=== PATIENT | female | born 1940 | race African-American/Black ===

== ENCOUNTER → 2016-06-02 | Outpatient (CLI) | payer MEDICARE, OTHER ==
[~2016-06-02] VITALS: Ht 170.2 cm; Wt 81.5 kg
[~2016-06-02] MED LIST: ALBU8HFA IH; ALPR0.255 PO; AMLO5TAB66 PO; BENZ-26 PO; BIMA12.5OS OS; BRIN8DRO OS; CHOL2000 PO; CLON.1 PO; DIAZ10 PO; DICLOFENAC; DILT90 PO; DORZ1DRO5 OU; FLUT1DIS3 IH; IPRAHFA IH; LACT30L PO; MEMA5 PO; OMEP20 PO; OXYB5 PO; OXYC10 PO; OXYC5TAB3 PO; PANT40TA25 PO; PREDFORTE; PROMVCC5L PO; ROFL500T PO; SENN8.6C5 PO; SOLI5 PO; TIOT185 IH; TRAZ-144 PO; ZOLP5TAB8 PO
[2016-06-02 13:21] VITALS: BP 166/78
== END | disposition home or self-care (01) ==
LOC: SRCNTR 13:00
PROVIDERS: ATTEND Internal Medicine Critical Care Medicine
DX: J44.9 Chronic obstructive pulmonary disease, unspecified (principal); J96.10 Chronic respiratory failure, unspecified whether with hypoxia or hypercapnia; G47.33 Obstructive sleep apnea (adult) (pediatric); I10 Essential (primary) hypertension
CPT/HCPCS: G0463

== ENCOUNTER → 2016-06-30 | Outpatient (CLI) | payer MEDICARE, OTHER ==
[~2016-06-30] VITALS: Ht 170.2 cm; Wt 83.0 kg
[~2016-06-30] MED LIST changes: +LISI-660 PO
[2016-06-30 13:19] VITALS: BP 148/84
== END | disposition home or self-care (01) ==
LOC: SRCNTR 12:55
PROVIDERS: ATTEND Internal Medicine Critical Care Medicine
DX: I10 Essential (primary) hypertension (principal); J44.1 Chronic obstructive pulmonary disease with (acute) exacerbation; J96.10 Chronic respiratory failure, unspecified whether with hypoxia or hypercapnia; G47.33 Obstructive sleep apnea (adult) (pediatric)
CPT/HCPCS: G0463

== ENCOUNTER 2016-07-12 08:57 | Day surgery (SDC) | payer MEDICARE, OTHER ==
[~2016-07-12] VITALS: Ht 170.2 cm; Wt 83.2 kg
[~2016-07-12 08:57] MED LIST changes: -BIMA12.5OS OS; -BRIN8DRO OS; -DIAZ10 PO; -DICLOFENAC; +FentaNYL CITRATE-PF 100 MCG/2 ML VIAL IVP ONE; +LABETALOL HCL 5 MG/ML 20 ML VIAL IVP ONE; -LISI-660 PO; +MIDAZOLAM HCL 2 MG/2 ML VIAL IVP ONE; -OXYC10 PO; -OXYC5TAB3 PO; -PREDFORTE; -PROMVCC5L PO
[2016-07-12] MEDS ORDERED: RINGERS SOLUTION,LACTATED 500 ML IV ONE ×2 (09:00→09:04)
[2016-07-12] MEDS ORDERED: DICLOFENAC SODIUM 0.1% 2.5 ML OPHTHALMIC SOLUTION ONE (09:03)
[2016-07-12] MEDS ORDERED: TETRACAINE HCL 0.5% 2 ML OPHTHALMIC SOLUTION ONE (09:03)
[2016-07-12] MEDS ORDERED: PHENYLEPHRINE HCL 2.5% 2 ML OPHTHALMIC SOLUTION ONE (09:04)
[2016-07-12] MEDS ORDERED: CYCLOPENTOLATE HCL 2% 2 ML OPHTHALMIC SOLUTION ONE (09:04)
[2016-07-12] MEDS ORDERED: GATIFLOXACIN 0.5% 2.5 ML OPHTHALMIC SOLUTION ONE (09:04)
[2016-07-12] MEDS ORDERED: ACETAMINOPHEN 325 MG TABLET PO PRN (09:15)
[2016-07-12] MEDS ORDERED: TETRACAINE HCL 0.5% 2 ML OPHTHALMIC SOLUTION OS ONE ×2 (09:15→12:00)
[2016-07-12] MEDS: CYCLOPENTOLATE HCL 2% 2 ML OPHTHALMIC SOLUTION OS SCH ×3 (09:46→10:00)
[2016-07-12] MEDS: DICLOFENAC SODIUM 0.1% 2.5 ML OPHTHALMIC SOLUTION OS SCH ×3 (09:46→10:09)
[2016-07-12] MEDS: GATIFLOXACIN 0.5% 2.5 ML OPHTHALMIC SOLUTION OS SCH ×3 (09:46→10:09)
[2016-07-12] MEDS: PHENYLEPHRINE HCL 2.5% 2 ML OPHTHALMIC SOLUTION OS SCH ×3 (09:46→10:01)
[2016-07-12] MEDS ORDERED: OXYC5TAB3 PO (10:48)
[2016-07-12] MEDS ORDERED: AcetaZOLAMIDE 250 MG TABLET PO ONE (11:15)
[2016-07-12] MEDS ORDERED: MOXIFLOXACIN HCL 0.5% 3 ML OPHTHALMIC SOLUTION OS ONE (12:00)
[2016-07-12] MEDS ORDERED: LIDOCAINE HCL/PF 1% 2 ML VIAL INJ ONE (12:00)
[2016-07-12] MEDS ORDERED: HYALURONATE SODIUM 12 MG/ML 0.8 ML SYRINGE IO ONE (12:00)
[2016-07-12] MEDS ORDERED: TETRACAINE HCL VISCOUS 0.5% 0.6 ML OPHTHALMIC SOLUTION OS ONE (12:00)
[2016-07-12] MEDS ORDERED: EPINEPHrine 1:1,000 [1 MG/ML] AMP IVP ONE (12:00)
[2016-07-12] MEDS ORDERED: HYALURONATE SOD/CHONDROITIN SOD 0.5 ML VIAL IO ONE (12:00)
[2016-07-12] MEDS ORDERED: POVIDONE-IODINE 10% 15 ML SOLUTION UD TP ONE (12:00)
[2016-07-12] MEDS ORDERED: BRIMONIDINE TARTRATE 0.15% 5 ML OPHTHALMIC SOLUTION OS ONE (12:00)
[2016-10-03] MEDS ORDERED: PROMVCC5L PO (14:10)
[2016-10-03] MEDS ORDERED: BENZ-26 PO (14:10)
== END 2016-07-12 11:50 | disposition home or self-care (01) ==
LOC: SURGERY 08:57
PROVIDERS: ATTEND Ophthalmology
DX: H26.9 Unspecified cataract (principal); I11.9 Hypertensive heart disease without heart failure; I45.10 Unspecified right bundle-branch block; J44.9 Chronic obstructive pulmonary disease, unspecified; F41.9 Anxiety disorder, unspecified; F32.9 Major depressive disorder, single episode, unspecified; Z88.0 Allergy status to penicillin; Z88.2 Allergy status to sulfonamides; Z98.41 Cataract extraction status, right eye; Z87.891 Personal history of nicotine dependence; Z90.710 Acquired absence of both cervix and uterus
CPT/HCPCS: 66984; 93005; C1780; J2250; J3010; J3490; J7120; J0171

== ENCOUNTER 2016-08-23 08:34 | Emergency (ER) | payer MEDICARE, OTHER ==
[~2016-08-23] VITALS: Ht 162.6 cm; Wt 79.0 kg
[~2016-08-23 08:34] MED LIST changes: -ALPR0.255 PO; -AMLO5TAB66 PO; -BENZ-26 PO; -CHOL2000 PO; -DORZ1DRO5 OU; -FLUT1DIS3 IH; -FentaNYL CITRATE-PF 100 MCG/2 ML VIAL IVP ONE; -IPRAHFA IH; -LABETALOL HCL 5 MG/ML 20 ML VIAL IVP ONE; -LACT30L PO; -MIDAZOLAM HCL 2 MG/2 ML VIAL IVP ONE; +OXYC5TAB3 PO; -PANT40TA25 PO; -ROFL500T PO; -SENN8.6C5 PO; -SOLI5 PO; -TIOT185 IH; -TRAZ-144 PO; -ZOLP5TAB8 PO
[2016-08-23] MEDS ORDERED: PREDFORTE (08:43)
[2016-08-23] MEDS ORDERED: BIMA12.5OS OS (08:43)
[2016-08-23] MEDS ORDERED: BRIN8DRO OS (08:43)
[2016-08-23] MEDS ORDERED: DICLOFENAC (08:43)
[2016-08-23] MEDS ORDERED: PROPARACAINE HCL 0.5% 15 ML OPHTHALMIC SOLUTION OS ONE (09:00)
[2016-08-23] MEDS ORDERED: OxyCODONE HCL/ACETAMINOPHEN 5-325 MG TABLET PO ONE (10:00)
[2016-08-23 10:42] VITALS: BP 128/90
[2016-10-03] MEDS ORDERED: BENZ-26 PO (14:10)
[2016-10-03] MEDS ORDERED: PROMVCC5L PO (14:10)
== END 2016-08-23 11:14 | disposition home or self-care (01) ==
LOC: EMS 08:35
DX: H16.202 Unspecified keratoconjunctivitis, left eye (principal); J44.9 Chronic obstructive pulmonary disease, unspecified; I10 Essential (primary) hypertension; F17.210 Nicotine dependence, cigarettes, uncomplicated; Z88.0 Allergy status to penicillin; Z88.1 Allergy status to other antibiotic agents; Z88.8 Allergy status to other drugs, medicaments and biological substances
CPT/HCPCS: 70450; 99284

== ENCOUNTER → 2016-08-31 | Outpatient (CLI) | payer MEDICARE, OTHER ==
[~2016-08-31] VITALS: Ht 170.2 cm; Wt 80.0 kg
[~2016-08-31] MED LIST changes: +BIMA12.5OS; +BRIN8DRO OP; +DICLOFENAC; +PREDFORTE
[2016-08-31 11:13] VITALS: BP 144/75
== END | disposition home or self-care (01) ==
LOC: SRCNTR 10:56
PROVIDERS: ATTEND Internal Medicine Critical Care Medicine
DX: J96.10 Chronic respiratory failure, unspecified whether with hypoxia or hypercapnia (principal); G47.33 Obstructive sleep apnea (adult) (pediatric); J44.1 Chronic obstructive pulmonary disease with (acute) exacerbation; I11.0 Hypertensive heart disease with heart failure; I50.30 Unspecified diastolic (congestive) heart failure; I27.2 Other secondary pulmonary hypertension; I82.409 Acute embolism and thrombosis of unspecified deep veins of unspecified lower extremity; E66.9 Obesity, unspecified; Z87.891 Personal history of nicotine dependence
CPT/HCPCS: G0463

== ENCOUNTER → 2016-10-03 | Outpatient (CLI) | payer MEDICARE, OTHER ==
[~2016-10-03] VITALS: Ht 170.2 cm; Wt 79.5 kg
[~2016-10-03] MED LIST changes: +BENZ-26 PO; -BIMA12.5OS; +BIMA12.5OS OS; -BRIN8DRO OP; +BRIN8DRO OS; +DIAZ10 PO; +LISI-660 PO; +OXYC10 PO; +PROMVCC5L PO; +TRAZ-144 PO
[2016-10-03 14:03] VITALS: BP 141/83
== END | disposition home or self-care (01) ==
LOC: SRCNTR 13:38
PROVIDERS: ATTEND Internal Medicine Critical Care Medicine
DX: J96.10 Chronic respiratory failure, unspecified whether with hypoxia or hypercapnia (principal); G47.33 Obstructive sleep apnea (adult) (pediatric); F32.9 Major depressive disorder, single episode, unspecified; J44.1 Chronic obstructive pulmonary disease with (acute) exacerbation; I11.0 Hypertensive heart disease with heart failure; I50.30 Unspecified diastolic (congestive) heart failure; I27.2 Other secondary pulmonary hypertension; I35.1 Nonrheumatic aortic (valve) insufficiency; E78.5 Hyperlipidemia, unspecified; J18.9 Pneumonia, unspecified organism; E66.9 Obesity, unspecified; I82.409 Acute embolism and thrombosis of unspecified deep veins of unspecified lower extremity; Z87.891 Personal history of nicotine dependence
CPT/HCPCS: G0463

== ENCOUNTER → 2016-10-13 | Outpatient (CLI) | payer MEDICARE, OTHER ==
[~2016-10-13] VITALS: Ht 170.2 cm; Wt 80.2 kg
[~2016-10-13] MED LIST changes: -LISI-660 PO
[2016-10-13 09:38] VITALS: BP 150/77
== END | disposition home or self-care (01) ==
LOC: SRCNTR 09:33
PROVIDERS: ATTEND Hospitalist
DX: J44.9 Chronic obstructive pulmonary disease, unspecified (principal); I10 Essential (primary) hypertension
CPT/HCPCS: G0463

== ENCOUNTER → 2016-10-13 | Outpatient (CLI) | payer MEDICARE, OTHER ==
[~2016-10-13] MED LIST changes: +BIMA12.5OS; -BIMA12.5OS OS; +BRIN8DRO OP; -BRIN8DRO OS; -DIAZ10 PO; -OXYC10 PO; -TRAZ-144 PO
[2016-10-13 11:33] LABS: BASOPHILS % (AUTO) 0.6 % (0.0-2.0); EOSINOPHILS % (AUTO) 0.5 % (1.0-6.0); HEMATOCRIT 32.9 % (36-46); HEMOGLOBIN 10.6 g/dL (12.0-16.0); LYMPHOCYTES # (AUTO) 1.3 K/uL (1.0-4.8); LYMPHOCYTES % (AUTO) 37.2 % (22.0-44.0); MEAN CORPUSCULAR HEMOGLOBIN 22.1 pg (26.0-34.0); MEAN CORPUSCULAR HGB CONC 32.2 G/dL (31.0-37.0); MEAN CORPUSCULAR VOLUME 69 fL (80-100); MONOCYTES # (AUTO) 0.3 K/uL (0.1-1.0); NEUTROPHILS # (AUTO) 1.9 K/uL (1.8-7.7); NEUTROPHILS % (AUTO) 52.7 % (40.0-70.0); PLATELET COUNT (AUTO) 194 K/uL (150-450); RED BLOOD CELL COUNT(AUTO) 4.79 MIL/uL (4.00-5.20); RED CELL DISTRIBUTION WIDTH 18.1 % (11.5-14.5); WHITE BLOOD COUNT (AUTO) 3.5 K/uL (4.5-11.0)
[2016-10-13 11:45] LABS: ALANINE AMINOTRANSFERASE 19 U/L (12-78); ALBUMIN 3.8 g/dL (3.4-5.0); ANION GAP 6 mmol/L (8-16); ASPARTATE AMINOTRANSFERASE 17 U/L (15-37); BILIRUBIN,TOTAL 0.4 mg/dL (0.1-1.0); CALCIUM, TOTAL 9.5 mg/dL (8.8-10.5); CARBON DIOXIDE 31 mmol/L (22-29); CHLORIDE 104 mmol/L (98-107); CHOL/HDL RATIO 5.5 (3.9-5.7); GLOMERULAR FILTR. RATE CALC > 60 mL/min (>60); POTASSIUM 3.8 mmol/L (3.5-5.1); SODIUM SERUM 141 mmol/L (136-145); THYROID STIMULATING HORMONE 0.81 uIU/mL (0.36-3.74); TOTAL PROTEIN, SERUM 7.6 g/dL (6.4-8.2); UREA NITROGEN, BLOOD 13 mg/dL (7-18)
[2016-10-13 11:53] LABS: RBC MORPHOLOGY COMMENT ABNORMAL RBC MORPH
== END | disposition home or self-care (01) ==
LOC: LABMN 10:47
PROVIDERS: ATTEND Ophthalmology
DX: H20.051 Hypopyon, right eye (principal); I10 Essential (primary) hypertension; J44.9 Chronic obstructive pulmonary disease, unspecified
CPT/HCPCS: 81374; 82164; 84439; 84443; 86038; 86480; 86592; 86780

== ENCOUNTER 2016-10-18 20:26 | Inpatient (IN) | payer MEDICARE, OTHER ==
[~2016-10-18] VITALS: Ht 170.2 cm; Wt 83.8 kg
[~2016-10-18 20:26] MED LIST changes: -BIMA12.5OS; +BIMA12.5OS OS; -BRIN8DRO OP; +BRIN8DRO OS
[2016-10-18 21:12] LABS: BASOPHILS % (AUTO) 0.4 % (0.0-2.0); EOSINOPHILS % (AUTO) 0.7 % (1.0-6.0); HEMATOCRIT 31.7 % (36-46); HEMOGLOBIN 10.3 g/dL (12.0-16.0); LYMPHOCYTES # (AUTO) 1.7 K/uL (1.0-4.8); LYMPHOCYTES % (AUTO) 36.4 % (22.0-44.0); MEAN CORPUSCULAR HEMOGLOBIN 22.5 pg (26.0-34.0); MEAN CORPUSCULAR HGB CONC 32.6 G/dL (31.0-37.0); MEAN CORPUSCULAR VOLUME 69 fL (80-100); MONOCYTES # (AUTO) 0.4 K/uL (0.1-1.0); MONOCYTES % (AUTO) 7.9 % (2.0-9.0); NEUTROPHILS # (AUTO) 2.6 K/uL (1.8-7.7); NEUTROPHILS % (AUTO) 54.6 % (40.0-70.0); PLATELET COUNT (AUTO) 233 K/uL (150-450); RED BLOOD CELL COUNT(AUTO) 4.59 MIL/uL (4.00-5.20); RED CELL DISTRIBUTION WIDTH 18.6 % (11.5-14.5); WHITE BLOOD COUNT (AUTO) 4.7 K/uL (4.5-11.0)
[2016-10-18 21:30] LABS: PROTHROMBIN TIME 10.1 SEC (9.4-11.6)
[2016-10-18 21:36] LABS: B-TYPE NATRIURETIC PEPTIDE 49 pg/mL (0-100)
[2016-10-18 21:37] LABS: ANION GAP 6 mmol/L (8-16); CALCIUM, TOTAL 9.2 mg/dL (8.8-10.5); CARBON DIOXIDE 30 mmol/L (22-29); CHLORIDE 105 mmol/L (98-107); CREATININE 1.19 mg/dL (0.60-1.30); GLOMERULAR FILTR. RATE CALC 53 mL/min (>60); POTASSIUM 3.6 mmol/L (3.5-5.1); SODIUM SERUM 141 mmol/L (136-145); UREA NITROGEN, BLOOD 19 mg/dL (7-18)
[2016-10-18 21:43] LABS: ALANINE AMINOTRANSFERASE 14 U/L (12-78); ALBUMIN 3.6 g/dL (3.4-5.0); ASPARTATE AMINOTRANSFERASE 12 U/L (15-37); BILIRUBIN,TOTAL 0.2 mg/dL (0.1-1.0); CREATINE KINASE, TOTAL 54 U/L (26-192); TOTAL PROTEIN, SERUM 7.3 g/dL (6.4-8.2)
[2016-10-18 21:53] LABS: RBC MORPHOLOGY COMMENT ABNORMAL RBC MORPH
[2016-10-18] MEDS ORDERED: NITROGLYCERIN 0.4 MG SUBLINGUAL TABLET #25 SL ONE (22:00)
[2016-10-18] MEDS ORDERED: ASPIRIN 81 MG CHEWABLE TABLET PO ONE (22:00)
[2016-10-18] MEDS ORDERED: IOVERSOL 350 MG/ML 100 ML VIAL ONE (22:13)
[2016-10-18] MEDS ORDERED: SODIUM CHLORIDE 0.9% 100 ML ONE (22:14)
[2016-10-19] VITALS (7 sets, daily range): BP systolic 110–163; BP diastolic 54–78
[2016-10-19 00:43] LABS: APPEARANCE,URINE CLEAR (CLEAR); GLUCOSE, URINE (UA) NEGATIVE (NEGATIVE); KETONES,URINE NEGATIVE (NEGATIVE); LEUKOCYTE ESTERASE ,URINE NEGATIVE (NEGATIVE); OCCULT BLOOD,URINE NEGATIVE (NEGATIVE); PROTEIN,URINE NEGATIVE (NEGATIVE)
[2016-10-19 00:44] LABS: ADD UA MICROSCOPIC NO
[2016-10-19] MEDS ORDERED: OXYC10 PO (02:13)
[2016-10-19] MEDS ORDERED: DIAZ10 PO (02:13)
[2016-10-19] MEDS ORDERED: TRAZ-144 PO (02:33)
[2016-10-19] MEDS ORDERED: TraZODone HCL 50 MG TABLET PO PRN (02:45)
[2016-10-19] MEDS ORDERED: PHENYLEPHRINE/PROMETH/CODEINE 5 ML ORAL.SYG PO PRN (02:45)
[2016-10-19] MEDS ORDERED: DIAZEPAM 5 MG TABLET PO PRN (02:45)
[2016-10-19] MEDS ORDERED: ALBUTEROL SULFATE HFA 90 MCG/PUFF 8 GM INHALER IH SCH (06:00)
[2016-10-19] MEDS ORDERED: ALBUTEROL SULFATE HFA 90 MCG/PUFF 8 GM INHALER IH PRN (06:00)
[2016-10-19] MEDS ORDERED: MAGNESIUM HYDROXIDE SUSPENSION 30 ML UDCUP PO PRN (06:15)
[2016-10-19] MEDS ORDERED: HydrALAZINE HCL 20 MG/ML VIAL IVP PRN (06:15)
[2016-10-19] MEDS ORDERED: ACETAMINOPHEN 325 MG TABLET PO PRN (06:15)
[2016-10-19] MEDS ORDERED: 0.9% SODIUM CHLORIDE 10 ML SYRINGE IVP PRN (06:15)
[2016-10-19] MEDS ORDERED: DOCUSATE SODIUM 100 MG CAPSULE PO PRN (06:15)
[2016-10-19] MEDS ORDERED: BISACODYL 10 MG RECTAL RECTAL SUPPOSITORY PR PRN (06:15)
[2016-10-19] MEDS ORDERED: ONDANSETRON HCL 4 MG/2 ML VIAL IVP PRN (06:15)
[2016-10-19] MEDS: OXYBUTYNIN CHLORIDE 5 MG TABLET PO SCH (06:19)
[2016-10-19] MEDS: BIMATOPROST 0.01% 2.5 ML OPHTHALMIC SOLUTION OS SCH (08:03)
[2016-10-19] MEDS: DILTIAZEM HCL 60 MG TABLET PO SCH ×4 (08:03→21:00)
[2016-10-19] MEDS: BENZONATATE 100 MG CAPSULE PO SCH ×3 (08:04→20:50)
[2016-10-19] MEDS: LISINOPRIL 5 MG TABLET PO SCH (08:04)
[2016-10-19] MEDS: HEPARIN SODIUM,PORCINE 5,000 UNITS/ML VIAL SQ SCH ×2 (08:05→20:50)
[2016-10-19] MEDS: ASPIRIN 81 MG CHEWABLE TABLET PO SCH (08:05)
[2016-10-19] MEDS: MEMANTINE HCL 5 MG TABLET PO SCH (08:05)
[2016-10-19] MEDS: OMEPRAZOLE 20 MG CAPSULE PO SCH (08:05)
[2016-10-19] MEDS: CloNIDine HCL 0.1 MG TABLET PO SCH (08:06)
[2016-10-19 08:15] LABS: BASOPHILS % (AUTO) 0.6 % (0.0-2.0); EOSINOPHILS % (AUTO) 0.8 % (1.0-6.0); HEMOGLOBIN 10.1 g/dL (12.0-16.0); LYMPHOCYTES # (AUTO) 1.5 K/uL (1.0-4.8); LYMPHOCYTES % (AUTO) 37.2 % (22.0-44.0); MEAN CORPUSCULAR HEMOGLOBIN 22.5 pg (26.0-34.0); MEAN CORPUSCULAR HGB CONC 32.5 G/dL (31.0-37.0); MEAN CORPUSCULAR VOLUME 69 fL (80-100); MONOCYTES # (AUTO) 0.3 K/uL (0.1-1.0); MONOCYTES % (AUTO) 8.7 % (2.0-9.0); NEUTROPHILS # (AUTO) 2.1 K/uL (1.8-7.7); NEUTROPHILS % (AUTO) 52.7 % (40.0-70.0); PLATELET COUNT (AUTO) 211 K/uL (150-450); RED BLOOD CELL COUNT(AUTO) 4.48 MIL/uL (4.00-5.20)
[2016-10-19 08:26] LABS: ANION GAP 6 mmol/L (8-16); CARBON DIOXIDE 30 mmol/L (22-29); CHLORIDE 105 mmol/L (98-107); CREATININE 0.91 mg/dL (0.60-1.30); GLOMERULAR FILTR. RATE CALC > 60 mL/min (>60); POTASSIUM 3.3 mmol/L (3.5-5.1); SODIUM SERUM 141 mmol/L (136-145); UREA NITROGEN, BLOOD 14 mg/dL (7-18)
[2016-10-19 08:26] LABS: RBC MORPHOLOGY COMMENT ABNORMAL RBC MORPH
[2016-10-19 08:35] LABS: ALANINE AMINOTRANSFERASE 14 U/L (12-78); ALBUMIN 3.3 g/dL (3.4-5.0); ASPARTATE AMINOTRANSFERASE 11 U/L (15-37); BILIRUBIN,TOTAL 0.2 mg/dL (0.1-1.0); CHOL/HDL RATIO 5.7 (3.9-5.7); PHOSPHORUS 3.8 mg/dL (2.5-4.9); TOTAL PROTEIN, SERUM 6.8 g/dL (6.4-8.2)
[2016-10-19] MEDS ORDERED: BRIMONIDINE TART OS SCH (09:00)
[2016-10-19] MEDS ORDERED: BRINZOLAMIDE OS SCH (09:00)
[2016-10-19 09:14] LABS: HEMOGLOBIN A1C 6.1 % (4.5-6.2)
[2016-10-19 09:21] LABS: FERRITIN 82 ng/mL (8-252)
[2016-10-19] MEDS ORDERED: MAGNESIUM SULFATE 4 GM/WATER 100 ML IV PRN (11:15)
[2016-10-19] MEDS ORDERED: POTASSIUM CHLORIDE 20 MEQ ER TABLET PO PRN (11:15)
[2016-10-19] MEDS ORDERED: POTASSIUM CHL 10 MEQ/WATER 50 ML IV PRN (11:15)
[2016-10-19] MEDS ORDERED: MAGNESIUM SULFATE 2 GM in DEXTROSE 5%-WATER 50 ML IV PRN (11:15)
[2016-10-19] MEDS: MAGNESIUM OXIDE 400 MG TABLET PO PRN ×2 (13:11→18:51)
[2016-10-20] MEDS: MAGNESIUM OXIDE 400 MG TABLET PO PRN (01:01)
[2016-10-20] MEDS: OxyCODONE HCL 5 MG IR TABLET PO PRN ×2 (01:01→08:17)
[2016-10-20 04:29] VITALS: BP 163/93
[2016-10-20] MEDS: OXYBUTYNIN CHLORIDE 5 MG TABLET PO SCH (06:49)
[2016-10-20 07:16] VITALS: BP 161/80
[2016-10-20] MEDS: BENZONATATE 100 MG CAPSULE PO SCH (08:17)
[2016-10-20] MEDS: CloNIDine HCL 0.1 MG TABLET PO SCH (08:17)
[2016-10-20] MEDS: ASPIRIN 81 MG CHEWABLE TABLET PO SCH (08:17)
[2016-10-20] MEDS: OMEPRAZOLE 20 MG CAPSULE PO SCH (08:18)
[2016-10-20] MEDS: LISINOPRIL 5 MG TABLET PO SCH (08:18)
[2016-10-20] MEDS: BIMATOPROST 0.01% 2.5 ML OPHTHALMIC SOLUTION OS SCH (08:18)
[2016-10-20] MEDS: MEMANTINE HCL 5 MG TABLET PO SCH (08:18)
[2016-10-20] MEDS: HEPARIN SODIUM,PORCINE 5,000 UNITS/ML VIAL SQ SCH (08:18)
[2016-10-20] MEDS: DILTIAZEM HCL 60 MG TABLET PO SCH ×2 (08:18→13:00)
[2016-10-20 11:08] VITALS: BP 137/56
[2016-10-20] MEDS ORDERED: LISI-660 PO (14:51)
[2016-10-20] MEDS ORDERED: OXYGEN THERAPY IH SCH (20:00)
== END 2016-10-20 15:25 | disposition home or self-care (01) | DRG 313 ==
LOC: EMS 20:28 → 5S 10-19 00:30
PROVIDERS: ADMIT Internal Medicine; ATTEND Internal Medicine
DX: R07.89 Other chest pain (principal); J44.9 Chronic obstructive pulmonary disease, unspecified; I11.9 Hypertensive heart disease without heart failure; K21.9 Gastro-esophageal reflux disease without esophagitis; E87.6 Hypokalemia; F32.9 Major depressive disorder, single episode, unspecified; Z98.84 Bariatric surgery status; Z90.710 Acquired absence of both cervix and uterus; F17.210 Nicotine dependence, cigarettes, uncomplicated; F03.90 Unspecified dementia, unspecified severity, without behavioral disturbance, psychotic disturbance, mood disturbance, and anxiety; Z88.6 Allergy status to analgesic agent; Z88.0 Allergy status to penicillin; Z88.2 Allergy status to sulfonamides
CPT/HCPCS: 71275; 82270; 82607; 82728; 82746; 83036; 83540; 83550; 83735; 84100; 84132; 85379; 93005; 93306; 97161; 99285; J1644; J2370; J3535; J7050

== ENCOUNTER → 2016-11-03 | Outpatient (CLI) | payer MEDICARE, OTHER ==
[~2016-11-03] VITALS: Ht 170.2 cm; Wt 79.4 kg
[~2016-11-03] MED LIST changes: +ALPR0.255 PO; +AMIT25TA34 PO; +AMIT25TA9 PO; +AMLO5TAB66 PO; +ANTI-HYPERTENSIVE; +CHOL2000 PO; +DIAZ10 PO; +DIAZ10TA PO; +DILT120C12 PO; +DILT300C33 PO; +DILT360T14 PO; +DORZ1DRO5 OU; +FLUT1DIS3 IH; +IPRAHFA IH; +LACT30L PO; +LEVO250 PO; +LISI-660 PO; +MULT-248 PO; +OXYC10 PO; +OXYC1TAB72 PO; +PANT40TA25 PO; +PERCT10 PO; +PRED20 PO; +PREM625 PO; +RIVA1TAB PO; +RIVA20TA PO; +ROFL500T PO; +SENN8.6C5 PO; +SOLI5 PO; +TIOT185 IH; +TRAZ-144 PO; +ZOLP5TAB8 PO
[2016-11-03 14:26] VITALS: BP 128/66
== END | disposition home or self-care (01) ==
LOC: SRCNTR 14:20
PROVIDERS: ATTEND Internal Medicine
DX: J44.9 Chronic obstructive pulmonary disease, unspecified (principal); K21.9 Gastro-esophageal reflux disease without esophagitis; G47.33 Obstructive sleep apnea (adult) (pediatric); I11.0 Hypertensive heart disease with heart failure; I50.9 Heart failure, unspecified
CPT/HCPCS: G0463

== ENCOUNTER → 2016-11-17 | Outpatient (CLI) | payer MEDICARE, OTHER ==
[~2016-11-17] MED LIST changes: -ALPR0.255 PO; -AMIT25TA34 PO; -AMIT25TA9 PO; -AMLO5TAB66 PO; -ANTI-HYPERTENSIVE; -CHOL2000 PO; -DIAZ10TA PO; -DILT120C12 PO; -DILT300C33 PO; -DILT360T14 PO; -DORZ1DRO5 OU; -FLUT1DIS3 IH; -IPRAHFA IH; -LACT30L PO; -LEVO250 PO; -MULT-248 PO; -OXYC1TAB72 PO; -OXYC5TAB3 PO; -PANT40TA25 PO; -PERCT10 PO; -PRED20 PO; -PREM625 PO; -RIVA1TAB PO; -RIVA20TA PO; -ROFL500T PO; -SENN8.6C5 PO; -SOLI5 PO; -TIOT185 IH; -ZOLP5TAB8 PO
== END | disposition home or self-care (01) ==
LOC: RESP 09:52
PROVIDERS: ATTEND Internal Medicine
DX: J44.9 Chronic obstructive pulmonary disease, unspecified (principal)
CPT/HCPCS: 94010; 94726; 94727; 94729

== ENCOUNTER 2016-12-06 17:26 | Emergency (ER) | payer MEDICARE, OTHER ==
[~2016-12-06] VITALS: Ht 170.2 cm; Wt 81.8 kg
[2016-12-06] MEDS ORDERED: OMEP40CA12 PO (17:38)
[2016-12-06] MEDS ORDERED: ASPIRIN 81 MG CHEWABLE TABLET PO ONE (17:45)
[2016-12-06 18:29] LABS: BASOPHILS % (AUTO) 0.3 % (0.0-2.0); EOSINOPHILS % (AUTO) 0.6 % (1.0-6.0); HEMATOCRIT 31.8 % (36-46); HEMOGLOBIN 10.3 g/dL (12.0-16.0); LYMPHOCYTES # (AUTO) 1.4 K/uL (1.0-4.8); LYMPHOCYTES % (AUTO) 30.3 % (22.0-44.0); MEAN CORPUSCULAR HEMOGLOBIN 22.2 pg (26.0-34.0); MEAN CORPUSCULAR HGB CONC 32.3 G/dL (31.0-37.0); MEAN CORPUSCULAR VOLUME 69 fL (80-100); MONOCYTES # (AUTO) 0.4 K/uL (0.1-1.0); MONOCYTES % (AUTO) 9.2 % (2.0-9.0); NEUTROPHILS # (AUTO) 2.7 K/uL (1.8-7.7); NEUTROPHILS % (AUTO) 59.6 % (40.0-70.0); PLATELET COUNT (AUTO) 185 K/uL (150-450); RED BLOOD CELL COUNT(AUTO) 4.62 MIL/uL (4.00-5.20); RED CELL DISTRIBUTION WIDTH 18.1 % (11.5-14.5); WHITE BLOOD COUNT (AUTO) 4.5 K/uL (4.5-11.0)
[2016-12-06 18:42] LABS: PROTHROMBIN TIME 10.3 SEC (9.4-11.6)
[2016-12-06 18:43] LABS: ANION GAP 9 mmol/L (8-16); CALCIUM, TOTAL 9.6 mg/dL (8.8-10.5); CARBON DIOXIDE 30 mmol/L (22-29); CHLORIDE 106 mmol/L (98-107); CREATININE 0.93 mg/dL (0.60-1.30); GLOMERULAR FILTR. RATE CALC > 60 mL/min (>60); POTASSIUM 3.5 mmol/L (3.5-5.1); SODIUM SERUM 145 mmol/L (136-145); UREA NITROGEN, BLOOD 14 mg/dL (7-18)
[2016-12-06 18:46] LABS: ALANINE AMINOTRANSFERASE 13 U/L (12-78); ALBUMIN 3.4 g/dL (3.4-5.0); ASPARTATE AMINOTRANSFERASE 13 U/L (15-37); BILIRUBIN,TOTAL 0.2 mg/dL (0.1-1.0); CREATINE KINASE, TOTAL 44 U/L (26-192); TOTAL PROTEIN, SERUM 7.2 g/dL (6.4-8.2)
[2016-12-06] MEDS ORDERED: ONDANSETRON HCL 4 MG/2 ML VIAL IVP ONE (19:00)
[2016-12-06] MEDS ORDERED: MORPHINE SULFATE 2 MG/ML SYRINGE IVP ONE (19:00)
[2016-12-06] MEDS ORDERED: PANTOPRAZOLE SODIUM 40 MG/VIAL IVP ONE (19:00)
[2016-12-06] MEDS ORDERED: NITROGLYCERIN 2% (1 GM=INCH) PACKET TP ONE (19:00)
[2016-12-06 19:13] LABS: APPEARANCE,URINE CLOUDY (CLEAR); GLUCOSE, URINE (UA) NEGATIVE (NEGATIVE); KETONES,URINE NEGATIVE (NEGATIVE); PROTEIN,URINE TRACE (NEGATIVE)
[2016-12-06 19:31] LABS: OCCULT BLOOD,URINE TRACE (NEGATIVE)
[2016-12-06 19:32] LABS: ADD UA MICROSCOPIC YES; CALCIUM OXALATE CRYSTALS,UR Many /LPF (None Seen); LEUKOCYTE ESTERASE ,URINE SMALL (NEGATIVE); SQUAMOUS EPITHELIAL CELL,UR Many /LPF (None Seen)
[2016-12-06 19:34] LABS: RBC MORPHOLOGY COMMENT ABNORMAL RBC MORPH
[2016-12-06 19:55] LABS: B-TYPE NATRIURETIC PEPTIDE 83 pg/mL (0-100)
[2016-12-06] MEDS ORDERED: AmLODIPine BESYLATE 5 MG TABLET PO ONE (20:45)
[2016-12-06 21:50] VITALS: BP 175/75
== END 2016-12-06 21:55 | disposition home or self-care (01) ==
LOC: EMS 17:28
DX: K29.70 Gastritis, unspecified, without bleeding (principal); N39.0 Urinary tract infection, site not specified; R07.89 Other chest pain; R42 Dizziness and giddiness; J44.9 Chronic obstructive pulmonary disease, unspecified; I10 Essential (primary) hypertension; F17.210 Nicotine dependence, cigarettes, uncomplicated; Z88.5 Allergy status to narcotic agent; Z88.2 Allergy status to sulfonamides; Z88.0 Allergy status to penicillin; Z98.84 Bariatric surgery status
CPT/HCPCS: 36415; 71010; 80053; 81001; 82550; 83690; 83880; 84484; 85025; 85610; 85730; 87086; 93005; 96374; 96375; 99285; C9113; J2270; J2405

== ENCOUNTER → 2016-12-12 | Outpatient (CLI) | payer MEDICARE, OTHER ==
[~2016-12-12] VITALS: Ht 170.2 cm; Wt 78.0 kg
[~2016-12-12] MED LIST changes: -DICLOFENAC; +OMEP40CA12 PO; -PREDFORTE
[2016-12-12 13:56] VITALS: BP 141/59
== END | disposition home or self-care (01) ==
LOC: SRCNTR 13:26
PROVIDERS: ATTEND Internal Medicine
DX: I10 Essential (primary) hypertension (principal); K21.9 Gastro-esophageal reflux disease without esophagitis; R06.00 Dyspnea, unspecified; J44.9 Chronic obstructive pulmonary disease, unspecified
CPT/HCPCS: G0463

== ENCOUNTER 2016-12-20 17:14 | Emergency (ER) | payer MEDICARE, OTHER ==
[~2016-12-20] VITALS: Ht 170.2 cm; Wt 81.8 kg
[~2016-12-20 17:14] MED LIST changes: -OMEP20 PO
[2016-12-20] MEDS ORDERED: ROFL500T PO (17:28)
[2016-12-20] MEDS ORDERED: FentaNYL CITRATE-PF 100 MCG/2 ML VIAL IVP ONE (17:30)
[2016-12-20 17:54] LABS: CALCIUM, TOTAL 9.9 mg/dL (8.8-10.5); CREATININE 1.18 mg/dL (0.60-1.30); POTASSIUM 3.7 mmol/L (3.5-5.1)
[2016-12-20 18:00] LABS: BILIRUBIN,TOTAL 0.3 mg/dL (0.1-1.0); TOTAL PROTEIN, SERUM 8.3 g/dL (6.4-8.2)
[2016-12-20 18:21] LABS: BASOPHILS % (AUTO) 0.4 % (0.0-2.0); EOSINOPHILS % (AUTO) 0.6 % (1.0-6.0); HEMATOCRIT 36.6 % (36-46); HEMOGLOBIN 11.6 g/dL (12.0-16.0); LYMPHOCYTES # (AUTO) 2.1 K/uL (1.0-4.8); LYMPHOCYTES % (AUTO) 42.7 % (22.0-44.0); MEAN CORPUSCULAR HEMOGLOBIN 22.2 pg (26.0-34.0); MEAN CORPUSCULAR HGB CONC 31.7 G/dL (31.0-37.0); MEAN CORPUSCULAR VOLUME 70 fL (80-100); MONOCYTES # (AUTO) 0.3 K/uL (0.1-1.0); NEUTROPHILS # (AUTO) 2.4 K/uL (1.8-7.7); NEUTROPHILS % (AUTO) 49.3 % (40.0-70.0); PLATELET COUNT (AUTO) 273 K/uL (150-450); RBC MORPHOLOGY COMMENT ABNORMAL RBC MORPH; RED BLOOD CELL COUNT(AUTO) 5.22 MIL/uL (4.00-5.20); RED CELL DISTRIBUTION WIDTH 18.6 % (11.5-14.5)
[2016-12-20 18:51] LABS: APPEARANCE,URINE CLEAR (CLEAR); GLUCOSE, URINE (UA) NEGATIVE (NEGATIVE); KETONES,URINE NEGATIVE (NEGATIVE); LEUKOCYTE ESTERASE ,URINE NEGATIVE (NEGATIVE); OCCULT BLOOD,URINE NEGATIVE (NEGATIVE); PH,URINE 5.5 (5.0-8.0); PROTEIN,URINE NEGATIVE (NEGATIVE)
[2016-12-20 19:02] LABS: RBC,URINE None Seen /HPF (0-2)
[2016-12-20] MEDS ORDERED: DICYCLOMINE HCL 20 MG TABLET PO ONE (19:30)
[2016-12-20] MEDS ORDERED: MAG HYDROX/AL HYDROX/SIMETH ES 30 ML SUSPENSION UDCUP PO ONE (21:00)
[2016-12-20] MEDS ORDERED: HYOSCYAMINE SULFATE 0.125 MG TAB PO ONE (21:00)
[2016-12-20] MEDS ORDERED: ESOMEPRAZOLE MAG TRIHYDRATE 20 MG CAPSULE PO ONE (21:00)
[2016-12-20] MEDS ORDERED: PHENOBARB/HYOSCY/ATROPINE/SCOP 5 ML UDCUP ELIXIR PO ONE (21:00)
[2016-12-20 22:22] VITALS: BP 125/63
== END 2016-12-20 22:25 | disposition home or self-care (01) ==
LOC: EMS 17:16
DX: R10.13 Epigastric pain (principal); D18.09 Hemangioma of other sites; I10 Essential (primary) hypertension; J44.9 Chronic obstructive pulmonary disease, unspecified; F17.210 Nicotine dependence, cigarettes, uncomplicated; Z88.0 Allergy status to penicillin; Z88.1 Allergy status to other antibiotic agents; Z88.8 Allergy status to other drugs, medicaments and biological substances
CPT/HCPCS: 36415; 71010; 74177; 80053; 81001; 83690; 84484; 84703; 85025; 93005; 96374; 99285; J3010

== ENCOUNTER → 2016-12-23 | Outpatient (CLI) | payer MEDICARE, OTHER ==
[~2016-12-23] VITALS: Ht 170.2 cm; Wt 78.5 kg
[~2016-12-23] MED LIST changes: -ALBU8HFA IH; -BIMA12.5OS OS; -BRIN8DRO OS; -CLON.1 PO; -DIAZ10 PO; -LISI-660 PO; -OXYC10 PO; -PROMVCC5L PO; +ROFL500T PO; -TRAZ-144 PO; +[UNRECOGNIZED DRUG - CODE] OP
[2016-12-23 11:44] VITALS: BP 130/82
== END | disposition home or self-care (01) ==
LOC: SRCNTR 11:20
PROVIDERS: ATTEND Hospitalist
DX: I11.0 Hypertensive heart disease with heart failure (principal); I50.32 Chronic diastolic (congestive) heart failure; E78.5 Hyperlipidemia, unspecified; E11.9 Type 2 diabetes mellitus without complications; M10.9 Gout, unspecified; J44.9 Chronic obstructive pulmonary disease, unspecified; F03.90 Unspecified dementia, unspecified severity, without behavioral disturbance, psychotic disturbance, mood disturbance, and anxiety; B37.3 Candidiasis of vulva and vagina; H26.9 Unspecified cataract; H61.20 Impacted cerumen, unspecified ear; L13.0 Dermatitis herpetiformis; I35.1 Nonrheumatic aortic (valve) insufficiency; E66.9 Obesity, unspecified; Z86.718 Personal history of other venous thrombosis and embolism; Z98.84 Bariatric surgery status; Z87.891 Personal history of nicotine dependence; Z88.0 Allergy status to penicillin
CPT/HCPCS: G0463

== ENCOUNTER 2016-12-24 14:31 | Emergency (ER) | payer MEDICARE, OTHER ==
[~2016-12-24] VITALS: Ht 170.2 cm; Wt 81.5 kg
[~2016-12-24 14:31] MED LIST changes: -[UNRECOGNIZED DRUG - CODE] OP
[2016-12-24] MEDS ORDERED: [UNRECOGNIZED DRUG - CODE] OP (14:51)
[2016-12-24] MEDS ORDERED: FLUORESCEIN SODIUM 1 MG STRIP OS ONE (16:00)
[2016-12-24] MEDS ORDERED: PROPARACAINE HCL 0.5% 15 ML OPHTHALMIC SOLUTION OS ONE (16:00)
[2016-12-24] MEDS ORDERED: ERYTHROMYCIN 0.5% 3.5 GM TUBE OPHTHALMIC OINTMENT OS ONE (17:15)
[2016-12-24 18:28] VITALS: BP 139/92
== END 2016-12-24 18:29 | disposition home or self-care (01) ==
LOC: EMS 14:33
DX: H10.89 Other conjunctivitis (principal); J44.9 Chronic obstructive pulmonary disease, unspecified; I10 Essential (primary) hypertension; F17.210 Nicotine dependence, cigarettes, uncomplicated; Z98.84 Bariatric surgery status; Z88.0 Allergy status to penicillin; Z88.2 Allergy status to sulfonamides; Z88.5 Allergy status to narcotic agent
CPT/HCPCS: 99284

== ENCOUNTER 2017-02-06 11:54 | Inpatient (IN) | payer MEDICARE, OTHER ==
[~2017-02-06 11:54] MED LIST changes: -0.9% SODIUM CHLORIDE 10 ML SYRINGE IVP PRN; -AMLO2.5T PO; -ASPIRIN 325 MG TABLET PO SCH; -ATOR10TA84 PO; -DILTIAZEM HCL CD 120 MG ER CAPSULE PO SCH; -LEVO250 PO; -METO25 PO; -MIRT15 PO; -NITROGLYCERIN 2% (1 GM=INCH) PACKET TP SCH; -PANTOPRAZOLE SODIUM 40 MG DR TABLET PO SCH; -TEMAZEPAM 15 MG CAPSULE PO SCH
[2017-02-06] MEDS ORDERED: TEMAZEPAM 15 MG CAPSULE PO PRN (14:00)
[2017-02-06 14:14] VITALS: BP 184/70
[2017-02-06 14:21] LABS: BASOPHILS # (AUTO) 0.02 K/uL (0.00-0.20); BASOPHILS % (AUTO) 0.4 % (0.0-2.0); EOSINOPHILS # (AUTO) 0.02 K/uL (0.00-0.70); EOSINOPHILS % (AUTO) 0.51 % (1.0-6.0); HEMATOCRIT 32.3 % (36-46); HEMOGLOBIN 10.5 g/dL (12.0-16.0); LYMPHOCYTES # (AUTO) 1.3 K/uL (1.0-4.8); LYMPHOCYTES % (AUTO) 33.5 % (22.0-44.0); MEAN CORPUSCULAR HEMOGLOBIN 22.6 pg (26.0-34.0); MEAN CORPUSCULAR HGB CONC 32.3 G/dL (31.0-37.0); MEAN CORPUSCULAR VOLUME 70 fL (80-100); MONOCYTES # (AUTO) 0.3 K/uL (0.1-1.0); MONOCYTES % (AUTO) 8.7 % (2.0-9.0); NEUTROPHILS # (AUTO) 2.2 K/uL (1.8-7.7); NEUTROPHILS % (AUTO) 56.9 % (40.0-70.0); PLATELET COUNT (AUTO) 176 K/uL (150-450); RED BLOOD CELL COUNT(AUTO) 4.63 MIL/uL (4.00-5.20); RED CELL DISTRIBUTION WIDTH 18.3 % (11.5-14.5); WHITE BLOOD COUNT (AUTO) 3.9 K/uL (4.5-11.0)
[2017-02-06 14:36] LABS: ANION GAP 4 mmol/L (8-16); CALCIUM, TOTAL 9.3 mg/dL (8.8-10.5); CARBON DIOXIDE 33 mmol/L (22-29); CHLORIDE 104 mmol/L (98-107); CREATININE 0.76 mg/dL (0.60-1.30); GLOMERULAR FILTR. RATE CALC > 60 mL/min (>60); POTASSIUM 3.8 mmol/L (3.5-5.1); SODIUM SERUM 141 mmol/L (136-145); UREA NITROGEN, BLOOD 12 mg/dL (7-18)
[2017-02-06 14:43] LABS: ALANINE AMINOTRANSFERASE 14 U/L (12-78); ALBUMIN 3.5 g/dL (3.4-5.0); AMYLASE 59 U/L (25-115); ASPARTATE AMINOTRANSFERASE 13 U/L (15-37); BILIRUBIN,TOTAL 0.3 mg/dL (0.1-1.0); CREATINE KINASE, TOTAL 45 U/L (26-192); TOTAL PROTEIN, SERUM 7.1 g/dL (6.4-8.2)
[2017-02-06 14:45] LABS: RBC MORPHOLOGY COMMENT ABNORMAL RBC MORPH
[2017-02-06 15:22] VITALS: BP 154/81
[2017-02-06] MEDS ORDERED: MAGNESIUM SULFATE 3 GM in DEXTROSE 5%-WATER 100 ML IV ONE (16:00)
[2017-02-06] MEDS ORDERED: SODIUM CHLORIDE 0.9% 250 ML IV ONE (17:59)
[2017-02-06] MEDS: NITROGLYCERIN 2% (1 GM=INCH) PACKET TP SCH (18:49)
[2017-02-06 20:01] VITALS: BP 154/84
[2017-02-07] VITALS (8 sets, daily range): BP systolic 131–166; BP diastolic 72–93
[2017-02-07] MEDS: NITROGLYCERIN 2% (1 GM=INCH) PACKET TP SCH ×4 (00:04→18:00)
[2017-02-07] MEDS ORDERED: IPRATROPIUM BROMIDE 0.5 MG/2.5 ML NEB SOLUTION NEB PRN (07:45)
[2017-02-07] MEDS ORDERED: MAGNESIUM HYDROXIDE SUSPENSION 30 ML UDCUP PO PRN (07:45)
[2017-02-07] MEDS ORDERED: SESTAMIBI TC99M/UD ISOTOPE 1 EA INJ INJ ONE ×2 (07:45→10:55)
[2017-02-07] MEDS ORDERED: ACETAMINOPHEN 325 MG TABLET PO PRN (07:45)
[2017-02-07] MEDS ORDERED: ZOLPIDEM TARTRATE 10 MG TABLET PO PRN (07:45)
[2017-02-07] MEDS ORDERED: ONDANSETRON HCL 4 MG/2 ML VIAL IVP PRN (07:45)
[2017-02-07] MEDS ORDERED: PANTOPRAZOLE SODIUM 40 MG DR TABLET PO SCH (09:00)
[2017-02-07] MEDS ORDERED: DILTIAZEM HCL CD 120 MG ER CAPSULE PO SCH (09:00)
[2017-02-07] MEDS ORDERED: DULoxetine HCL 20 MG CAPSULE PO SCH (09:00)
[2017-02-07] MEDS ORDERED: PANTOPRAZOLE SODIUM 40 MG/VIAL IVP SCH (09:00)
[2017-02-07] MEDS ORDERED: ASPIRIN 325 MG TABLET PO SCH (09:00)
[2017-02-07] MEDS ORDERED: ASPIRIN 81 MG CHEWABLE TABLET PO SCH (09:00)
[2017-02-07] MEDS: HEPARIN SODIUM,PORCINE 5,000 UNITS/ML VIAL SQ SCH ×2 (09:01→16:30)
[2017-02-07] MEDS: DOCUSATE SODIUM 100 MG CAPSULE PO SCH ×2 (09:01→20:14)
[2017-02-07] MEDS ORDERED: REGADENOSON 0.4 MG/5 ML PF SYRINGE IVP ONE ×2 (10:50→21:29)
[2017-02-07 12:31] LABS: ANION GAP 11 mmol/L (8-16); CALCIUM, TOTAL 9.3 mg/dL (8.8-10.5); CARBON DIOXIDE 28 mmol/L (22-29); CHLORIDE 105 mmol/L (98-107); CREATININE 0.74 mg/dL (0.60-1.30); GLOMERULAR FILTR. RATE CALC > 60 mL/min (>60); POTASSIUM 3.8 mmol/L (3.5-5.1); SODIUM SERUM 144 mmol/L (136-145); UREA NITROGEN, BLOOD 14 mg/dL (7-18)
[2017-02-07 12:37] LABS: BASOPHILS % (AUTO) 0.2 % (0.0-2.0); EOSINOPHILS % (AUTO) 0.5 % (1.0-6.0); HEMATOCRIT 33.9 % (36-46); HEMOGLOBIN 10.8 g/dL (12.0-16.0); LYMPHOCYTES # (AUTO) 1.2 K/uL (1.0-4.8); LYMPHOCYTES % (AUTO) 28.1 % (22.0-44.0); MEAN CORPUSCULAR HEMOGLOBIN 22.8 pg (26.0-34.0); MEAN CORPUSCULAR HGB CONC 31.8 G/dL (31.0-37.0); MEAN CORPUSCULAR VOLUME 72 fL (80-100); MONOCYTES # (AUTO) 0.3 K/uL (0.1-1.0); MONOCYTES % (AUTO) 8.1 % (2.0-9.0); NEUTROPHILS # (AUTO) 2.7 K/uL (1.8-7.7); NEUTROPHILS % (AUTO) 63.1 % (40.0-70.0); PLATELET COUNT (AUTO) 216 K/uL (150-450); RED BLOOD CELL COUNT(AUTO) 4.73 MIL/uL (4.00-5.20); RED CELL DISTRIBUTION WIDTH 18.1 % (11.5-14.5); WHITE BLOOD COUNT (AUTO) 4.2 K/uL (4.5-11.0)
[2017-02-07 12:38] LABS: ALANINE AMINOTRANSFERASE 13 U/L (12-78); ALBUMIN 3.3 g/dL (3.4-5.0); AMYLASE 84 U/L (25-115); ASPARTATE AMINOTRANSFERASE 16 U/L (15-37); BILIRUBIN,TOTAL 0.2 mg/dL (0.1-1.0); CREATINE KINASE, TOTAL 50 U/L (26-192); TOTAL PROTEIN, SERUM 7.1 g/dL (6.4-8.2)
[2017-02-07 12:50] LABS: RBC MORPHOLOGY COMMENT ABNORMAL RBC MORPH
[2017-02-07] MEDS ORDERED: MIRTAZAPINE 15 MG TABLET PO SCH (21:00)
[2017-02-07] MEDS ORDERED: MIRT15 PO (21:02)
== END 2017-02-07 21:30 | disposition home or self-care (01) | DRG 392 ==
LOC: 5S 13:00 → 5N 20:30
PROVIDERS: ADMIT Hospitalist; ATTEND Hospitalist
DX: K21.9 Gastro-esophageal reflux disease without esophagitis (principal); J44.9 Chronic obstructive pulmonary disease, unspecified; F03.90 Unspecified dementia, unspecified severity, without behavioral disturbance, psychotic disturbance, mood disturbance, and anxiety; R07.89 Other chest pain; I10 Essential (primary) hypertension; F32.9 Major depressive disorder, single episode, unspecified; E78.5 Hyperlipidemia, unspecified; Z87.891 Personal history of nicotine dependence; Z98.84 Bariatric surgery status; Z88.0 Allergy status to penicillin; Z88.1 Allergy status to other antibiotic agents; Z88.2 Allergy status to sulfonamides; Z88.8 Allergy status to other drugs, medicaments and biological substances
CPT/HCPCS: 78452; 83735; 93005; 93017; 93306; A9500; J1644; J2405; J2785; J3475; J7050; J7060

== ENCOUNTER → 2017-02-06 | Outpatient (CLI) | payer MEDICARE, OTHER ==
[~2017-02-06] VITALS: Ht 170.2 cm; Wt 76.0 kg
[~2017-02-06] MED LIST changes: +0.9% SODIUM CHLORIDE 10 ML SYRINGE IVP PRN; +AMLO2.5T PO; +ASPIRIN 325 MG TABLET PO SCH; +ATOR10TA84 PO; -BENZ-26 PO; +BENZ-51 PO; +DILTIAZEM HCL CD 120 MG ER CAPSULE PO SCH; +LEVO250 PO; +METO25 PO; +MIRT15 PO; +NITROGLYCERIN 2% (1 GM=INCH) PACKET TP SCH; +PANTOPRAZOLE SODIUM 40 MG DR TABLET PO SCH; +TEMAZEPAM 15 MG CAPSULE PO SCH; +[UNRECOGNIZED DRUG - CODE] OU
[2017-02-06 09:57] VITALS: BP 129/96
== END | disposition home or self-care (01) ==
LOC: SRCNTR 09:42
PROVIDERS: ATTEND Hospitalist
DX: I11.0 Hypertensive heart disease with heart failure (principal); I50.32 Chronic diastolic (congestive) heart failure; I27.20 Pulmonary hypertension, unspecified; I35.1 Nonrheumatic aortic (valve) insufficiency; J44.9 Chronic obstructive pulmonary disease, unspecified; F03.90 Unspecified dementia, unspecified severity, without behavioral disturbance, psychotic disturbance, mood disturbance, and anxiety; E78.5 Hyperlipidemia, unspecified; E66.9 Obesity, unspecified; H61.20 Impacted cerumen, unspecified ear; K21.9 Gastro-esophageal reflux disease without esophagitis; D50.9 Iron deficiency anemia, unspecified; Z88.0 Allergy status to penicillin; Z88.2 Allergy status to sulfonamides; Z90.710 Acquired absence of both cervix and uterus; Z98.84 Bariatric surgery status; Z87.891 Personal history of nicotine dependence; Z86.718 Personal history of other venous thrombosis and embolism
CPT/HCPCS: G0463

== ENCOUNTER → 2017-02-16 | Outpatient (CLI) | payer MEDICARE, OTHER ==
[~2017-02-16] VITALS: Ht 170.2 cm; Wt 77.5 kg
[~2017-02-16] MED LIST changes: +AMLO2.5T PO; +ATOR10TA84 PO; +LEVO250 PO; +METO25 PO; +MIRT15 PO
[2017-02-16 16:02] VITALS: BP 144/72
== END | disposition home or self-care (01) ==
LOC: SRCNTR 13:03
PROVIDERS: ATTEND Hospitalist
DX: J44.9 Chronic obstructive pulmonary disease, unspecified (principal); I11.0 Hypertensive heart disease with heart failure; I50.32 Chronic diastolic (congestive) heart failure; F03.90 Unspecified dementia, unspecified severity, without behavioral disturbance, psychotic disturbance, mood disturbance, and anxiety; D50.9 Iron deficiency anemia, unspecified; E66.9 Obesity, unspecified; E78.5 Hyperlipidemia, unspecified; I27.20 Pulmonary hypertension, unspecified; I35.1 Nonrheumatic aortic (valve) insufficiency; Z86.718 Personal history of other venous thrombosis and embolism; Z87.891 Personal history of nicotine dependence; Z90.710 Acquired absence of both cervix and uterus; Z88.0 Allergy status to penicillin; Z88.2 Allergy status to sulfonamides; Z98.84 Bariatric surgery status
CPT/HCPCS: G0463

== ENCOUNTER → 2017-04-20 | Outpatient (CLI) | payer MEDICARE, OTHER ==
[~2017-04-20] VITALS: Ht 170.2 cm; Wt 79.7 kg
[2017-04-20 12:09] VITALS: BP 136/64
== END | disposition home or self-care (01) ==
LOC: SRCNTR 11:50
PROVIDERS: ATTEND Internal Medicine Critical Care Medicine
DX: J96.11 Chronic respiratory failure with hypoxia (principal); J44.1 Chronic obstructive pulmonary disease with (acute) exacerbation; G47.33 Obstructive sleep apnea (adult) (pediatric); I11.0 Hypertensive heart disease with heart failure; I50.32 Chronic diastolic (congestive) heart failure; F32.9 Major depressive disorder, single episode, unspecified; E66.9 Obesity, unspecified; E78.5 Hyperlipidemia, unspecified; I27.20 Pulmonary hypertension, unspecified; I35.1 Nonrheumatic aortic (valve) insufficiency; Z88.0 Allergy status to penicillin; Z88.2 Allergy status to sulfonamides; Z90.710 Acquired absence of both cervix and uterus; Z98.84 Bariatric surgery status; Z98.890 Other specified postprocedural states; Z98.49 Cataract extraction status, unspecified eye; Z87.891 Personal history of nicotine dependence
CPT/HCPCS: G0463

== ENCOUNTER 2017-04-22 11:09 | Inpatient (IN) | payer MEDICARE, OTHER ==
[~2017-04-22] VITALS: Ht 170.2 cm; Wt 78.9 kg
[~2017-04-22 11:09] MED LIST changes: -AMLO2.5T PO; -ATOR10TA84 PO; -LEVO250 PO; -METO25 PO
[2017-04-22 12:18] LABS: BASOPHILS % (AUTO) 0.4 % (0.0-2.0); EOSINOPHILS % (AUTO) 0.5 % (1.0-6.0); HEMOGLOBIN 10.8 g/dL (12.0-16.0); LYMPHOCYTES # (AUTO) 1.2 K/uL (1.0-4.8); LYMPHOCYTES % (AUTO) 32.6 % (22.0-44.0); MEAN CORPUSCULAR HEMOGLOBIN 22.5 pg (26.0-34.0); MEAN CORPUSCULAR HGB CONC 31.8 G/dL (31.0-37.0); MEAN CORPUSCULAR VOLUME 71 fL (80-100); MONOCYTES # (AUTO) 0.3 K/uL (0.1-1.0); NEUTROPHILS # (AUTO) 2.1 K/uL (1.8-7.7); NEUTROPHILS % (AUTO) 57.5 % (40.0-70.0); PLATELET COUNT (AUTO) 236 K/uL (150-450); RED BLOOD CELL COUNT(AUTO) 4.81 MIL/uL (4.00-5.20); RED CELL DISTRIBUTION WIDTH 17.7 % (11.5-14.5); WHITE BLOOD COUNT (AUTO) 3.6 K/uL (4.5-11.0)
[2017-04-22 12:29] LABS: ANION GAP 5 mmol/L (8-16); CALCIUM, TOTAL 9.7 mg/dL (8.8-10.5); CARBON DIOXIDE 32 mmol/L (22-29); CHLORIDE 106 mmol/L (98-107); CREATININE 0.95 mg/dL (0.60-1.30); GLOMERULAR FILTR. RATE CALC > 60 mL/min (>60); POTASSIUM 3.8 mmol/L (3.5-5.1); SODIUM SERUM 143 mmol/L (136-145); UREA NITROGEN, BLOOD 13 mg/dL (7-18)
[2017-04-22 12:34] LABS: ALANINE AMINOTRANSFERASE 15 U/L (12-78); ALBUMIN 3.5 g/dL (3.4-5.0); ASPARTATE AMINOTRANSFERASE 13 U/L (15-37); BILIRUBIN,TOTAL 0.3 mg/dL (0.1-1.0); TOTAL PROTEIN, SERUM 7.6 g/dL (6.4-8.2)
[2017-04-22 12:43] LABS: RBC MORPHOLOGY COMMENT ABNORMAL RBC MORPH
[2017-04-22] MEDS ORDERED: ACETAMINOPHEN 500 MG TABLET PO ONE (13:15)
[2017-04-22] MEDS ORDERED: ASPIRIN 81 MG CHEWABLE TABLET PO ONE (14:00)
[2017-04-22] MEDS ORDERED: NITROGLYCERIN 2% (1 GM=INCH) PACKET TP ONE (15:30)
[2017-04-22] MEDS ORDERED: OSELTAMIVIR PHOSPHATE 75 MG CAPSULE PO ONE (15:30)
[2017-04-22] MEDS ORDERED: NITROGLYCERIN 0.4 MG SUBLINGUAL TABLET #25 SL ONE (15:30)
[2017-04-22] MEDS ORDERED: LEVOFLOXACIN 750 MG/D5% WATER 150 ML IV ONE (15:30)
[2017-04-22 15:49] LABS: INFLUENZA TYPE B NEGATIVE FOR TYPE B (NEGATIVE)
[2017-04-22] MEDS ORDERED: 0.9% SODIUM CHLORIDE 10 ML SYRINGE IVP PRN (17:00)
[2017-04-22 17:17] LABS: APPEARANCE,URINE CLOUDY (CLEAR); GLUCOSE, URINE (UA) NEGATIVE (NEGATIVE); KETONES,URINE TRACE mg/dL (NEGATIVE); LEUKOCYTE ESTERASE ,URINE NEGATIVE (NEGATIVE); OCCULT BLOOD,URINE NEGATIVE (NEGATIVE); PH,URINE 5.5 (5.0-8.0); PROTEIN,URINE TRACE (NEGATIVE)
[2017-04-22 17:18] LABS: ADD UA MICROSCOPIC NO
[2017-04-22 21:34] VITALS: BP 167/76
[2017-04-22] MEDS: IPRATROPIUM BROMIDE 0.5 MG/2.5 ML NEB SOLUTION NEB SCH (21:37)
[2017-04-22] MEDS: ALBUTEROL SULFATE 2.5 MG/0.5 ML NEB SOLUTION NEB SCH (21:37)
[2017-04-22] MEDS: ACETAMINOPHEN 325 MG TABLET PO PRN (22:20)
[2017-04-22] MEDS ORDERED: INFLUENZA VIRUS VACCINE QVS 2017-18 (3YR+)/PF 60 MCG/0.5 ML SYRINGE IM ONE (23:30)
[2017-04-23] VITALS (7 sets, daily range): BP systolic 134–164; BP diastolic 56–92
[2017-04-23] MEDS ORDERED: *CLINICAL-LEVOFLOXACIN IVPB DOSING CLINICAL ONE ×2 (00:15)
[2017-04-23] MEDS: ALBUTEROL SULFATE 2.5 MG/0.5 ML NEB SOLUTION NEB SCH ×3 (02:35→13:46)
[2017-04-23] MEDS: IPRATROPIUM BROMIDE 0.5 MG/2.5 ML NEB SOLUTION NEB SCH ×3 (02:35→13:46)
[2017-04-23] MEDS: NITROGLYCERIN 2% (1 GM=INCH) PACKET TP SCH ×4 (05:45→23:08)
[2017-04-23] MEDS: ACETAMINOPHEN 325 MG TABLET PO PRN ×2 (05:45→10:42)
[2017-04-23 07:11] LABS: BASOPHILS % (AUTO) 0.4 % (0.0-2.0); EOSINOPHILS % (AUTO) 0.8 % (1.0-6.0); HEMATOCRIT 30.1 % (36-46); HEMOGLOBIN 9.7 g/dL (12.0-16.0); LYMPHOCYTES # (AUTO) 1.2 K/uL (1.0-4.8); LYMPHOCYTES % (AUTO) 35.8 % (22.0-44.0); MEAN CORPUSCULAR HEMOGLOBIN 22.7 pg (26.0-34.0); MEAN CORPUSCULAR HGB CONC 32.2 G/dL (31.0-37.0); MEAN CORPUSCULAR VOLUME 70 fL (80-100); MONOCYTES # (AUTO) 0.3 K/uL (0.1-1.0); MONOCYTES % (AUTO) 10.1 % (2.0-9.0); NEUTROPHILS # (AUTO) 1.7 K/uL (1.8-7.7); NEUTROPHILS % (AUTO) 52.9 % (40.0-70.0); PLATELET COUNT (AUTO) 220 K/uL (150-450); RED BLOOD CELL COUNT(AUTO) 4.28 MIL/uL (4.00-5.20); RED CELL DISTRIBUTION WIDTH 17.1 % (11.5-14.5); WHITE BLOOD COUNT (AUTO) 3.2 K/uL (4.5-11.0)
[2017-04-23 07:40] LABS: ALANINE AMINOTRANSFERASE 12 U/L (12-78); ALBUMIN 3.1 g/dL (3.4-5.0); ANION GAP 9 mmol/L (8-16); ASPARTATE AMINOTRANSFERASE 13 U/L (15-37); BILIRUBIN,TOTAL 0.3 mg/dL (0.1-1.0); CALCIUM, TOTAL 9.2 mg/dL (8.8-10.5); CARBON DIOXIDE 28 mmol/L (22-29); CHLORIDE 105 mmol/L (98-107); CREATININE 1.02 mg/dL (0.60-1.30); GLOMERULAR FILTR. RATE CALC > 60 mL/min (>60); SODIUM SERUM 142 mmol/L (136-145); TOTAL PROTEIN, SERUM 6.6 g/dL (6.4-8.2); UREA NITROGEN, BLOOD 16 mg/dL (7-18)
[2017-04-23 10:07] LABS: RBC MORPHOLOGY COMMENT ABNORMAL RBC MORPH
[2017-04-23] MEDS ORDERED: POTASSIUM CHL 10 MEQ/WATER 50 ML IV PRN (13:00)
[2017-04-23] MEDS ORDERED: POTASSIUM CHLORIDE 20 MEQ ER TABLET PO PRN (13:00)
[2017-04-23] MEDS: METOPROLOL TARTRATE 25 MG TABLET PO SCH ×2 (13:45→19:48)
[2017-04-23] MEDS: ASPIRIN 81 MG EC TABLET PO SCH (13:45)
[2017-04-23] MEDS: ATORVASTATIN CALCIUM 10 MG TABLET PO SCH (13:45)
[2017-04-23] MEDS: POTASSIUM CHLORIDE 20 MEQ ER TABLET PO PRN (15:21)
[2017-04-23] MEDS ORDERED: LEVOFLOXACIN 750 MG/D5% WATER 150 ML IV SCH (16:00)
[2017-04-23] MEDS ORDERED: SODIUM CHLORIDE 0.9% 100 ML ONE (17:55)
[2017-04-24] MEDS: POTASSIUM CHLORIDE 20 MEQ ER TABLET PO PRN (02:02)
[2017-04-24 04:14] VITALS: BP 160/74
[2017-04-24] MEDS: NITROGLYCERIN 2% (1 GM=INCH) PACKET TP SCH (05:03)
[2017-04-24 06:04] LABS: BASOPHILS # (AUTO) 0.02 K/uL (0.00-0.20); BASOPHILS % (AUTO) 0.5 % (0.0-2.0); EOSINOPHILS # (AUTO) 0.03 K/uL (0.00-0.70); EOSINOPHILS % (AUTO) 0.75 % (1.0-6.0); HEMATOCRIT 31.9 % (36-46); HEMOGLOBIN 10.1 g/dL (12.0-16.0); LYMPHOCYTES # (AUTO) 1.1 K/uL (1.0-4.8); LYMPHOCYTES % (AUTO) 29.6 % (22.0-44.0); MEAN CORPUSCULAR HEMOGLOBIN 22.7 pg (26.0-34.0); MEAN CORPUSCULAR HGB CONC 31.7 G/dL (31.0-37.0); MEAN CORPUSCULAR VOLUME 72 fL (80-100); MONOCYTES # (AUTO) 0.4 K/uL (0.1-1.0); NEUTROPHILS # (AUTO) 2.1 K/uL (1.8-7.7); NEUTROPHILS % (AUTO) 58.2 % (40.0-70.0); PLATELET COUNT (AUTO) 224 K/uL (150-450); RED BLOOD CELL COUNT(AUTO) 4.45 MIL/uL (4.00-5.20); RED CELL DISTRIBUTION WIDTH 17.2 % (11.5-14.5); WHITE BLOOD COUNT (AUTO) 3.6 K/uL (4.5-11.0)
[2017-04-24 06:30] LABS: ALANINE AMINOTRANSFERASE 13 U/L (12-78); ALBUMIN 3.2 g/dL (3.4-5.0); ANION GAP 5 mmol/L (8-16); ASPARTATE AMINOTRANSFERASE 12 U/L (15-37); BILIRUBIN,TOTAL 0.2 mg/dL (0.1-1.0); CALCIUM, TOTAL 9.4 mg/dL (8.8-10.5); CARBON DIOXIDE 29 mmol/L (22-29); CHLORIDE 106 mmol/L (98-107); CREATININE 0.91 mg/dL (0.60-1.30); GLOMERULAR FILTR. RATE CALC > 60 mL/min (>60); SODIUM SERUM 140 mmol/L (136-145); TOTAL PROTEIN, SERUM 7.1 g/dL (6.4-8.2); UREA NITROGEN, BLOOD 13 mg/dL (7-18)
[2017-04-24 07:24] VITALS: BP 152/65
[2017-04-24 09:02] LABS: THYROID STIMULATING HORMONE 1.84 uIU/mL (0.36-3.74)
[2017-04-24] MEDS: METOPROLOL TARTRATE 25 MG TABLET PO SCH (09:40)
[2017-04-24] MEDS: ATORVASTATIN CALCIUM 10 MG TABLET PO SCH (09:40)
[2017-04-24] MEDS: ASPIRIN 81 MG EC TABLET PO SCH (09:40)
[2017-04-24 10:55] LABS: RBC MORPHOLOGY COMMENT ABNORMAL RBC MORPH
[2017-04-24 10:59] VITALS: BP 156/72
[2017-04-24] MEDS ORDERED: AmLODIPine BESYLATE 2.5 MG TABLET PO SCH (11:30)
[2017-04-24] MEDS ORDERED: ATOR10TA84 PO (12:48)
[2017-04-24] MEDS ORDERED: AMLO2.5T PO (12:49)
[2017-04-24] MEDS ORDERED: METO25 PO (12:51)
[2017-04-24] MEDS ORDERED: LEVO250 PO (12:52)
[2017-04-24] MEDS ORDERED: METOPROLOL TARTRATE 25 MG TABLET PO SCH (21:00)
== END 2017-04-24 13:15 | disposition home or self-care (01) | DRG 191 ==
LOC: EMS 11:14 → 5N 18:14
PROVIDERS: ADMIT Internal Medicine; ATTEND Internal Medicine
DX: J44.0 Chronic obstructive pulmonary disease with (acute) lower respiratory infection (principal); I50.30 Unspecified diastolic (congestive) heart failure; I11.0 Hypertensive heart disease with heart failure; I45.10 Unspecified right bundle-branch block; I20.9 Angina pectoris, unspecified; J20.9 Acute bronchitis, unspecified; M54.5 Low back pain; F32.9 Major depressive disorder, single episode, unspecified; F17.210 Nicotine dependence, cigarettes, uncomplicated; E78.00 Pure hypercholesterolemia, unspecified; K21.9 Gastro-esophageal reflux disease without esophagitis; G89.29 Other chronic pain; E87.6 Hypokalemia; Z28.21 Immunization not carried out because of patient refusal; Z98.84 Bariatric surgery status; Z90.710 Acquired absence of both cervix and uterus; Z79.82 Long term (current) use of aspirin; Z88.0 Allergy status to penicillin; Z88.2 Allergy status to sulfonamides; Z88.8 Allergy status to other drugs, medicaments and biological substances; Z79.899 Other long term (current) drug therapy
CPT/HCPCS: 71250; 82533; 83735; 84132; 84443; 87040; 87804; 93005; 93306; 94640; 96365; 99285; J1956; J7050

== ENCOUNTER → 2017-06-21 | Outpatient (CLI) | payer MEDICARE, OTHER ==
[~2017-06-21] VITALS: Ht 170.2 cm; Wt 78.0 kg
[~2017-06-21] MED LIST changes: +AMLO2.5T PO; +ATOR10TA84 PO; +LEVO250 PO; +METO25 PO
[2017-06-21 11:24] VITALS: BP 153/84
== END | disposition home or self-care (01) ==
LOC: SRCNTR 11:19
PROVIDERS: ATTEND Internal Medicine Critical Care Medicine
DX: G47.33 Obstructive sleep apnea (adult) (pediatric) (principal); J44.1 Chronic obstructive pulmonary disease with (acute) exacerbation; I11.0 Hypertensive heart disease with heart failure; I50.32 Chronic diastolic (congestive) heart failure; J96.11 Chronic respiratory failure with hypoxia; F32.9 Major depressive disorder, single episode, unspecified; E78.5 Hyperlipidemia, unspecified; E66.9 Obesity, unspecified; I27.20 Pulmonary hypertension, unspecified; I35.1 Nonrheumatic aortic (valve) insufficiency; Z88.0 Allergy status to penicillin; Z88.2 Allergy status to sulfonamides; Z90.710 Acquired absence of both cervix and uterus; Z98.84 Bariatric surgery status
CPT/HCPCS: G0463

== ENCOUNTER → 2017-08-22 | Outpatient (CLI) | payer MEDICARE, OTHER | END | disposition home or self-care (01) | LOC: SRCNTR 13:04 | PROVIDERS: ATTEND Internal Medicine Critical Care Medicine | DX: J44.1 Chronic obstructive pulmonary disease with (acute) exacerbation (principal); J96.10 Chronic respiratory failure, unspecified whether with hypoxia or hypercapnia; G47.33 Obstructive sleep apnea (adult) (pediatric); F32.9 Major depressive disorder, single episode, unspecified; I11.0 Hypertensive heart disease with heart failure; I50.32 Chronic diastolic (congestive) heart failure; I27.20 Pulmonary hypertension, unspecified; E78.5 Hyperlipidemia, unspecified; E66.9 Obesity, unspecified; Z90.710 Acquired absence of both cervix and uterus; Z88.2 Allergy status to sulfonamides; Z88.0 Allergy status to penicillin; Z98.84 Bariatric surgery status | CPT/HCPCS: G0463 ==

== ENCOUNTER → 2017-08-28 | Outpatient (CLI) | payer MEDICARE, OTHER ==
[~2017-08-28] VITALS: Ht 170.2 cm; Wt 79.0 kg
[2017-08-28 10:13] VITALS: BP 180/90
== END | disposition home or self-care (01) ==
LOC: SRCNTR 10:05
PROVIDERS: ATTEND Hospitalist
DX: I10 Essential (primary) hypertension (principal)
CPT/HCPCS: G0463

== ENCOUNTER 2017-10-13 09:42 | Inpatient (IN) | payer MEDICARE, OTHER ==
[~2017-10-13] VITALS: Ht 170.2 cm; Wt 79.7 kg
[~2017-10-13 09:42] MED LIST changes: -LEVO250 PO
[2017-10-13 10:45] LABS: BASOPHILS % (AUTO) 0.6 % (0.0-2.0); EOSINOPHILS % (AUTO) 0.4 % (1.0-6.0); HEMATOCRIT 34.2 % (36-46); MEAN CORPUSCULAR HEMOGLOBIN 22.3 pg (26.0-34.0); MEAN CORPUSCULAR HGB CONC 32.1 G/dL (31.0-37.0); MEAN CORPUSCULAR VOLUME 70 fL (80-100); MONOCYTES # (AUTO) 0.3 K/uL (0.1-1.0); MONOCYTES % (AUTO) 9.5 % (2.0-9.0); NEUTROPHILS % (AUTO) 58.5 % (40.0-70.0); PLATELET COUNT (AUTO) 213 K/uL (150-450); RED BLOOD CELL COUNT(AUTO) 4.92 MIL/uL (4.00-5.20); RED CELL DISTRIBUTION WIDTH 18.1 % (11.5-14.5)
[2017-10-13] MEDS ORDERED: ASPIRIN 81 MG CHEWABLE TABLET PO ONE (10:45)
[2017-10-13] MEDS ORDERED: NITROGLYCERIN 2% (1 GM=INCH) PACKET TP ONE (10:45)
[2017-10-13 10:51] LABS: ANION GAP 4 mmol/L (8-16); CALCIUM, TOTAL 9.4 mg/dL (8.8-10.5); CARBON DIOXIDE 31 mmol/L (22-29); CHLORIDE 108 mmol/L (98-107); CREATININE 0.92 mg/dL (0.60-1.30); GLOMERULAR FILTR. RATE CALC > 60 mL/min (>60); GLUCOSE,RANDOM 115 mg/dL (70-110); POTASSIUM 3.7 mmol/L (3.5-5.1); SODIUM SERUM 143 mmol/L (136-145); UREA NITROGEN, BLOOD 15 mg/dL (7-18)
[2017-10-13 10:53] LABS: PROTHROMBIN TIME 10.1 SEC (9.4-11.6)
[2017-10-13 10:57] LABS: ALANINE AMINOTRANSFERASE 39 U/L (12-78); ALBUMIN 3.6 g/dL (3.4-5.0); ALKALINE PHOSPHATASE 141 U/L (46-116); ASPARTATE AMINOTRANSFERASE 18 U/L (15-37); BILIRUBIN,TOTAL 0.2 mg/dL (0.1-1.0); CREATINE KINASE, TOTAL 55 U/L (26-192); TOTAL PROTEIN, SERUM 7.5 g/dL (6.4-8.2)
[2017-10-13 11:14] LABS: APPEARANCE,URINE CLEAR (CLEAR); BILIRUBIN,URINE NEGATIVE (NEGATIVE); GLUCOSE, URINE (UA) NEGATIVE (NEGATIVE); KETONES,URINE NEGATIVE (NEGATIVE); LEUKOCYTE ESTERASE ,URINE NEGATIVE (NEGATIVE); NITRATE,URINE NEGATIVE (NEGATIVE); OCCULT BLOOD,URINE NEGATIVE (NEGATIVE); PH,URINE 6.5 (5.0-8.0); PROTEIN,URINE NEGATIVE (NEGATIVE)
[2017-10-13 11:15] LABS: B-TYPE NATRIURETIC PEPTIDE 101 pg/mL (0-100)
[2017-10-13] MEDS ORDERED: ACETAMINOPHEN 325 MG TABLET PO PRN (12:30)
[2017-10-13] MEDS ORDERED: 0.9% SODIUM CHLORIDE 10 ML SYRINGE IVP PRN ×2 (12:30→15:45)
[2017-10-13] MEDS ORDERED: PANT40TA25 PO (15:25)
[2017-10-13] MEDS ORDERED: PERCT PO (15:25)
[2017-10-13] MEDS ORDERED: ALPR0.255 PO (15:25)
[2017-10-13 15:36] VITALS: BP 177/83
[2017-10-13] MEDS ORDERED: ONDANSETRON HCL 4 MG/2 ML VIAL IVP PRN (15:45)
[2017-10-13] MEDS ORDERED: ALBUTEROL SULFATE 2.5 MG/0.5 ML NEB SOLUTION NEB PRN (15:45)
[2017-10-13] MEDS ORDERED: IPRATROPIUM BROMIDE 0.5 MG/2.5 ML NEB SOLUTION NEB PRN (15:45)
[2017-10-13] MEDS ORDERED: ALBUTEROL SULFATE 2.5 MG/0.5 ML NEB SOLUTION NEB SCH (15:45)
[2017-10-13] MEDS ORDERED: IPRATROPIUM BROMIDE 0.5 MG/2.5 ML NEB SOLUTION NEB SCH (15:45)
[2017-10-13] MEDS: PANTOPRAZOLE SODIUM 40 MG/VIAL IVP SCH (18:19)
[2017-10-13 19:52] VITALS: BP 153/84
[2017-10-13] MEDS: IPRATROPIUM BROMIDE 0.5 MG/2.5 ML NEB SOLUTION NEB SCH (20:28)
[2017-10-13] MEDS: ALBUTEROL SULFATE 2.5 MG/0.5 ML NEB SOLUTION NEB SCH (20:29)
[2017-10-13 23:45] VITALS: BP 145/76
[2017-10-13] MEDS: ZOLPIDEM TARTRATE 5 MG TABLET PO PRN (23:48)
[2017-10-13] MEDS: ACETAMINOPHEN 325 MG TABLET PO PRN (23:49)
[2017-10-14] MEDS: ALBUTEROL SULFATE 2.5 MG/0.5 ML NEB SOLUTION NEB SCH ×4 (04:19→19:56)
[2017-10-14] MEDS: IPRATROPIUM BROMIDE 0.5 MG/2.5 ML NEB SOLUTION NEB SCH ×4 (04:19→19:56)
[2017-10-14 04:27] VITALS: BP 159/78
[2017-10-14 06:09] LABS: BASOPHILS % (AUTO) 0.4 % (0.0-2.0); EOSINOPHILS % (AUTO) 0.6 % (1.0-6.0); HEMATOCRIT 31.6 % (36-46); HEMOGLOBIN 10.2 g/dL (12.0-16.0); LYMPHOCYTES # (AUTO) 1.2 K/uL (1.0-4.8); MEAN CORPUSCULAR HEMOGLOBIN 22.5 pg (26.0-34.0); MEAN CORPUSCULAR HGB CONC 32.3 G/dL (31.0-37.0); MEAN CORPUSCULAR VOLUME 70 fL (80-100); MONOCYTES # (AUTO) 0.4 K/uL (0.1-1.0); MONOCYTES % (AUTO) 10.9 % (2.0-9.0); NEUTROPHILS # (AUTO) 1.9 K/uL (1.8-7.7); NEUTROPHILS % (AUTO) 54.1 % (40.0-70.0); PLATELET COUNT (AUTO) 198 K/uL (150-450); RED BLOOD CELL COUNT(AUTO) 4.54 MIL/uL (4.00-5.20); RED CELL DISTRIBUTION WIDTH 17.8 % (11.5-14.5)
[2017-10-14 06:22] LABS: ALANINE AMINOTRANSFERASE 29 U/L (12-78); ALBUMIN 3.1 g/dL (3.4-5.0); ALKALINE PHOSPHATASE 119 U/L (46-116); ANION GAP 7 mmol/L (8-16); ASPARTATE AMINOTRANSFERASE 14 U/L (15-37); BILIRUBIN,TOTAL 0.3 mg/dL (0.1-1.0); CALCIUM, TOTAL 8.8 mg/dL (8.8-10.5); CARBON DIOXIDE 31 mmol/L (22-29); CHLORIDE 107 mmol/L (98-107); CREATINE KINASE, TOTAL 50 U/L (26-192); CREATININE 0.92 mg/dL (0.60-1.30); GLUCOSE,RANDOM 111 mg/dL (70-110); POTASSIUM 3.4 mmol/L (3.5-5.1); SODIUM SERUM 145 mmol/L (136-145); TOTAL PROTEIN, SERUM 6.7 g/dL (6.4-8.2); UREA NITROGEN, BLOOD 14 mg/dL (7-18)
[2017-10-14 06:54] LABS: GLOMERULAR FILTR. RATE CALC > 60 mL/min (>60)
[2017-10-14 07:59] VITALS: BP 160/76
[2017-10-14] MEDS: PANTOPRAZOLE SODIUM 40 MG/VIAL IVP SCH (08:25)
[2017-10-14] MEDS: ACETAMINOPHEN 325 MG TABLET PO PRN ×2 (10:55→21:02)
[2017-10-14 11:20] VITALS: BP 159/76
[2017-10-14] MEDS ORDERED: POTASSIUM CHLORIDE 20 MEQ ER TABLET PO PRN ×3 (15:00→15:15)
[2017-10-14] MEDS ORDERED: POTASSIUM CHL 10 MEQ/WATER 50 ML IV PRN ×2 (15:00→15:15)
[2017-10-14 16:13] VITALS: BP 151/81
[2017-10-14 19:23] LABS: MAGNESIUM 1.9 mg/dL (1.80-2.40)
[2017-10-14 19:57] VITALS: BP 122/67
[2017-10-14] MEDS: ZOLPIDEM TARTRATE 5 MG TABLET PO PRN (21:02)
[2017-10-14 23:52] VITALS: BP 147/62
[2017-10-15] MEDS: ALBUTEROL SULFATE 2.5 MG/0.5 ML NEB SOLUTION NEB SCH ×4 (02:33→20:01)
[2017-10-15] MEDS: IPRATROPIUM BROMIDE 0.5 MG/2.5 ML NEB SOLUTION NEB SCH ×4 (02:33→20:01)
[2017-10-15 04:52] VITALS: BP 159/92
[2017-10-15] MEDS: PANTOPRAZOLE SODIUM 40 MG/VIAL IVP SCH (08:08)
[2017-10-15 08:33] VITALS: BP 164/81
[2017-10-15 12:20] VITALS: BP 185/91
[2017-10-15] MEDS: METOPROLOL SUCCINATE 25 MG ER TABLET PO SCH (13:09)
[2017-10-15] MEDS: ROFLUMILAST 500 MCG TABLET PO SCH (13:10)
[2017-10-15] MEDS: AmLODIPine BESYLATE 2.5 MG TABLET PO SCH (13:10)
[2017-10-15 14:09] VITALS: BP 169/92
[2017-10-15 15:53] VITALS: BP 157/75
[2017-10-15 20:00] VITALS: BP 152/87
[2017-10-15] MEDS: ACETAMINOPHEN 325 MG TABLET PO PRN (20:57)
[2017-10-15] MEDS: ZOLPIDEM TARTRATE 5 MG TABLET PO PRN (20:58)
[2017-10-15] MEDS ORDERED: ATORVASTATIN CALCIUM 20 MG TABLET PO SCH (21:00)
[2017-10-16] MEDS: IPRATROPIUM BROMIDE 0.5 MG/2.5 ML NEB SOLUTION NEB SCH ×3 (02:00→14:00)
[2017-10-16] MEDS: ALBUTEROL SULFATE 2.5 MG/0.5 ML NEB SOLUTION NEB SCH ×3 (02:00→14:00)
[2017-10-16 04:31] VITALS: BP 147/66
[2017-10-16 05:30] LABS: GLUCOMETER DEV NAME(LOC) 5S 1M; GLUCOSE,POINT OF CARE 100 MG/DL (70-110)
[2017-10-16 06:15] LABS: BASOPHILS % (AUTO) 0.4 % (0.0-2.0); EOSINOPHILS % (AUTO) 1.2 % (1.0-6.0); HEMATOCRIT 33.1 % (36-46); HEMOGLOBIN 10.7 g/dL (12.0-16.0); LYMPHOCYTES # (AUTO) 1.1 K/uL (1.0-4.8); LYMPHOCYTES % (AUTO) 32.1 % (22.0-44.0); MEAN CORPUSCULAR HEMOGLOBIN 22.5 pg (26.0-34.0); MEAN CORPUSCULAR HGB CONC 32.4 G/dL (31.0-37.0); MEAN CORPUSCULAR VOLUME 69 fL (80-100); MONOCYTES # (AUTO) 0.4 K/uL (0.1-1.0); MONOCYTES % (AUTO) 11.4 % (2.0-9.0); NEUTROPHILS # (AUTO) 1.9 K/uL (1.8-7.7); NEUTROPHILS % (AUTO) 54.9 % (40.0-70.0); PLATELET COUNT (AUTO) 206 K/uL (150-450); RED BLOOD CELL COUNT(AUTO) 4.77 MIL/uL (4.00-5.20); RED CELL DISTRIBUTION WIDTH 17.8 % (11.5-14.5)
[2017-10-16] MEDS ORDERED: DOBUTamine HCL/D5W 500 MG/250 ML IV BAG [STRESS LAB ONLY] IV ONE ×2 (06:18→11:57)
[2017-10-16 06:19] LABS: ANION GAP 7 mmol/L (8-16); CALCIUM, TOTAL 8.8 mg/dL (8.8-10.5); CARBON DIOXIDE 30 mmol/L (22-29); CHLORIDE 106 mmol/L (98-107); CREATININE 0.99 mg/dL (0.60-1.30); GLUCOSE,RANDOM 99 mg/dL (70-110); POTASSIUM 3.9 mmol/L (3.5-5.1); SODIUM SERUM 143 mmol/L (136-145); UREA NITROGEN, BLOOD 19 mg/dL (7-18)
[2017-10-16 06:44] LABS: GLOMERULAR FILTR. RATE CALC > 60 mL/min (>60)
[2017-10-16 07:17] VITALS: BP 156/83
[2017-10-16] MEDS: AmLODIPine BESYLATE 2.5 MG TABLET PO SCH (08:34)
[2017-10-16] MEDS: ROFLUMILAST 500 MCG TABLET PO SCH (08:34)
[2017-10-16] MEDS: PANTOPRAZOLE SODIUM 40 MG/VIAL IVP SCH (08:34)
[2017-10-16 10:49] VITALS: BP 153/72
[2017-10-16 11:25] VITALS: BP 136/85
[2017-10-16 12:23] VITALS: BP 163/83
[2017-10-16] MEDS: METOPROLOL SUCCINATE 25 MG ER TABLET PO SCH (13:03)
[2017-10-16 13:04] VITALS: BP 125/68
== END 2017-10-16 15:00 | disposition home or self-care (01) | DRG 316 ==
LOC: EMS 09:42 → 5S 14:05
PROVIDERS: ADMIT Internal Medicine; ATTEND Internal Medicine
DX: I31.9 Disease of pericardium, unspecified (principal); J44.9 Chronic obstructive pulmonary disease, unspecified; I11.9 Hypertensive heart disease without heart failure; F32.9 Major depressive disorder, single episode, unspecified; F45.9 Somatoform disorder, unspecified; I20.9 Angina pectoris, unspecified; E78.5 Hyperlipidemia, unspecified; F03.90 Unspecified dementia, unspecified severity, without behavioral disturbance, psychotic disturbance, mood disturbance, and anxiety; F17.210 Nicotine dependence, cigarettes, uncomplicated; F41.1 Generalized anxiety disorder; Z98.84 Bariatric surgery status; Z90.710 Acquired absence of both cervix and uterus; Z88.0 Allergy status to penicillin; Z88.2 Allergy status to sulfonamides; Z88.8 Allergy status to other drugs, medicaments and biological substances; Z79.899 Other long term (current) drug therapy
CPT/HCPCS: 71260; 83735; 84132; 93005; 93017; 93306; 93350; 94640; 99285; C9113; J1250

== ENCOUNTER → 2017-12-19 | Outpatient (CLI) | payer MEDICARE, OTHER ==
[~2017-12-19] VITALS: Ht 170.2 cm; Wt 78.2 kg
[~2017-12-19] MED LIST changes: -BENZ-51 PO; -DILT90 PO; -MEMA5 PO; -MIRT15 PO; -OXYB5 PO
[2017-12-19 13:23] VITALS: BP 140/61
== END | disposition home or self-care (01) ==
LOC: SRCNTR 13:18
PROVIDERS: ATTEND Internal Medicine Critical Care Medicine
DX: J44.1 Chronic obstructive pulmonary disease with (acute) exacerbation (principal); J96.11 Chronic respiratory failure with hypoxia; F32.9 Major depressive disorder, single episode, unspecified; I11.0 Hypertensive heart disease with heart failure; I50.9 Heart failure, unspecified; E78.5 Hyperlipidemia, unspecified; E66.9 Obesity, unspecified; H91.92 Unspecified hearing loss, left ear; Z86.718 Personal history of other venous thrombosis and embolism
CPT/HCPCS: G0463

== ENCOUNTER 2017-12-28 10:30 | Inpatient (IN) | payer MEDICARE, OTHER ==
[~2017-12-28] VITALS: Ht 170.2 cm; Wt 76.5 kg
[~2017-12-28 10:30] MED LIST changes: -AMLO2.5T PO; +AMLO2.5T3 PO
[2017-12-28 11:52] LABS: BASOPHILS % (AUTO) 0.5 % (0.0-2.0); EOSINOPHILS % (AUTO) 0.7 % (1.0-6.0); HEMATOCRIT 33.2 % (36-46); HEMOGLOBIN 10.5 g/dL (12.0-16.0); LYMPHOCYTES # (AUTO) 0.9 K/uL (1.0-4.8); LYMPHOCYTES % (AUTO) 25.9 % (22.0-44.0); MEAN CORPUSCULAR HEMOGLOBIN 22.4 pg (26.0-34.0); MEAN CORPUSCULAR HGB CONC 31.5 G/dL (31.0-37.0); MEAN CORPUSCULAR VOLUME 71 fL (80-100); MONOCYTES # (AUTO) 0.4 K/uL (0.1-1.0); MONOCYTES % (AUTO) 12.3 % (2.0-9.0); NEUTROPHILS % (AUTO) 60.6 % (40.0-70.0); PLATELET COUNT (AUTO) 176 K/uL (150-450); RED BLOOD CELL COUNT(AUTO) 4.66 MIL/uL (4.00-5.20); RED CELL DISTRIBUTION WIDTH 17.2 % (11.5-14.5)
[2017-12-28 12:16] LABS: ANION GAP 8 mmol/L (8-16); CALCIUM, TOTAL 9.4 mg/dL (8.8-10.5); CARBON DIOXIDE 29 mmol/L (22-29); CHLORIDE 104 mmol/L (98-107); CREATININE 0.85 mg/dL (0.60-1.30); GLOMERULAR FILTR. RATE CALC > 60 mL/min (>60); GLUCOSE,RANDOM 99 mg/dL (70-110); POTASSIUM 3.8 mmol/L (3.5-5.1); SODIUM SERUM 141 mmol/L (136-145); UREA NITROGEN, BLOOD 18 mg/dL (7-18)
[2017-12-28 12:26] LABS: ALANINE AMINOTRANSFERASE 14 U/L (12-78); ALBUMIN 3.2 g/dL (3.4-5.0); ALKALINE PHOSPHATASE 103 U/L (46-116); ASPARTATE AMINOTRANSFERASE 15 U/L (15-37); BILIRUBIN,TOTAL 0.3 mg/dL (0.1-1.0)
[2017-12-28 13:20] LABS: AMPHET/METH SCREEN,URINE NEGATIVE (NEGATIVE); BARBITURATE SCREEN, URINE NEGATIVE (NEGATIVE); BENZODIAZEPINES SCREEN,URINE POSITIVE (NEGATIVE); CANNABINOID SCREEN,URINE NEGATIVE (NEGATIVE); COCAINE SCREEN,URINE NEGATIVE (NEGATIVE); METHADONE SCREEN, URINE NEGATIVE (NEGATIVE); OPIATE SCREEN,URINE POSITIVE (NEGATIVE)
[2017-12-28 13:24] LABS: PHENCYCLIDINE SCREEN,URINE NEGATIVE (NEGATIVE)
[2017-12-28 13:27] LABS: APPEARANCE,URINE CLEAR (CLEAR); BILIRUBIN,URINE NEGATIVE (NEGATIVE); GLUCOSE, URINE (UA) NEGATIVE (NEGATIVE); KETONES,URINE NEGATIVE (NEGATIVE); LEUKOCYTE ESTERASE ,URINE NEGATIVE (NEGATIVE); NITRATE,URINE NEGATIVE (NEGATIVE); OCCULT BLOOD,URINE NEGATIVE (NEGATIVE); PH,URINE 5.5 (5.0-8.0); PROTEIN,URINE NEGATIVE (NEGATIVE)
[2017-12-28 13:40] LABS: RBC,URINE None Seen /HPF (0-2)
[2017-12-28 13:41] LABS: BACTERIA,URINE Few /HPF (None Seen); SQUAMOUS EPITHELIAL CELL,UR Few /LPF (None Seen); WBC,URINE 0-2 /HPF (0-5)
[2017-12-28] MEDS ORDERED: HALOPERIDOL 5 MG TABLET PO PRN (14:00)
[2017-12-28] MEDS ORDERED: LORazepam 2 MG TABLET PO PRN (14:00)
[2017-12-28 16:25] VITALS: BP 156/73
[2017-12-28] MEDS ORDERED: ONDANSETRON HCL 4 MG TABLET PO PRN (16:30)
[2017-12-28] MEDS ORDERED: DOCUSATE SODIUM 100 MG CAPSULE PO PRN (16:30)
[2017-12-28] MEDS ORDERED: LOPERAMIDE HCL 2 MG CAPSULE PO PRN (16:30)
[2017-12-28] MEDS ORDERED: MAG HYDROX/AL HYDROX/SIMETH ES 30 ML SUSPENSION UDCUP PO PRN (16:30)
[2017-12-28] MEDS ORDERED: CloNIDine HCL 0.1 MG TABLET PO PRN (16:30)
[2017-12-28] MEDS ORDERED: PETROLATUM,WHITE 71 GM JELLY TP PRN (16:30)
[2017-12-28] MEDS ORDERED: NICOTINE 14 MG/24 HOUR PATCH TD PRN (16:30)
[2017-12-28] MEDS ORDERED: MAGNESIUM HYDROXIDE SUSPENSION 30 ML UDCUP PO PRN (16:30)
[2017-12-28] MEDS ORDERED: IBUPROFEN 400 MG TABLET PO PRN (16:30)
[2017-12-28] MEDS ORDERED: ACETAMINOPHEN 325 MG TABLET PO PRN (16:30)
[2017-12-28] MEDS ORDERED: GuaiFENesin/D-METHORPHAN [SUGAR-FREE] 200-20MG/10 ML SYRUP UDCUP PO PRN (16:30)
[2017-12-28] MEDS ORDERED: ALBUTEROL SULFATE HFA 90 MCG/PUFF 8 GM INHALER IH PRN (16:30)
[2017-12-28] MEDS: CYCLOPENTOLATE HCL OU SCH (17:52)
[2017-12-28] MEDS: ZOLPIDEM TARTRATE 10 MG TABLET PO PRN (22:00)
[2017-12-29 07:21] LABS: BASOPHILS % (AUTO) 0.6 % (0.0-2.0); EOSINOPHILS % (AUTO) 1.1 % (1.0-6.0); HEMATOCRIT 33.5 % (36-46); HEMOGLOBIN 10.7 g/dL (12.0-16.0); LYMPHOCYTES # (AUTO) 1.3 K/uL (1.0-4.8); MEAN CORPUSCULAR HEMOGLOBIN 22.4 pg (26.0-34.0); MEAN CORPUSCULAR VOLUME 70 fL (80-100); MONOCYTES # (AUTO) 0.3 K/uL (0.1-1.0); MONOCYTES % (AUTO) 9.9 % (2.0-9.0); NEUTROPHILS # (AUTO) 1.8 K/uL (1.8-7.7); NEUTROPHILS % (AUTO) 51.4 % (40.0-70.0); PLATELET COUNT (AUTO) 183 K/uL (150-450); RED BLOOD CELL COUNT(AUTO) 4.79 MIL/uL (4.00-5.20); RED CELL DISTRIBUTION WIDTH 17.4 % (11.5-14.5)
[2017-12-29 08:05] VITALS: BP 151/83
[2017-12-29 08:21] LABS: ALANINE AMINOTRANSFERASE 14 U/L (12-78); ALBUMIN 3.2 g/dL (3.4-5.0); ALKALINE PHOSPHATASE 105 U/L (46-116); ANION GAP 7 mmol/L (8-16); ASPARTATE AMINOTRANSFERASE 17 U/L (15-37); BILIRUBIN,TOTAL 0.3 mg/dL (0.1-1.0); CALCIUM, TOTAL 9.4 mg/dL (8.8-10.5); CARBON DIOXIDE 29 mmol/L (22-29); CHLORIDE 105 mmol/L (98-107); CHOL/HDL RATIO 5.8 (3.9-5.7); CHOLESTEROL 315 mg/dL (131-200); CREATININE 0.85 mg/dL (0.60-1.30); GLOMERULAR FILTR. RATE CALC > 60 mL/min (>60); GLUCOSE,RANDOM 98 mg/dL (70-110); HDL CHOLESTEROL 54 mg/dL (40-60); LDL CHOL (CALC.) 227 mg/dL (0-130); POTASSIUM 3.6 mmol/L (3.5-5.1); SODIUM SERUM 141 mmol/L (136-145); THYROID STIMULATING HORMONE 2.13 uIU/mL (0.36-3.74); TRIGLYCERIDES 170 mg/dL (15-150); UREA NITROGEN, BLOOD 17 mg/dL (7-18)
[2017-12-29] MEDS: FLUoxetine HCL 10 MG CAPSULE PO SCH (08:45)
[2017-12-29] MEDS: CYCLOPENTOLATE HCL OU SCH ×3 (08:45→16:28)
[2017-12-29] MEDS: ROFLUMILAST 500 MCG TABLET PO SCH (08:47)
[2017-12-29] MEDS: METOPROLOL TARTRATE 25 MG TABLET PO SCH (08:47)
[2017-12-29] MEDS: OMEPRAZOLE 20 MG CAPSULE PO SCH (08:47)
[2017-12-29] MEDS: ATORVASTATIN CALCIUM 10 MG TABLET PO SCH (08:47)
[2017-12-29] MEDS: AmLODIPine BESYLATE 2.5 MG TABLET PO SCH (08:47)
[2017-12-29 17:12] VITALS: BP 150/89
[2017-12-29] MEDS: ZOLPIDEM TARTRATE 10 MG TABLET PO PRN (20:12)
[2017-12-30 08:05] VITALS: BP 145/71
[2017-12-30] MEDS: OMEPRAZOLE 20 MG CAPSULE PO SCH (08:18)
[2017-12-30] MEDS: ATORVASTATIN CALCIUM 10 MG TABLET PO SCH (08:18)
[2017-12-30] MEDS: AmLODIPine BESYLATE 2.5 MG TABLET PO SCH (08:18)
[2017-12-30] MEDS: FLUoxetine HCL 10 MG CAPSULE PO SCH (08:18)
[2017-12-30] MEDS: METOPROLOL TARTRATE 25 MG TABLET PO SCH (08:18)
[2017-12-30] MEDS: CYCLOPENTOLATE HCL OU SCH ×3 (08:18→17:21)
[2017-12-30] MEDS: ROFLUMILAST 500 MCG TABLET PO SCH (08:19)
[2017-12-30 17:00] VITALS: BP 127/79
[2017-12-30] MEDS: ZOLPIDEM TARTRATE 10 MG TABLET PO PRN (20:03)
[2017-12-31 08:05] VITALS: BP 149/85
[2017-12-31] MEDS: CYCLOPENTOLATE HCL OU SCH ×2 (08:36→13:02)
[2017-12-31] MEDS: ROFLUMILAST 500 MCG TABLET PO SCH (08:37)
[2017-12-31] MEDS: ATORVASTATIN CALCIUM 10 MG TABLET PO SCH (08:37)
[2017-12-31] MEDS: METOPROLOL TARTRATE 25 MG TABLET PO SCH (08:37)
[2017-12-31] MEDS: FLUoxetine HCL 10 MG CAPSULE PO SCH (08:37)
[2017-12-31] MEDS: AmLODIPine BESYLATE 2.5 MG TABLET PO SCH (08:37)
[2017-12-31] MEDS: OMEPRAZOLE 20 MG CAPSULE PO SCH (08:38)
[2017-12-31] MEDS ORDERED: MULTIVITAMINS, THERAPEUTIC TABLET PO SCH (09:00)
[2017-12-31] MEDS ORDERED: PROZ10 PO (10:21)
[2017-12-31] MEDS ORDERED: MULT-1239 PO (10:34)
== END 2017-12-31 15:15 | disposition home or self-care (01) | DRG 885 ==
LOC: EMS 10:31 → 3EX 14:24
PROVIDERS: ADMIT Psychiatry & Neurology Psychiatry; ATTEND Psychiatry & Neurology Psychiatry
DX: F33.2 Major depressive disorder, recurrent severe without psychotic features (principal); R45.851 Suicidal ideations; I10 Essential (primary) hypertension; J44.9 Chronic obstructive pulmonary disease, unspecified; E78.5 Hyperlipidemia, unspecified; D64.9 Anemia, unspecified; D72.819 Decreased white blood cell count, unspecified; F41.9 Anxiety disorder, unspecified; F03.90 Unspecified dementia, unspecified severity, without behavioral disturbance, psychotic disturbance, mood disturbance, and anxiety; Z81.8 Family history of other mental and behavioral disorders; Z87.891 Personal history of nicotine dependence; Z90.710 Acquired absence of both cervix and uterus; Z98.84 Bariatric surgery status
CPT/HCPCS: 83036; 84443; 99285; G0480

== ENCOUNTER → 2018-04-09 | Outpatient (CLI) | payer MEDICARE, OTHER ==
[~2018-04-09] VITALS: Ht 170.2 cm; Wt 78.0 kg
[~2018-04-09] MED LIST changes: +MULT-1239 PO; +PROZ10 PO
[2018-04-09 14:50] VITALS: BP 155/77
== END | disposition home or self-care (01) ==
LOC: SRCNTR 13:47
PROVIDERS: ATTEND Internal Medicine Critical Care Medicine
DX: J44.1 Chronic obstructive pulmonary disease with (acute) exacerbation (principal); J96.10 Chronic respiratory failure, unspecified whether with hypoxia or hypercapnia; G47.33 Obstructive sleep apnea (adult) (pediatric); I10 Essential (primary) hypertension; F32.9 Major depressive disorder, single episode, unspecified
CPT/HCPCS: G0463

== ENCOUNTER → 2018-04-11 | Outpatient (CLI) | payer MEDICARE, OTHER | END | disposition home or self-care (01) | LOC: RADMN 12:48 | PROVIDERS: ATTEND Internal Medicine Critical Care Medicine | DX: I67.2 Cerebral atherosclerosis (principal); M46.02 Spinal enthesopathy, cervical region; M40.294 Other kyphosis, thoracic region; M19.032 Primary osteoarthritis, left wrist; I70.0 Atherosclerosis of aorta; I51.7 Cardiomegaly | CPT/HCPCS: 70450; 72125; 72128 ==

== ENCOUNTER 2018-04-22 10:26 | Emergency (ER) | payer MEDICARE, OTHER ==
[~2018-04-22] VITALS: Ht 170.2 cm; Wt 77.3 kg
[2018-04-22] MEDS ORDERED: SODIUM CHLORIDE 0.9% 1,000 ML IV ONE (11:18)
[2018-04-22] MEDS ORDERED: METOCLOPRAMIDE HCL 5 MG/ML 2 ML VIAL IVP ONE (11:30)
[2018-04-22] MEDS ORDERED: DiphenhydrAMINE HCL 50 MG/ML VIAL IVP ONE ×2 (11:30→12:30)
[2018-04-22] MEDS ORDERED: KETOROLAC TROMETHAMINE 30 MG/ML VIAL IVP ONE (14:15)
[2018-04-22 15:04] VITALS: BP 149/76
== END 2018-04-22 15:12 | disposition home or self-care (01) ==
LOC: EMS 10:28
DX: R51 Headache (principal); F07.81 Postconcussional syndrome; R42 Dizziness and giddiness; R11.0 Nausea; J44.9 Chronic obstructive pulmonary disease, unspecified; F32.9 Major depressive disorder, single episode, unspecified; I10 Essential (primary) hypertension; F17.210 Nicotine dependence, cigarettes, uncomplicated; Z90.710 Acquired absence of both cervix and uterus; Z88.5 Allergy status to narcotic agent; Z88.0 Allergy status to penicillin; Z88.2 Allergy status to sulfonamides
CPT/HCPCS: 70450; 96361; 96374; 96375; 99284; J1200; J1885; J2765; J7030

== ENCOUNTER 2018-05-10 11:13 | Emergency (ER) | payer MEDICARE, OTHER ==
[~2018-05-10] VITALS: Ht 170.2 cm; Wt 79.5 kg
[~2018-05-10 11:13] MED LIST changes: -AMLO2.5T3 PO; +AMLO2.5T4 PO
[2018-05-10 11:16] VITALS: BP 154/92
== END 2018-05-10 14:19 | disposition left against medical advice (07) ==
LOC: EMS 11:16
DX: R51 Headache (principal); J44.9 Chronic obstructive pulmonary disease, unspecified; I10 Essential (primary) hypertension; F32.9 Major depressive disorder, single episode, unspecified; F17.210 Nicotine dependence, cigarettes, uncomplicated; Z53.21 Procedure and treatment not carried out due to patient leaving prior to being seen by health care provider

== ENCOUNTER → 2018-05-17 | Outpatient (CLI) | payer MEDICARE, OTHER ==
[~2018-05-17] VITALS: Ht 170.2 cm; Wt 77.0 kg
[~2018-05-17] MED LIST changes: +ACET-2247 PO; +ALPR0.255 PO; +ASPI81 PO; +ATOR40TA28 PO; +CLON-570 PO; +DILT90 PO; +DSS100 PO; +ENOX40DI9 SQ; +MELA3TAB66 PO; +MEMA5 PO; +MIRT15 PO; +MOM30 PO; +OXYB5 PO; +OXYC20 PO; +PANT40TA25 PO; +TEMA15CA PO; +VERA120 PO
[2018-05-17 14:35] VITALS: BP 140/61
== END | disposition home or self-care (01) ==
LOC: SRCNTR 14:13
PROVIDERS: ATTEND Hospitalist
DX: E78.5 Hyperlipidemia, unspecified (principal); J44.9 Chronic obstructive pulmonary disease, unspecified; I10 Essential (primary) hypertension
CPT/HCPCS: G0463

== ENCOUNTER 2018-06-22 09:37 | Emergency (ER) | payer MEDICARE, OTHER ==
[~2018-06-22] VITALS: Ht 170.2 cm; Wt 79.5 kg
[~2018-06-22 09:37] MED LIST changes: -ACET-2247 PO; -ALPR0.255 PO; -ASPI81 PO; -ATOR40TA28 PO; -CLON-570 PO; -DILT90 PO; -DSS100 PO; -ENOX40DI9 SQ; -MELA3TAB66 PO; -MEMA5 PO; -MIRT15 PO; -MOM30 PO; -OXYB5 PO; -OXYC20 PO; -PANT40TA25 PO; -TEMA15CA PO; -VERA120 PO
[2018-06-22] MEDS ORDERED: OXYC20 PO (10:02)
[2018-06-22] MEDS ORDERED: TEMA15CA PO (10:02)
[2018-06-22] MEDS ORDERED: MEMA5 PO (10:02)
[2018-06-22] MEDS ORDERED: DILT90 PO (10:02)
[2018-06-22] MEDS ORDERED: MIRT15 PO (10:02)
[2018-06-22] MEDS ORDERED: ROFL500T PO (10:02)
[2018-06-22] MEDS ORDERED: PANT40TA25 PO (10:02)
[2018-06-22] MEDS ORDERED: ALPR0.255 PO (10:02)
[2018-06-22] MEDS ORDERED: OXYB5 PO (10:02)
[2018-06-22] MEDS ORDERED: FentaNYL CITRATE-PF 100 MCG/2 ML VIAL IVP ONE (11:00)
[2018-06-22] MEDS ORDERED: ONDANSETRON HCL 4 MG/2 ML VIAL IVP ONE (11:00)
[2018-06-22 11:23] LABS: BASOPHILS % (AUTO) 0.6 % (0.0-2.0); EOSINOPHILS % (AUTO) 0.8 % (1.0-6.0); HEMATOCRIT 34.3 % (36-46); HEMOGLOBIN 10.8 g/dL (12.0-16.0); LYMPHOCYTES # (AUTO) 1.2 K/uL (1.0-4.8); LYMPHOCYTES % (AUTO) 39.1 % (22.0-44.0); MEAN CORPUSCULAR HEMOGLOBIN 22.6 pg (26.0-34.0); MEAN CORPUSCULAR HGB CONC 31.5 G/dL (31.0-37.0); MEAN CORPUSCULAR VOLUME 72 fL (80-100); MONOCYTES # (AUTO) 0.3 K/uL (0.1-1.0); MONOCYTES % (AUTO) 9.2 % (2.0-9.0); NEUTROPHILS # (AUTO) 1.6 K/uL (1.8-7.7); NEUTROPHILS % (AUTO) 50.3 % (40.0-70.0); PLATELET COUNT (AUTO) 195 K/uL (150-450); RED BLOOD CELL COUNT(AUTO) 4.79 MIL/uL (4.00-5.20); RED CELL DISTRIBUTION WIDTH 17.4 % (11.5-14.5)
[2018-06-22 11:34] LABS: ANION GAP 6 mmol/L (8-16); CALCIUM, TOTAL 9.7 mg/dL (8.8-10.5); CARBON DIOXIDE 30 mmol/L (22-29); CHLORIDE 107 mmol/L (98-107); CREATININE 0.79 mg/dL (0.60-1.30); GLUCOSE,RANDOM 91 mg/dL (70-110); SODIUM SERUM 143 mmol/L (136-145); UREA NITROGEN, BLOOD 18 mg/dL (7-18)
[2018-06-22 11:35] LABS: GLOMERULAR FILTR. RATE CALC > 60 mL/min (>60)
[2018-06-22 11:46] LABS: ALANINE AMINOTRANSFERASE 16 U/L (12-78); ALBUMIN 3.6 g/dL (3.4-5.0); ALKALINE PHOSPHATASE 104 U/L (46-116); ASPARTATE AMINOTRANSFERASE 14 U/L (15-37); BILIRUBIN,TOTAL 0.3 mg/dL (0.1-1.0); TOTAL PROTEIN, SERUM 7.2 g/dL (6.4-8.2)
[2018-06-22] MEDS ORDERED: SODIUM CHLORIDE 0.9% 100 ML ONE (12:06)
[2018-06-22 13:50] VITALS: BP 162/84
== END 2018-06-22 14:00 | disposition home or self-care (01) ==
LOC: EMS 09:39
DX: R51 Headache (principal); R42 Dizziness and giddiness; J44.9 Chronic obstructive pulmonary disease, unspecified; I10 Essential (primary) hypertension; F32.9 Major depressive disorder, single episode, unspecified; F17.210 Nicotine dependence, cigarettes, uncomplicated; Z90.710 Acquired absence of both cervix and uterus; Z88.5 Allergy status to narcotic agent; Z88.2 Allergy status to sulfonamides; Z88.0 Allergy status to penicillin
CPT/HCPCS: 36415; 70450; 80053; 84484; 85025; 93005; 96374; 96375; 99284; J2405; J3010; J7050

== ENCOUNTER → 2018-07-26 | Outpatient (CLI) | payer MEDICARE, OTHER ==
[~2018-07-26] VITALS: Ht 170.2 cm; Wt 77.0 kg
[~2018-07-26] MED LIST changes: +ASPI-1146 PO; +ASPI-1182 PO; -ATOR10TA84 PO; +ATOR40TA28 PO; +BENZ-51 PO; +BENZ1LOZ68 PO; +BIMA12.5OS OU; +BRIM155OS OU; +DOCU250C91 PO; +FAMO20 PO; +GUAIF10 PO; +LISI-660 PO; +MEMA5 PO; -METO25 PO; -MULT-1239 PO; -OMEP40CA12 PO; +OXYB5 PO; +POLY17PO PO; +VERA120T33 PO; -[UNRECOGNIZED DRUG - CODE] OU
[2018-07-26 11:17] VITALS: BP 109/54
== END | disposition home or self-care (01) ==
LOC: SRCNTR 11:14
PROVIDERS: ATTEND Hospitalist
DX: E78.5 Hyperlipidemia, unspecified (principal); I10 Essential (primary) hypertension; J44.9 Chronic obstructive pulmonary disease, unspecified; D64.9 Anemia, unspecified
CPT/HCPCS: G0463

== ENCOUNTER → 2018-07-31 | Outpatient (CLI) | payer MEDICARE, OTHER ==
[2018-07-31 09:27] VITALS: BP 141/75
== END | disposition home or self-care (01) ==
LOC: SRCNTR 08:50
PROVIDERS: ATTEND Internal Medicine Critical Care Medicine
DX: J44.1 Chronic obstructive pulmonary disease with (acute) exacerbation (principal); J96.10 Chronic respiratory failure, unspecified whether with hypoxia or hypercapnia; G47.33 Obstructive sleep apnea (adult) (pediatric); I10 Essential (primary) hypertension; F32.9 Major depressive disorder, single episode, unspecified; I69.354 Hemiplegia and hemiparesis following cerebral infarction affecting left non-dominant side
CPT/HCPCS: G0463

== ENCOUNTER 2018-08-21 10:25 | Emergency (ER) | payer MEDICARE, OTHER ==
[~2018-08-21] VITALS: Ht 170.2 cm; Wt 83.4 kg
[~2018-08-21 10:25] MED LIST changes: -ASPI-1182 PO
[2018-08-21 12:15] LABS: BASOPHILS % (AUTO) 0.3 % (0.0-2.0); EOSINOPHILS % (AUTO) 1.3 % (1.0-6.0); HEMATOCRIT 32.6 % (36-46); HEMOGLOBIN 10.1 g/dL (12.0-16.0); LYMPHOCYTES # (AUTO) 1.1 K/uL (1.0-4.8); LYMPHOCYTES % (AUTO) 30.8 % (22.0-44.0); MEAN CORPUSCULAR HEMOGLOBIN 22.3 pg (26.0-34.0); MEAN CORPUSCULAR HGB CONC 31.1 G/dL (31.0-37.0); MEAN CORPUSCULAR VOLUME 72 fL (80-100); MONOCYTES # (AUTO) 0.3 K/uL (0.1-1.0); MONOCYTES % (AUTO) 9.1 % (2.0-9.0); NEUTROPHILS # (AUTO) 2.2 K/uL (1.8-7.7); NEUTROPHILS % (AUTO) 58.5 % (40.0-70.0); PLATELET COUNT (AUTO) 207 K/uL (150-450); RED BLOOD CELL COUNT(AUTO) 4.55 MIL/uL (4.00-5.20)
[2018-08-21 12:24] LABS: ANION GAP 5 mmol/L (8-16); B-TYPE NATRIURETIC PEPTIDE 92 pg/mL (0-100); CALCIUM, TOTAL 9.3 mg/dL (8.8-10.5); CARBON DIOXIDE 33 mmol/L (22-29); CHLORIDE 105 mmol/L (98-107); CREATININE 0.73 mg/dL (0.60-1.30); GLUCOSE,RANDOM 93 mg/dL (70-110); POTASSIUM 4.2 mmol/L (3.5-5.1); SODIUM SERUM 143 mmol/L (136-145); UREA NITROGEN, BLOOD 15 mg/dL (7-18)
[2018-08-21 12:26] LABS: GLOMERULAR FILTR. RATE CALC > 60 mL/min (>60)
[2018-08-21 12:29] LABS: ALANINE AMINOTRANSFERASE 18 U/L (12-78); ALBUMIN 3.3 g/dL (3.4-5.0); ALKALINE PHOSPHATASE 87 U/L (46-116); ASPARTATE AMINOTRANSFERASE 16 U/L (15-37); BILIRUBIN,TOTAL 0.3 mg/dL (0.1-1.0); CREATINE KINASE, TOTAL ONLY 76 U/L (26-192)
[2018-08-21 13:35] LABS: APPEARANCE,URINE CLEAR (CLEAR); BILIRUBIN,URINE NEGATIVE (NEGATIVE); GLUCOSE, URINE (UA) NEGATIVE (NEGATIVE); KETONES,URINE NEGATIVE (NEGATIVE); LEUKOCYTE ESTERASE ,URINE NEGATIVE (NEGATIVE); NITRATE,URINE NEGATIVE (NEGATIVE); OCCULT BLOOD,URINE NEGATIVE (NEGATIVE); PROTEIN,URINE NEGATIVE (NEGATIVE); UROBILINOGEN,URINE 0.2 mg/dL (<=1.0)
[2018-08-21 14:05] VITALS: BP 143/84
[2018-08-21] MEDS ORDERED: ASPI-1182 PO (14:26)
[2018-08-21] MEDS ORDERED: ACETAMINOPHEN 325 MG TABLET PO ONE (14:30)
== END 2018-08-21 14:26 | disposition home or self-care (01) ==
LOC: EMS 10:25
DX: R51 Headache (principal); H53.8 Other visual disturbances; I69.30 Unspecified sequelae of cerebral infarction; I10 Essential (primary) hypertension; F17.210 Nicotine dependence, cigarettes, uncomplicated; F32.9 Major depressive disorder, single episode, unspecified; Z90.710 Acquired absence of both cervix and uterus; Z79.899 Other long term (current) drug therapy
CPT/HCPCS: 70450; 93005

== ENCOUNTER 2018-10-08 13:07 | Inpatient (IN) | payer MEDICARE, OTHER ==
[~2018-10-08] VITALS: Ht 170.2 cm; Wt 76.8 kg
[~2018-10-08 13:07] MED LIST changes: -ASPI-1146 PO; +ASPI-1182 PO; -BENZ-51 PO; -GUAIF10 PO
[2018-10-08] MEDS ORDERED: IOVERSOL 320 MG/ML 100 ML VIAL ONE (13:46)
[2018-10-08] MEDS ORDERED: IOVERSOL 350 MG/ML 100 ML VIAL ONE (13:48)
[2018-10-08 14:05] LABS: BASOPHILS % (AUTO) 0.4 % (0.0-2.0); EOSINOPHILS % (AUTO) 1.5 % (1.0-6.0); HEMATOCRIT 33.7 % (36-46); HEMOGLOBIN 10.3 g/dL (12.0-16.0); LYMPHOCYTES # (AUTO) 1.2 K/uL (1.0-4.8); LYMPHOCYTES % (AUTO) 38.2 % (22.0-44.0); MEAN CORPUSCULAR HEMOGLOBIN 22.2 pg (26.0-34.0); MEAN CORPUSCULAR HGB CONC 30.5 G/dL (31.0-37.0); MEAN CORPUSCULAR VOLUME 73 fL (80-100); MONOCYTES # (AUTO) 0.3 K/uL (0.1-1.0); MONOCYTES % (AUTO) 9.4 % (2.0-9.0); NEUTROPHILS # (AUTO) 1.6 K/uL (1.8-7.7); NEUTROPHILS % (AUTO) 50.5 % (40.0-70.0); PLATELET COUNT (AUTO) 200 K/uL (150-450); RED BLOOD CELL COUNT(AUTO) 4.61 MIL/uL (4.00-5.20); RED CELL DISTRIBUTION WIDTH 17.7 % (11.5-14.5)
[2018-10-08 14:14] LABS: PROTHROMBIN TIME 10.3 SEC (9.4-11.6)
[2018-10-08 14:23] LABS: ANION GAP 6 mmol/L (8-16); CALCIUM, TOTAL 9.2 mg/dL (8.8-10.5); CARBON DIOXIDE 30 mmol/L (22-29); CHLORIDE 107 mmol/L (98-107); CREATININE 1.01 mg/dL (0.60-1.30); GLUCOSE,RANDOM 106 mg/dL (70-110); POTASSIUM 3.9 mmol/L (3.5-5.1); SODIUM SERUM 143 mmol/L (136-145); UREA NITROGEN, BLOOD 20 mg/dL (7-18)
[2018-10-08 14:25] LABS: ALBUMIN 3.5 g/dL (3.4-5.0); ALKALINE PHOSPHATASE 102 U/L (46-116); ASPARTATE AMINOTRANSFERASE 18 U/L (15-37); BILIRUBIN,TOTAL 0.3 mg/dL (0.1-1.0); GLOMERULAR FILTR. RATE CALC > 60 mL/min (>60); TOTAL PROTEIN, SERUM 6.5 g/dL (6.4-8.2)
[2018-10-08] MEDS ORDERED: ACETAMINOPHEN 325 MG TABLET PO ONE (14:30)
[2018-10-08 14:35] LABS: ALANINE AMINOTRANSFERASE 33 U/L (12-78)
[2018-10-08] MEDS ORDERED: ASPIRIN 325 MG TABLET PO ONE (15:00)
[2018-10-08] MEDS ORDERED: ONDANSETRON HCL 4 MG/2 ML VIAL IVP PRN (15:30)
[2018-10-08] MEDS ORDERED: BISACODYL 10 MG RECTAL RECTAL SUPPOSITORY PR PRN (15:30)
[2018-10-08] MEDS ORDERED: ZOLPIDEM TARTRATE 5 MG TABLET PO PRN (15:30)
[2018-10-08] MEDS ORDERED: MAGNESIUM HYDROXIDE SUSPENSION 30 ML UDCUP PO PRN (15:30)
[2018-10-08] MEDS ORDERED: LORazepam 2 MG/ML VIAL IVP ONE (15:45)
[2018-10-08] MEDS ORDERED: HEPARIN SODIUM,PORCINE 5,000 UNITS/ML VIAL SQ SCH (16:00)
[2018-10-08] MEDS: OXYBUTYNIN CHLORIDE 5 MG TABLET PO SCH ×2 (16:55→20:42)
[2018-10-08 18:59] VITALS: BP 151/76
[2018-10-08 20:12] VITALS: BP 143/69
[2018-10-08] MEDS: RANOLAZINE 500 MG ER TABLET PO SCH (20:41)
[2018-10-08] MEDS: FAMOTIDINE 20 MG TABLET PO SCH (20:42)
[2018-10-08] MEDS: DOCUSATE SODIUM 100 MG CAPSULE PO SCH (20:42)
[2018-10-08] MEDS: ATORVASTATIN CALCIUM 40 MG TABLET PO SCH (20:42)
[2018-10-08] MEDS: BRIMONIDINE TARTRATE 0.15% 5 ML OPHTHALMIC SOLUTION OU SCH (20:45)
[2018-10-08] MEDS: BIMATOPROST 0.01% 2.5 ML OPHTHALMIC SOLUTION OU SCH (20:45)
[2018-10-08 23:46] VITALS: BP 118/60
[2018-10-09] MEDS: ASPIRIN 81 MG EC TABLET PO SCH (08:27)
[2018-10-09] MEDS: FAMOTIDINE 20 MG TABLET PO SCH ×2 (08:27→20:39)
[2018-10-09] MEDS: ACETAMINOPHEN 325 MG TABLET PO PRN ×2 (08:29→23:56)
[2018-10-09] MEDS: DOCUSATE SODIUM 100 MG CAPSULE PO SCH ×2 (08:30→20:39)
[2018-10-09] MEDS: PANTOPRAZOLE SODIUM 40 MG DR TABLET PO SCH (08:33)
[2018-10-09] MEDS: RANOLAZINE 500 MG ER TABLET PO SCH ×2 (08:34→20:38)
[2018-10-09] MEDS: VERAPAMIL HCL 120 MG ER TABLET PO SCH (08:34)
[2018-10-09] MEDS: OXYBUTYNIN CHLORIDE 5 MG TABLET PO SCH (08:34)
[2018-10-09] MEDS: MEMANTINE HCL 5 MG TABLET PO SCH (08:34)
[2018-10-09 08:35] VITALS: BP 123/67
[2018-10-09] MEDS: BRIMONIDINE TARTRATE 0.15% 5 ML OPHTHALMIC SOLUTION OU SCH ×2 (08:35→20:38)
[2018-10-09] MEDS: FLUoxetine HCL 10 MG CAPSULE PO SCH (08:35)
[2018-10-09 10:44] LABS: APPEARANCE,URINE CLEAR (CLEAR); BILIRUBIN,URINE NEGATIVE (NEGATIVE); GLUCOSE, URINE (UA) NEGATIVE (NEGATIVE); KETONES,URINE NEGATIVE (NEGATIVE); LEUKOCYTE ESTERASE ,URINE NEGATIVE (NEGATIVE); NITRATE,URINE NEGATIVE (NEGATIVE); OCCULT BLOOD,URINE NEGATIVE (NEGATIVE); PROTEIN,URINE NEGATIVE (NEGATIVE); UROBILINOGEN,URINE 0.2 mg/dL (<=1.0)
[2018-10-09 10:49] LABS: AMPHET/METH SCREEN,URINE NEGATIVE (NEGATIVE); BARBITURATE SCREEN, URINE NEGATIVE (NEGATIVE); BENZODIAZEPINES SCREEN,URINE POSITIVE (NEGATIVE); CANNABINOID SCREEN,URINE NEGATIVE (NEGATIVE); COCAINE SCREEN,URINE NEGATIVE (NEGATIVE); METHADONE SCREEN, URINE NEGATIVE (NEGATIVE); OPIATE SCREEN,URINE NEGATIVE (NEGATIVE)
[2018-10-09 10:50] LABS: PHENCYCLIDINE SCREEN,URINE NEGATIVE (NEGATIVE)
[2018-10-09 11:15] VITALS: BP 144/70
[2018-10-09 11:59] LABS: BACTERIA,URINE None Seen /HPF (None Seen); RBC,URINE None Seen /HPF (0-2); SQUAMOUS EPITHELIAL CELL,UR Rare /LPF (None Seen); WBC,URINE 0-2 /HPF (0-5)
[2018-10-09 16:00] VITALS: BP 143/72
[2018-10-09 19:43] VITALS: BP 131/65
[2018-10-09] MEDS: ATORVASTATIN CALCIUM 40 MG TABLET PO SCH (20:38)
[2018-10-09] MEDS: BIMATOPROST 0.01% 2.5 ML OPHTHALMIC SOLUTION OU SCH (20:38)
[2018-10-10] VITALS (8 sets, daily range): BP systolic 111–201; BP diastolic 67–85
[2018-10-10] MEDS ORDERED: CloNIDine HCL 0.1 MG TABLET PO PRN (00:45)
[2018-10-10] MEDS ORDERED: AmLODIPine BESYLATE 10 MG TABLET PO ONE (01:00)
[2018-10-10] MEDS: ACETAMINOPHEN 325 MG TABLET PO PRN (06:40)
[2018-10-10] MEDS: ASPIRIN 81 MG EC TABLET PO SCH (08:23)
[2018-10-10] MEDS: VERAPAMIL HCL 120 MG ER TABLET PO SCH (08:23)
[2018-10-10] MEDS: DOCUSATE SODIUM 100 MG CAPSULE PO SCH ×2 (08:23→21:47)
[2018-10-10] MEDS: AmLODIPine BESYLATE 10 MG TABLET PO SCH (08:24)
[2018-10-10] MEDS: PANTOPRAZOLE SODIUM 40 MG DR TABLET PO SCH (08:24)
[2018-10-10] MEDS: BRIMONIDINE TARTRATE 0.15% 5 ML OPHTHALMIC SOLUTION OU SCH ×2 (08:24→21:48)
[2018-10-10] MEDS: MEMANTINE HCL 5 MG TABLET PO SCH (08:24)
[2018-10-10] MEDS: RANOLAZINE 500 MG ER TABLET PO SCH ×2 (08:24→22:08)
[2018-10-10] MEDS: FLUoxetine HCL 10 MG CAPSULE PO SCH (08:24)
[2018-10-10 11:35] LABS: BASOPHILS % (AUTO) 0.3 % (0.0-2.0); EOSINOPHILS % (AUTO) 1.7 % (1.0-6.0); HEMATOCRIT 34.4 % (36-46); HEMOGLOBIN 10.8 g/dL (12.0-16.0); LYMPHOCYTES # (AUTO) 1.1 K/uL (1.0-4.8); LYMPHOCYTES % (AUTO) 37.3 % (22.0-44.0); MEAN CORPUSCULAR HEMOGLOBIN 22.6 pg (26.0-34.0); MEAN CORPUSCULAR HGB CONC 31.3 G/dL (31.0-37.0); MEAN CORPUSCULAR VOLUME 72 fL (80-100); MONOCYTES # (AUTO) 0.3 K/uL (0.1-1.0); MONOCYTES % (AUTO) 10.3 % (2.0-9.0); NEUTROPHILS # (AUTO) 1.4 K/uL (1.8-7.7); NEUTROPHILS % (AUTO) 50.4 % (40.0-70.0); PLATELET COUNT (AUTO) 195 K/uL (150-450); RED BLOOD CELL COUNT(AUTO) 4.77 MIL/uL (4.00-5.20); RED CELL DISTRIBUTION WIDTH 17.8 % (11.5-14.5)
[2018-10-10 11:57] LABS: ANION GAP 6 mmol/L (8-16); CARBON DIOXIDE 30 mmol/L (22-29); CHLORIDE 105 mmol/L (98-107); CREATININE 0.87 mg/dL (0.60-1.30); GLUCOSE,RANDOM 97 mg/dL (70-110); SODIUM SERUM 141 mmol/L (136-145); UREA NITROGEN, BLOOD 11 mg/dL (7-18)
[2018-10-10] MEDS: HYDROCODONE/ACETAMINOPHEN 5-325 MG TABLET PO PRN (11:58)
[2018-10-10 11:59] LABS: GLOMERULAR FILTR. RATE CALC > 60 mL/min (>60)
[2018-10-10 12:07] LABS: ALANINE AMINOTRANSFERASE 29 U/L (12-78); ALBUMIN 3.5 g/dL (3.4-5.0); ALKALINE PHOSPHATASE 100 U/L (46-116); ASPARTATE AMINOTRANSFERASE 20 U/L (15-37); BILIRUBIN,TOTAL 0.3 mg/dL (0.1-1.0); TOTAL PROTEIN, SERUM 7.1 g/dL (6.4-8.2)
[2018-10-10] MEDS ORDERED: ZOLPIDEM TARTRATE 5 MG TABLET PO PRN (21:15)
[2018-10-10] MEDS: ATORVASTATIN CALCIUM 40 MG TABLET PO SCH (21:47)
[2018-10-10] MEDS: BIMATOPROST 0.01% 2.5 ML OPHTHALMIC SOLUTION OU SCH (21:48)
[2018-10-11 04:34] VITALS: BP 150/73
[2018-10-11 07:58] VITALS: BP 153/78
[2018-10-11] MEDS: BRIMONIDINE TARTRATE 0.15% 5 ML OPHTHALMIC SOLUTION OU SCH (08:15)
[2018-10-11] MEDS: DOCUSATE SODIUM 100 MG CAPSULE PO SCH (08:15)
[2018-10-11] MEDS: ASPIRIN 81 MG EC TABLET PO SCH (08:16)
[2018-10-11] MEDS: MEMANTINE HCL 5 MG TABLET PO SCH (08:16)
[2018-10-11] MEDS: AmLODIPine BESYLATE 10 MG TABLET PO SCH (08:16)
[2018-10-11] MEDS: PANTOPRAZOLE SODIUM 40 MG DR TABLET PO SCH (08:16)
[2018-10-11] MEDS: HYDROCODONE/ACETAMINOPHEN 5-325 MG TABLET PO PRN (08:17)
[2018-10-11] MEDS: RANOLAZINE 500 MG ER TABLET PO SCH (08:17)
[2018-10-11] MEDS: FLUoxetine HCL 10 MG CAPSULE PO SCH (08:17)
[2018-10-11] MEDS ORDERED: VERAPAMIL HCL 240 MG ER TABLET PO SCH (09:00)
[2018-10-11] MEDS ORDERED: VERA240SR PO (10:30)
[2018-10-11] MEDS ORDERED: RANO500T3 PO (10:30)
[2018-10-11 11:30] VITALS: BP 132/52
== END 2018-10-11 16:38 | DRG 69 ==
LOC: EMS 13:11 → 5N 16:55
PROVIDERS: ADMIT Internal Medicine; ATTEND Internal Medicine
DX: G45.9 Transient cerebral ischemic attack, unspecified (principal); I69.354 Hemiplegia and hemiparesis following cerebral infarction affecting left non-dominant side; I10 Essential (primary) hypertension; E78.5 Hyperlipidemia, unspecified; J44.9 Chronic obstructive pulmonary disease, unspecified; R32 Unspecified urinary incontinence; K21.9 Gastro-esophageal reflux disease without esophagitis; F01.50 Vascular dementia, unspecified severity, without behavioral disturbance, psychotic disturbance, mood disturbance, and anxiety; F17.210 Nicotine dependence, cigarettes, uncomplicated; F32.9 Major depressive disorder, single episode, unspecified; R29.810 Facial weakness; D64.9 Anemia, unspecified; D72.819 Decreased white blood cell count, unspecified; I25.10 Atherosclerotic heart disease of native coronary artery without angina pectoris; Z88.0 Allergy status to penicillin; Z88.2 Allergy status to sulfonamides; Z88.8 Allergy status to other drugs, medicaments and biological substances; Z79.82 Long term (current) use of aspirin; Z90.710 Acquired absence of both cervix and uterus; Z98.84 Bariatric surgery status
CPT/HCPCS: 70496; 70551; 86850; 86900; 86901; 92507; 92610; 93005; 97116; 97162; 97166; 97535; 99291; G0378; J1644; J2060

== ENCOUNTER 2018-11-01 09:29 | Inpatient (IN) | payer MEDICARE, OTHER ==
[~2018-11-01] VITALS: Ht 175.3 cm; Wt 78.8 kg
[2018-11-01] VITALS (8 sets, daily range): BP systolic 132–157; BP diastolic 63–85
[~2018-11-01 09:29] MED LIST changes: -AMLO2.5T4 PO; -BENZ1LOZ68 PO; +RANO500T3 PO; -VERA120T33 PO; +VERA240SR PO
[2018-11-01] MEDS ORDERED: BENZ-51 PO (09:39)
[2018-11-01] MEDS ORDERED: AMLO2.5T4 PO (09:39)
[2018-11-01] MEDS ORDERED: IOVERSOL 350 MG/ML 100 ML VIAL ONE (09:43)
[2018-11-01] MEDS ORDERED: SODIUM CHLORIDE 0.9% 0 ML ONE ×2 (09:44→20:44)
[2018-11-01 09:45] LABS: BASOPHILS % (AUTO) 0.3 % (0.0-2.0); EOSINOPHILS % (AUTO) 1.1 % (1.0-6.0); HEMATOCRIT 34.8 % (36-46); HEMOGLOBIN 10.7 g/dL (12.0-16.0); LYMPHOCYTES # (AUTO) 1.2 K/uL (1.0-4.8); LYMPHOCYTES % (AUTO) 39.4 % (22.0-44.0); MEAN CORPUSCULAR HEMOGLOBIN 22.5 pg (26.0-34.0); MEAN CORPUSCULAR HGB CONC 30.9 G/dL (31.0-37.0); MEAN CORPUSCULAR VOLUME 73 fL (80-100); MONOCYTES # (AUTO) 0.3 K/uL (0.1-1.0); MONOCYTES % (AUTO) 9.7 % (2.0-9.0); NEUTROPHILS # (AUTO) 1.5 K/uL (1.8-7.7); NEUTROPHILS % (AUTO) 49.5 % (40.0-70.0); PLATELET COUNT (AUTO) 212 K/uL (150-450); RED BLOOD CELL COUNT(AUTO) 4.76 MIL/uL (4.00-5.20); RED CELL DISTRIBUTION WIDTH 17.1 % (11.5-14.5)
[2018-11-01 09:54] LABS: PROTHROMBIN TIME 10.1 SEC (9.4-11.6)
[2018-11-01 09:57] LABS: CALCIUM, TOTAL 10.1 mg/dL (8.8-10.5); CREATININE 1.12 mg/dL (0.60-1.30); POTASSIUM 4.1 mmol/L (3.5-5.1)
[2018-11-01] MEDS ORDERED: ALTEPLASE PER STROKE PROTOCOL CLINICAL ONE (10:00)
[2018-11-01 10:02] LABS: ALBUMIN 3.3 g/dL (3.4-5.0); BILIRUBIN,TOTAL 0.2 mg/dL (0.1-1.0)
[2018-11-01] MEDS ORDERED: ALTEPLASE IV ONE ×2 (10:15)
[2018-11-01] MEDS ORDERED: WATER FOR INJECTION STERILE IV ONE ×2 (10:15)
[2018-11-01] MEDS ORDERED: ACETAMINOPHEN 325 MG TABLET PO PRN (11:45)
[2018-11-01] MEDS ORDERED: ONDANSETRON HCL 4 MG/2 ML VIAL IVP PRN (11:45)
[2018-11-01 11:54] LABS: GLUCOSE,POINT OF CARE 88 MG/DL (70-110)
[2018-11-01] MEDS ORDERED: SUCCINYLCHOLINE CHLORIDE 20 MG/ML 10 ML VIAL IVP ONE (12:00)
[2018-11-01] MEDS ORDERED: ETOMIDATE 2 MG/ML 10 ML VIAL IVP ONE (12:00)
[2018-11-01] MEDS ORDERED: RAPID SEQUENCE KIT [RSI] 1 EACH KIT ONE (12:04)
[2018-11-01] MEDS ORDERED: SUCCINYLCHOLINE CHLORIDE 20 MG/ML 10 ML VIAL ONE (12:05)
[2018-11-01] MEDS ORDERED: PROPOFOL 1000 MG/ISO-OSM 100 ML IV ONE (12:18)
[2018-11-01] MEDS ORDERED: PROPOFOL 1000 MG/ISO-OSM 100 ML IV PRN (12:26)
[2018-11-01] MEDS ORDERED: IOVERSOL 320 MG/ML 100 ML VIAL ONE (20:44)
[2018-11-01] MEDS ORDERED: ACETAMINOPHEN 325 MG TABLET ONE (21:50)
[2018-11-01] MEDS ORDERED: NICARDipine 20 MG/DEXT,ISO-OSM 200 ML IV PRN (22:03)
[2018-11-01] MEDS ORDERED: NiCARDipine HCL 25 MG in DEXTROSE 5%-WATER 240 ML IV PRN (22:45)
[2018-11-02] VITALS (18 sets, daily range): BP systolic 102–177; BP diastolic 53–93
[2018-11-02 05:05] LABS: ANION GAP 3 mmol/L (8-16); CALCIUM, TOTAL 9.4 mg/dL (8.8-10.5); CARBON DIOXIDE 28 mmol/L (22-29); CHLORIDE 101 mmol/L (98-107); CREATININE 1.02 mg/dL (0.60-1.30); GLUCOSE,RANDOM 81 mg/dL (70-110); POTASSIUM 3.6 mmol/L (3.5-5.1); SODIUM SERUM 132 mmol/L (136-145); UREA NITROGEN, BLOOD 18 mg/dL (7-18)
[2018-11-02 05:06] LABS: INR 1.4 (0.9-1.1); PROTHROMBIN TIME 14.9 SEC (9.4-11.6)
[2018-11-02 05:10] LABS: GLOMERULAR FILTR. RATE CALC > 60 mL/min (>60)
[2018-11-02 07:21] LABS: HEMATOCRIT 32.4 % (36-46); HEMOGLOBIN 10.1 g/dL (12.0-16.0); MEAN CORPUSCULAR HEMOGLOBIN 22.8 pg (26.0-34.0); MEAN CORPUSCULAR HGB CONC 31.2 G/dL (31.0-37.0); MEAN CORPUSCULAR VOLUME 73 fL (80-100); PLATELET COUNT (AUTO) 160 K/uL (150-450); RED BLOOD CELL COUNT(AUTO) 4.43 MIL/uL (4.00-5.20); RED CELL DISTRIBUTION WIDTH 16.8 % (11.5-14.5)
[2018-11-02] MEDS: ACETAMINOPHEN 325 MG TABLET PO PRN ×2 (07:24→12:14)
[2018-11-02] MEDS ORDERED: GADOBUTROL 1 MMOL/ML 10 ML VIAL IVP ONE (07:30)
[2018-11-02] MEDS: BRIMONIDINE TARTRATE 0.15% 5 ML OPHTHALMIC SOLUTION OU SCH ×2 (07:54→22:13)
[2018-11-02 08:01] LABS: SEGMENTED NEUTROPHILS % 69 % (40-70)
[2018-11-02 08:02] LABS: BAND NEUTROPHILS % (MANUAL) 3 % (0-5); LYMPHOCYTES % (MANUAL) 20 % (22-44); MONOCYTES % (MANUAL) 8 % (2-9)
[2018-11-02] MEDS ORDERED: LORazepam 2 MG/ML VIAL IVP ONE (08:15)
[2018-11-02] MEDS ORDERED: IOVERSOL 350 MG/ML 150 ML VIAL ONE (08:17)
[2018-11-02] MEDS ORDERED: SODIUM CHLORIDE 0.9% 100 ML ONE (08:17)
[2018-11-02 08:51] LABS: HEMOGLOBIN A1C 6.2 % (4.5-6.2)
[2018-11-02 08:55] LABS: CHOL/HDL RATIO 3.3 (3.9-5.7); CHOLESTEROL 165 mg/dL (131-200); HDL CHOLESTEROL 50 mg/dL (40-60); LDL CHOL (CALC.) 90 mg/dL (0-130); THYROID STIMULATING HORMONE 0.66 uIU/mL (0.36-3.74); TRIGLYCERIDES 127 mg/dL (15-150)
[2018-11-02] MEDS: POLYETHYLENE GLYCOL 3350 17 GM PACKET PO SCH (09:00)
[2018-11-02] MEDS ORDERED: ASPIRIN 81 MG EC TABLET PO SCH (09:00)
[2018-11-02] MEDS: DOCUSATE SODIUM 250 MG CAPSULE PO SCH ×2 (09:00→22:13)
[2018-11-02] MEDS: OXYBUTYNIN CHLORIDE 5 MG TABLET PO SCH ×4 (09:00→22:12)
[2018-11-02] MEDS: AmLODIPine BESYLATE 2.5 MG TABLET PO SCH ×2 (12:13→22:13)
[2018-11-02] MEDS: ROFLUMILAST 500 MCG TABLET PO SCH (13:23)
[2018-11-02] MEDS: FLUoxetine HCL 10 MG CAPSULE PO SCH (13:24)
[2018-11-02] MEDS: MEMANTINE HCL 5 MG TABLET PO SCH (13:24)
[2018-11-02] MEDS: FAMOTIDINE 20 MG TABLET PO SCH ×2 (13:24→22:13)
[2018-11-02] MEDS: RANOLAZINE 500 MG ER TABLET PO SCH ×2 (13:24→22:13)
[2018-11-02] MEDS: BENZONATATE 100 MG CAPSULE PO SCH ×3 (13:24→22:13)
[2018-11-02] MEDS: METOPROLOL TARTRATE 25 MG TABLET PO SCH ×2 (15:43→22:13)
[2018-11-02] MEDS: BIMATOPROST 0.01% 2.5 ML OPHTHALMIC SOLUTION OU SCH (22:12)
[2018-11-02] MEDS: ATORVASTATIN CALCIUM 40 MG TABLET PO SCH (22:12)
[2018-11-02] MEDS ORDERED: TEMAZEPAM 7.5 MG CAPSULE PO PRN (22:45)
[2018-11-03] VITALS (7 sets, daily range): BP systolic 119–177; BP diastolic 50–88
[2018-11-03 05:40] LABS: BASOPHILS % (AUTO) 0.1 % (0.0-2.0); EOSINOPHILS % (AUTO) 2.2 % (1.0-6.0); HEMATOCRIT 29.8 % (36-46); HEMOGLOBIN 9.3 g/dL (12.0-16.0); LYMPHOCYTES # (AUTO) 0.8 K/uL (1.0-4.8); LYMPHOCYTES % (AUTO) 20.5 % (22.0-44.0); MEAN CORPUSCULAR HEMOGLOBIN 22.9 pg (26.0-34.0); MEAN CORPUSCULAR HGB CONC 31.4 G/dL (31.0-37.0); MEAN CORPUSCULAR VOLUME 73 fL (80-100); MONOCYTES # (AUTO) 0.5 K/uL (0.1-1.0); MONOCYTES % (AUTO) 11.6 % (2.0-9.0); NEUTROPHILS # (AUTO) 2.6 K/uL (1.8-7.7); NEUTROPHILS % (AUTO) 65.6 % (40.0-70.0); PLATELET COUNT (AUTO) 161 K/uL (150-450); RED BLOOD CELL COUNT(AUTO) 4.09 MIL/uL (4.00-5.20); RED CELL DISTRIBUTION WIDTH 16.6 % (11.5-14.5)
[2018-11-03 05:51] LABS: ANION GAP 5 mmol/L (8-16); CALCIUM, TOTAL 9.1 mg/dL (8.8-10.5); CARBON DIOXIDE 30 mmol/L (22-29); CHLORIDE 106 mmol/L (98-107); CREATININE 0.83 mg/dL (0.60-1.30); GLUCOSE,RANDOM 109 mg/dL (70-110); POTASSIUM 3.9 mmol/L (3.5-5.1); SODIUM SERUM 141 mmol/L (136-145); UREA NITROGEN, BLOOD 15 mg/dL (7-18)
[2018-11-03 05:54] LABS: GLOMERULAR FILTR. RATE CALC > 60 mL/min (>60)
[2018-11-03] MEDS: FAMOTIDINE 20 MG TABLET PO SCH ×2 (06:34→20:48)
[2018-11-03] MEDS: ACETAMINOPHEN 325 MG TABLET PO PRN (06:35)
[2018-11-03] MEDS: POLYETHYLENE GLYCOL 3350 17 GM PACKET PO SCH (09:00)
[2018-11-03] MEDS: DOCUSATE SODIUM 250 MG CAPSULE PO SCH ×2 (09:00→20:47)
[2018-11-03] MEDS: AmLODIPine BESYLATE 2.5 MG TABLET PO SCH (09:10)
[2018-11-03] MEDS: ASPIRIN 325 MG TABLET PO SCH (09:11)
[2018-11-03] MEDS: FLUoxetine HCL 10 MG CAPSULE PO SCH (09:11)
[2018-11-03] MEDS: BENZONATATE 100 MG CAPSULE PO SCH ×3 (09:11→20:47)
[2018-11-03] MEDS: ROFLUMILAST 500 MCG TABLET PO SCH (09:11)
[2018-11-03] MEDS: MEMANTINE HCL 5 MG TABLET PO SCH (09:11)
[2018-11-03] MEDS: METOPROLOL TARTRATE 25 MG TABLET PO SCH ×2 (09:12→21:36)
[2018-11-03] MEDS: RANOLAZINE 500 MG ER TABLET PO SCH ×2 (09:12→21:36)
[2018-11-03] MEDS: BRIMONIDINE TARTRATE 0.15% 5 ML OPHTHALMIC SOLUTION OU SCH ×2 (09:12→20:47)
[2018-11-03] MEDS: OXYBUTYNIN CHLORIDE 5 MG TABLET PO SCH ×4 (09:12→20:47)
[2018-11-03] MEDS ORDERED: MAG HYDROX/AL HYDROX/SIMETH ES 30 ML SUSPENSION UDCUP PO ONE (15:15)
[2018-11-03] MEDS ORDERED: HydrALAZINE HCL 20 MG/ML VIAL IVP PRN (18:15)
[2018-11-03] MEDS: BIMATOPROST 0.01% 2.5 ML OPHTHALMIC SOLUTION OU SCH (20:46)
[2018-11-03] MEDS: ATORVASTATIN CALCIUM 40 MG TABLET PO SCH (20:47)
[2018-11-03] MEDS: AmLODIPine BESYLATE 5 MG TABLET PO SCH (21:36)
[2018-11-04 00:05] VITALS: BP 134/71
[2018-11-04 04:21] VITALS: BP 143/61
[2018-11-04 07:06] LABS: ANION GAP 6 mmol/L (8-16); CALCIUM, TOTAL 9.3 mg/dL (8.8-10.5); CARBON DIOXIDE 30 mmol/L (22-29); CHLORIDE 106 mmol/L (98-107); CREATININE 0.86 mg/dL (0.60-1.30); GLUCOSE,RANDOM 106 mg/dL (70-110); POTASSIUM 4.1 mmol/L (3.5-5.1); SODIUM SERUM 142 mmol/L (136-145); UREA NITROGEN, BLOOD 15 mg/dL (7-18)
[2018-11-04 07:07] LABS: GLOMERULAR FILTR. RATE CALC > 60 mL/min (>60)
[2018-11-04 07:23] VITALS: BP 170/68
[2018-11-04] MEDS: ASPIRIN 325 MG TABLET PO SCH (07:41)
[2018-11-04] MEDS: BENZONATATE 100 MG CAPSULE PO SCH ×3 (07:41→22:08)
[2018-11-04] MEDS: DOCUSATE SODIUM 250 MG CAPSULE PO SCH ×2 (07:41→22:07)
[2018-11-04] MEDS: AmLODIPine BESYLATE 5 MG TABLET PO SCH ×2 (07:41→22:07)
[2018-11-04] MEDS: POLYETHYLENE GLYCOL 3350 17 GM PACKET PO SCH (07:41)
[2018-11-04] MEDS: MEMANTINE HCL 5 MG TABLET PO SCH (07:42)
[2018-11-04] MEDS: METOPROLOL TARTRATE 25 MG TABLET PO SCH ×2 (07:42→22:07)
[2018-11-04] MEDS: RANOLAZINE 500 MG ER TABLET PO SCH ×2 (07:42→22:07)
[2018-11-04] MEDS: FAMOTIDINE 20 MG TABLET PO SCH ×2 (07:42→22:07)
[2018-11-04] MEDS: FLUoxetine HCL 10 MG CAPSULE PO SCH (07:42)
[2018-11-04] MEDS: ROFLUMILAST 500 MCG TABLET PO SCH (07:42)
[2018-11-04] MEDS: BRIMONIDINE TARTRATE 0.15% 5 ML OPHTHALMIC SOLUTION OU SCH ×2 (07:42→22:08)
[2018-11-04] MEDS: OXYBUTYNIN CHLORIDE 5 MG TABLET PO SCH ×4 (07:42→22:07)
[2018-11-04 10:57] VITALS: BP 155/77
[2018-11-04 14:58] VITALS: BP 123/69
[2018-11-04] MEDS ORDERED: ZOLPIDEM TARTRATE 5 MG TABLET PO PRN (20:15)
[2018-11-04 20:16] VITALS: BP 149/72
[2018-11-04] MEDS: BIMATOPROST 0.01% 2.5 ML OPHTHALMIC SOLUTION OU SCH (21:00)
[2018-11-04] MEDS: ATORVASTATIN CALCIUM 40 MG TABLET PO SCH (22:09)
[2018-11-05 00:30] VITALS: BP 126/48
[2018-11-05 04:41] VITALS: BP 141/59
[2018-11-05 05:36] LABS: ANION GAP 8 mmol/L (8-16); CALCIUM, TOTAL 9.5 mg/dL (8.8-10.5); CARBON DIOXIDE 31 mmol/L (22-29); CHLORIDE 106 mmol/L (98-107); CREATININE 0.94 mg/dL (0.60-1.30); GLUCOSE,RANDOM 109 mg/dL (70-110); POTASSIUM 3.9 mmol/L (3.5-5.1); SODIUM SERUM 145 mmol/L (136-145); UREA NITROGEN, BLOOD 15 mg/dL (7-18)
[2018-11-05 05:38] LABS: GLOMERULAR FILTR. RATE CALC > 60 mL/min (>60)
[2018-11-05] MEDS: POLYETHYLENE GLYCOL 3350 17 GM PACKET PO SCH (08:45)
[2018-11-05] MEDS: DOCUSATE SODIUM 250 MG CAPSULE PO SCH (08:45)
[2018-11-05] MEDS: OXYBUTYNIN CHLORIDE 5 MG TABLET PO SCH ×2 (08:46→13:29)
[2018-11-05] MEDS: MEMANTINE HCL 5 MG TABLET PO SCH (08:46)
[2018-11-05] MEDS: ASPIRIN 325 MG TABLET PO SCH (08:46)
[2018-11-05] MEDS: METOPROLOL TARTRATE 25 MG TABLET PO SCH (08:46)
[2018-11-05] MEDS: FAMOTIDINE 20 MG TABLET PO SCH (08:46)
[2018-11-05] MEDS: BENZONATATE 100 MG CAPSULE PO SCH (08:46)
[2018-11-05] MEDS: AmLODIPine BESYLATE 5 MG TABLET PO SCH (08:46)
[2018-11-05] MEDS: ROFLUMILAST 500 MCG TABLET PO SCH (08:47)
[2018-11-05] MEDS: RANOLAZINE 500 MG ER TABLET PO SCH (08:47)
[2018-11-05] MEDS: FLUoxetine HCL 10 MG CAPSULE PO SCH (08:47)
[2018-11-05] MEDS: BRIMONIDINE TARTRATE 0.15% 5 ML OPHTHALMIC SOLUTION OU SCH (08:48)
[2018-11-05 12:02] VITALS: BP 138/62
[2018-11-05] MEDS ORDERED: AMLO5TAB9 PO (14:05)
[2018-11-05] MEDS ORDERED: CLOP75TA3 PO (14:13)
[2018-11-05] MEDS ORDERED: HYDR-4069 PO (14:13)
== END 2018-11-05 14:25 | disposition home health service (06) | DRG 61 ==
LOC: EMS 10:15 → ICU 19:30 → 5S 11-03 16:40
PROVIDERS: ADMIT Hospitalist; ATTEND Hospitalist
PROC: 3E03317 Introduction of Other Thrombolytic into Peripheral Vein, Percutaneous Approach (ICD-10-PCS; principal; 2018-11-01)
PROC: 5A1935Z Respiratory Ventilation, Less than 24 Consecutive Hours (ICD-10-PCS; 2018-11-01)
PROC: 0BH17EZ Insertion of Endotracheal Airway into Trachea, Via Natural or Artificial Opening (ICD-10-PCS; 2018-11-01)
DX: I63.9 Cerebral infarction, unspecified (principal); J96.90 Respiratory failure, unspecified, unspecified whether with hypoxia or hypercapnia; E87.1 Hypo-osmolality and hyponatremia; I50.32 Chronic diastolic (congestive) heart failure; G81.94 Hemiplegia, unspecified affecting left nondominant side; R29.810 Facial weakness; D50.9 Iron deficiency anemia, unspecified; J44.9 Chronic obstructive pulmonary disease, unspecified; E78.5 Hyperlipidemia, unspecified; E66.9 Obesity, unspecified; F32.9 Major depressive disorder, single episode, unspecified; I11.0 Hypertensive heart disease with heart failure; R47.81 Slurred speech; I35.1 Nonrheumatic aortic (valve) insufficiency; I27.20 Pulmonary hypertension, unspecified; Z88.1 Allergy status to other antibiotic agents; Z88.0 Allergy status to penicillin; Z88.8 Allergy status to other drugs, medicaments and biological substances; Z90.710 Acquired absence of both cervix and uterus; Z98.84 Bariatric surgery status; Z82.49 Family history of ischemic heart disease and other diseases of the circulatory system; Z87.891 Personal history of nicotine dependence; Z68.25 Body mass index [BMI] 25.0-25.9, adult; Z87.01 Personal history of pneumonia (recurrent)
CPT/HCPCS: 31500; 51702; 70450; 70551; 82948; 83036; 84443; 87081; 92610; 93005; 93306; 93880; 94002; 95816; 97116; 97162; 97166; 97530; 97535; 99291; A9585; G0378; J0330; J0360; J2060; J2704; J2997; J3490; J7050

== ENCOUNTER 2018-11-26 13:42 | Inpatient (IN) | payer MEDICARE, OTHER ==
[~2018-11-26] VITALS: Ht 175.3 cm; Wt 79.4 kg
[~2018-11-26 13:42] MED LIST changes: +AMLO2.5T4 PO; +BENZ-51 PO; +CLOP75TA3 PO; +HYDR-4069 PO
[2018-11-26] MEDS ORDERED: IOVERSOL 350 MG/ML 100 ML VIAL ONE (13:56)
[2018-11-26 14:06] LABS: BASOPHILS % (AUTO) 0.5 % (0.0-2.0); EOSINOPHILS % (AUTO) 1.9 % (1.0-6.0); HEMATOCRIT 32.5 % (36-46); LYMPHOCYTES # (AUTO) 1.1 K/uL (1.0-4.8); MEAN CORPUSCULAR HEMOGLOBIN 22.5 pg (26.0-34.0); MEAN CORPUSCULAR HGB CONC 30.8 G/dL (31.0-37.0); MEAN CORPUSCULAR VOLUME 73 fL (80-100); MONOCYTES # (AUTO) 0.3 K/uL (0.1-1.0); MONOCYTES % (AUTO) 9.2 % (2.0-9.0); NEUTROPHILS # (AUTO) 1.8 K/uL (1.8-7.7); NEUTROPHILS % (AUTO) 54.4 % (40.0-70.0); PLATELET COUNT (AUTO) 212 K/uL (150-450); RED BLOOD CELL COUNT(AUTO) 4.45 MIL/uL (4.00-5.20); RED CELL DISTRIBUTION WIDTH 17.5 % (11.5-14.5)
[2018-11-26 14:15] LABS: ANION GAP 8 mmol/L (8-16); CALCIUM, TOTAL 9.5 mg/dL (8.8-10.5); CARBON DIOXIDE 30 mmol/L (22-29); CHLORIDE 104 mmol/L (98-107); CREATININE 0.86 mg/dL (0.60-1.30); GLUCOSE,RANDOM 87 mg/dL (70-110); POTASSIUM 3.8 mmol/L (3.5-5.1); SODIUM SERUM 142 mmol/L (136-145); UREA NITROGEN, BLOOD 15 mg/dL (7-18)
[2018-11-26 14:17] LABS: GLOMERULAR FILTR. RATE CALC > 60 mL/min (>60)
[2018-11-26 14:19] LABS: INR 0.9 (0.9-1.1); PROTHROMBIN TIME 9.9 SEC (9.4-11.6)
[2018-11-26 14:20] LABS: ALANINE AMINOTRANSFERASE 15 U/L (12-78); ALBUMIN 3.4 g/dL (3.4-5.0); ALKALINE PHOSPHATASE 111 U/L (46-116); ASPARTATE AMINOTRANSFERASE 15 U/L (15-37); BILIRUBIN,TOTAL 0.4 mg/dL (0.1-1.0); TOTAL PROTEIN, SERUM 7.3 g/dL (6.4-8.2)
[2018-11-26] MEDS ORDERED: ACETAMINOPHEN 500 MG TABLET PO ONE (14:30)
[2018-11-26] MEDS ORDERED: MAGNESIUM HYDROXIDE SUSPENSION 30 ML UDCUP PO PRN (15:30)
[2018-11-26] MEDS ORDERED: ACETAMINOPHEN 325 MG TABLET PO PRN ×2 (15:30)
[2018-11-26] MEDS ORDERED: ONDANSETRON HCL 4 MG/2 ML VIAL IVP PRN (15:30)
[2018-11-26] MEDS ORDERED: CloNIDine HCL 0.1 MG TABLET PO PRN (15:45)
[2018-11-26] MEDS: AmLODIPine BESYLATE 10 MG TABLET PO SCH (15:52)
[2018-11-26 18:40] VITALS: BP 123/44
[2018-11-26 19:53] VITALS: BP 115/51
[2018-11-26] MEDS: HEPARIN SODIUM,PORCINE 5,000 UNITS/ML VIAL SQ SCH (21:18)
[2018-11-26] MEDS: DOCUSATE SODIUM 100 MG CAPSULE PO SCH (21:19)
[2018-11-26] MEDS: ATORVASTATIN CALCIUM 40 MG TABLET PO SCH (21:19)
[2018-11-27] VITALS (7 sets, daily range): BP systolic 131–159; BP diastolic 60–76
[2018-11-27 08:21] LABS: BASOPHILS % (AUTO) 0.4 % (0.0-2.0); EOSINOPHILS % (AUTO) 1.7 % (1.0-6.0); HEMATOCRIT 32.5 % (36-46); HEMOGLOBIN 10.1 g/dL (12.0-16.0); LYMPHOCYTES # (AUTO) 1.2 K/uL (1.0-4.8); LYMPHOCYTES % (AUTO) 28.4 % (22.0-44.0); MEAN CORPUSCULAR HEMOGLOBIN 22.9 pg (26.0-34.0); MEAN CORPUSCULAR HGB CONC 31.1 G/dL (31.0-37.0); MEAN CORPUSCULAR VOLUME 74 fL (80-100); MONOCYTES # (AUTO) 0.4 K/uL (0.1-1.0); MONOCYTES % (AUTO) 8.3 % (2.0-9.0); NEUTROPHILS # (AUTO) 2.6 K/uL (1.8-7.7); NEUTROPHILS % (AUTO) 61.2 % (40.0-70.0); PLATELET COUNT (AUTO) 198 K/uL (150-450); RED BLOOD CELL COUNT(AUTO) 4.41 MIL/uL (4.00-5.20); RED CELL DISTRIBUTION WIDTH 17.5 % (11.5-14.5)
[2018-11-27 08:29] LABS: ANION GAP 5 mmol/L (8-16); CALCIUM, TOTAL 9.2 mg/dL (8.8-10.5); CARBON DIOXIDE 33 mmol/L (22-29); CHLORIDE 105 mmol/L (98-107); CREATININE 0.87 mg/dL (0.60-1.30); GLUCOSE,RANDOM 88 mg/dL (70-110); POTASSIUM 3.8 mmol/L (3.5-5.1); SODIUM SERUM 143 mmol/L (136-145); UREA NITROGEN, BLOOD 13 mg/dL (7-18)
[2018-11-27 08:30] LABS: GLOMERULAR FILTR. RATE CALC > 60 mL/min (>60)
[2018-11-27] MEDS: FAMOTIDINE 20 MG TABLET PO SCH (08:34)
[2018-11-27] MEDS: HEPARIN SODIUM,PORCINE 5,000 UNITS/ML VIAL SQ SCH ×2 (08:34→21:00)
[2018-11-27] MEDS: AmLODIPine BESYLATE 10 MG TABLET PO SCH (08:34)
[2018-11-27] MEDS: DOCUSATE SODIUM 100 MG CAPSULE PO SCH ×2 (08:34→21:18)
[2018-11-27] MEDS: CLOPIDOGREL BISULFATE 75 MG TABLET PO SCH (08:34)
[2018-11-27] MEDS: ASPIRIN 81 MG CHEWABLE TABLET PO SCH (08:34)
[2018-11-27] MEDS: ATORVASTATIN CALCIUM 40 MG TABLET PO SCH (21:18)
[2018-11-28 04:18] VITALS: BP 149/55
[2018-11-28 07:51] VITALS: BP 142/70
[2018-11-28] MEDS: ASPIRIN 81 MG CHEWABLE TABLET PO SCH (10:17)
[2018-11-28] MEDS: AmLODIPine BESYLATE 10 MG TABLET PO SCH (10:17)
[2018-11-28] MEDS: DOCUSATE SODIUM 100 MG CAPSULE PO SCH (10:17)
[2018-11-28] MEDS: CLOPIDOGREL BISULFATE 75 MG TABLET PO SCH (10:18)
[2018-11-28] MEDS: FAMOTIDINE 20 MG TABLET PO SCH (10:18)
[2018-11-28] MEDS: HEPARIN SODIUM,PORCINE 5,000 UNITS/ML VIAL SQ SCH (10:19)
[2018-11-28 12:02] VITALS: BP 147/62
[2018-11-28] MEDS ORDERED: AMLO10TA7 PO (13:19)
== END 2018-11-28 14:40 | disposition home health service (06) | DRG 69 ==
LOC: EMS 13:44 → 5N 17:34 → 5S 11-27 14:07
PROVIDERS: ADMIT Internal Medicine; ATTEND Internal Medicine
DX: G45.9 Transient cerebral ischemic attack, unspecified (principal); I69.354 Hemiplegia and hemiparesis following cerebral infarction affecting left non-dominant side; I10 Essential (primary) hypertension; J44.9 Chronic obstructive pulmonary disease, unspecified; F17.210 Nicotine dependence, cigarettes, uncomplicated; F32.9 Major depressive disorder, single episode, unspecified; Z88.8 Allergy status to other drugs, medicaments and biological substances; Z88.1 Allergy status to other antibiotic agents; Z88.0 Allergy status to penicillin; Z90.710 Acquired absence of both cervix and uterus; Z98.84 Bariatric surgery status; Z82.49 Family history of ischemic heart disease and other diseases of the circulatory system; Z71.6 Tobacco abuse counseling; Z79.82 Long term (current) use of aspirin
CPT/HCPCS: 70496; 87081; 93005; 95816; 97116; 97162; 97166; 97535; 99291; J1644

== ENCOUNTER → 2018-12-12 | Outpatient (CLI) | payer MEDICARE, OTHER ==
[~2018-12-12] MED LIST changes: +AMLO10TA7 PO; -AMLO2.5T4 PO; -BENZ-51 PO; -HYDR-4069 PO; -LISI-660 PO; -OXYB5 PO; -RANO500T3 PO; -VERA240SR PO
[2018-12-12 12:55] LABS: BASOPHILS % (AUTO) 0.3 % (0.0-2.0); EOSINOPHILS % (AUTO) 1.6 % (1.0-6.0); LYMPHOCYTES % (AUTO) 26.6 % (22.0-44.0); MEAN CORPUSCULAR HEMOGLOBIN 23.2 pg (26.0-34.0); MEAN CORPUSCULAR HGB CONC 31.2 G/dL (31.0-37.0); MEAN CORPUSCULAR VOLUME 74 fL (80-100); MONOCYTES # (AUTO) 0.3 K/uL (0.1-1.0); MONOCYTES % (AUTO) 8.2 % (2.0-9.0); NEUTROPHILS # (AUTO) 2.3 K/uL (1.8-7.7); NEUTROPHILS % (AUTO) 63.3 % (40.0-70.0); PLATELET COUNT (AUTO) 214 K/uL (150-450); RED BLOOD CELL COUNT(AUTO) 4.31 MIL/uL (4.00-5.20); RED CELL DISTRIBUTION WIDTH 17.4 % (11.5-14.5)
[2018-12-12 13:15] LABS: ALANINE AMINOTRANSFERASE 28 U/L (12-78); ALBUMIN 3.6 g/dL (3.4-5.0); ALKALINE PHOSPHATASE 115 U/L (46-116); ANION GAP 3 mmol/L (8-16); ASPARTATE AMINOTRANSFERASE 15 U/L (15-37); BILIRUBIN,TOTAL 0.4 mg/dL (0.1-1.0); CALCIUM, TOTAL 9.5 mg/dL (8.8-10.5); CARBON DIOXIDE 32 mmol/L (22-29); CHLORIDE 106 mmol/L (98-107); CHOL/HDL RATIO 2.8 (3.9-5.7); CHOLESTEROL 158 mg/dL (131-200); CREATININE 0.99 mg/dL (0.60-1.30); GLUCOSE,RANDOM 137 mg/dL (70-110); HDL CHOLESTEROL 56 mg/dL (40-60); LDL CHOL (CALC.) 82 mg/dL (0-130); POTASSIUM 4.1 mmol/L (3.5-5.1); SODIUM SERUM 141 mmol/L (136-145); TOTAL PROTEIN, SERUM 7.1 g/dL (6.4-8.2); TRIGLYCERIDES 101 mg/dL (15-150); UREA NITROGEN, BLOOD 18 mg/dL (7-18)
[2018-12-12 13:18] LABS: GLOMERULAR FILTR. RATE CALC > 60 mL/min (>60)
== END | disposition home or self-care (01) ==
LOC: LABMN 12:25
PROVIDERS: ATTEND Internal Medicine Cardiovascular Disease
DX: E55.9 Vitamin D deficiency, unspecified (principal); E11.8 Type 2 diabetes mellitus with unspecified complications; I11.0 Hypertensive heart disease with heart failure; I50.9 Heart failure, unspecified; D56.5 Hemoglobin E-beta thalassemia
CPT/HCPCS: 83036; 83735; 84439; 84443

== ENCOUNTER → 2019-01-03 | Outpatient (CLI) | payer MEDICARE, OTHER ==
[~2019-01-03] MED LIST changes: +BENZ-39 PO; +DOCU250C16 PO; +OXYB5TAB10 PO; +RANO500T3 PO
[2019-01-03 11:20] LABS: BASOPHILS % (AUTO) 0.3 % (0.0-2.0); EOSINOPHILS % (AUTO) 1.4 % (1.0-6.0); HEMATOCRIT 32.6 % (36-46); LYMPHOCYTES # (AUTO) 1.1 K/uL (1.0-4.8); LYMPHOCYTES % (AUTO) 36.3 % (22.0-44.0); MEAN CORPUSCULAR HEMOGLOBIN 22.6 pg (26.0-34.0); MEAN CORPUSCULAR HGB CONC 30.5 G/dL (31.0-37.0); MEAN CORPUSCULAR VOLUME 74 fL (80-100); MONOCYTES # (AUTO) 0.3 K/uL (0.1-1.0); MONOCYTES % (AUTO) 11.5 % (2.0-9.0); NEUTROPHILS # (AUTO) 1.5 K/uL (1.8-7.7); NEUTROPHILS % (AUTO) 50.5 % (40.0-70.0); PLATELET COUNT (AUTO) 208 K/uL (150-450); RED CELL DISTRIBUTION WIDTH 17.4 % (11.5-14.5)
[2019-01-03 11:26] LABS: ALANINE AMINOTRANSFERASE 14 U/L (12-78); ALBUMIN 3.8 g/dL (3.4-5.0); ALKALINE PHOSPHATASE 88 U/L (46-116); ANION GAP 7 mmol/L (8-16); ASPARTATE AMINOTRANSFERASE 16 U/L (15-37); BILIRUBIN,TOTAL 0.3 mg/dL (0.1-1.0); CALCIUM, TOTAL 9.4 mg/dL (8.8-10.5); CARBON DIOXIDE 30 mmol/L (22-29); CHLORIDE 107 mmol/L (98-107); CHOLESTEROL 160 mg/dL (131-200); CREATININE 1.02 mg/dL (0.60-1.30); FREE T4 (FREE THYROXINE) 0.79 ng/dL (0.76-1.46); GLUCOSE,RANDOM 110 mg/dL (70-110); HDL CHOLESTEROL 54 mg/dL (40-60); LDL CHOL (CALC.) 87 mg/dL (0-130); POTASSIUM 3.7 mmol/L (3.5-5.1); SODIUM SERUM 144 mmol/L (136-145); TOTAL PROTEIN, SERUM 7.3 g/dL (6.4-8.2); TRIGLYCERIDES 97 mg/dL (15-150); UREA NITROGEN, BLOOD 21 mg/dL (7-18)
[2019-01-03 11:35] LABS: GLOMERULAR FILTR. RATE CALC > 60 mL/min (>60)
== END | disposition home or self-care (01) ==
LOC: LABMN 10:38
PROVIDERS: ATTEND Internal Medicine Cardiovascular Disease
DX: E55.9 Vitamin D deficiency, unspecified (principal); I11.0 Hypertensive heart disease with heart failure; I50.9 Heart failure, unspecified; E11.8 Type 2 diabetes mellitus with unspecified complications; D56.5 Hemoglobin E-beta thalassemia
CPT/HCPCS: 83036; 83735; 84439; 84443

== ENCOUNTER → 2019-02-15 | Outpatient (CLI) | payer MEDICARE, OTHER ==
[~2019-02-15] MED LIST changes: +DOCU-342 PO; -DOCU250C91 PO; +EZET10TA13 PO; +LOSA50TA64 PO; +MAGOX PO; -OXYB5TAB10 PO; +OXYB5TAB15 PO
[2019-02-15 10:28] LABS: BASOPHILS % (AUTO) 0.4 % (0.0-2.0); EOSINOPHILS % (AUTO) 1.9 % (1.0-6.0); HEMATOCRIT 30.8 % (36-46); HEMOGLOBIN 9.8 g/dL (12.0-16.0); LYMPHOCYTES % (AUTO) 36.6 % (22.0-44.0); MEAN CORPUSCULAR HEMOGLOBIN 23.2 pg (26.0-34.0); MEAN CORPUSCULAR VOLUME 73 fL (80-100); MONOCYTES # (AUTO) 0.3 K/uL (0.1-1.0); MONOCYTES % (AUTO) 10.5 % (2.0-9.0); NEUTROPHILS # (AUTO) 1.4 K/uL (1.8-7.7); NEUTROPHILS % (AUTO) 50.6 % (40.0-70.0); PLATELET COUNT (AUTO) 178 K/uL (150-450); RED BLOOD CELL COUNT(AUTO) 4.24 MIL/uL (4.00-5.20); RED CELL DISTRIBUTION WIDTH 17.5 % (11.5-14.5)
[2019-02-15 10:46] LABS: ALANINE AMINOTRANSFERASE 20 U/L (12-78); ALBUMIN 3.4 g/dL (3.4-5.0); ALKALINE PHOSPHATASE 79 U/L (46-116); ANION GAP 9 mmol/L (8-16); ASPARTATE AMINOTRANSFERASE 16 U/L (15-37); BILIRUBIN,TOTAL 0.3 mg/dL (0.1-1.0); CALCIUM, TOTAL 8.6 mg/dL (8.8-10.5); CARBON DIOXIDE 31 mmol/L (22-29); CHLORIDE 106 mmol/L (98-107); CHOL/HDL RATIO 2.2 (3.9-5.7); CHOLESTEROL 141 mg/dL (131-200); CREATININE 0.99 mg/dL (0.60-1.30); GLOMERULAR FILTR. RATE CALC > 60 mL/min (>60); GLUCOSE,RANDOM 101 mg/dL (70-110); HDL CHOLESTEROL 63 mg/dL (40-60); LDL CHOL (CALC.) 65 mg/dL (0-130); SODIUM SERUM 146 mmol/L (136-145); TOTAL PROTEIN, SERUM 6.9 g/dL (6.4-8.2); TRIGLYCERIDES 63 mg/dL (15-150); UREA NITROGEN, BLOOD 18 mg/dL (7-18)
[2019-02-15 10:53] LABS: B-TYPE NATRIURETIC PEPTIDE 57 pg/mL (0-100)
== END | disposition home or self-care (01) ==
LOC: LABMN 09:58
PROVIDERS: ATTEND Internal Medicine Cardiovascular Disease
DX: E55.9 Vitamin D deficiency, unspecified (principal); I11.0 Hypertensive heart disease with heart failure; I50.9 Heart failure, unspecified; E11.8 Type 2 diabetes mellitus with unspecified complications; D56.5 Hemoglobin E-beta thalassemia

== ENCOUNTER → 2019-05-03 | Outpatient (CLI) | payer MEDICARE, OTHER ==
[~2019-05-03] MED LIST changes: -ROFL500T PO
[2019-05-03 13:19] LABS: BASOPHILS % (AUTO) 0.6 % (0.0-2.0); EOSINOPHILS % (AUTO) 2.1 % (1.0-6.0); HEMATOCRIT 33.3 % (36-46); HEMOGLOBIN 10.5 g/dL (12.0-16.0); LYMPHOCYTES % (AUTO) 29.8 % (22.0-44.0); MEAN CORPUSCULAR HGB CONC 31.5 G/dL (31.0-37.0); MEAN CORPUSCULAR VOLUME 73 fL (80-100); MONOCYTES # (AUTO) 0.3 K/uL (0.1-1.0); MONOCYTES % (AUTO) 9.9 % (2.0-9.0); NEUTROPHILS % (AUTO) 57.6 % (40.0-70.0); PLATELET COUNT (AUTO) 193 K/uL (150-450); RED BLOOD CELL COUNT(AUTO) 4.55 MIL/uL (4.00-5.20); RED CELL DISTRIBUTION WIDTH 16.9 % (11.5-14.5)
[2019-05-03 13:32] LABS: HEMOGLOBIN A1C 6.1 % (4.5-6.2)
[2019-05-03 13:44] LABS: ALANINE AMINOTRANSFERASE 33 U/L (12-78); ALBUMIN 3.7 g/dL (3.4-5.0); ALKALINE PHOSPHATASE 107 U/L (46-116); ANION GAP 5 mmol/L (8-16); ASPARTATE AMINOTRANSFERASE 26 U/L (15-37); BILIRUBIN,TOTAL 0.3 mg/dL (0.1-1.0); CALCIUM, TOTAL 9.4 mg/dL (8.8-10.5); CARBON DIOXIDE 31 mmol/L (22-29); CHLORIDE 103 mmol/L (98-107); CHOL/HDL RATIO 2.4 (3.9-5.7); CHOLESTEROL 148 mg/dL (131-200); CREATININE 1.01 mg/dL (0.60-1.30); FREE T4 (FREE THYROXINE) 0.73 ng/dL (0.76-1.46); GLUCOSE,RANDOM 108 mg/dL (70-110); HDL CHOLESTEROL 61 mg/dL (40-60); LDL CHOL (CALC.) 63 mg/dL (0-130); POTASSIUM 4.6 mmol/L (3.5-5.1); SODIUM SERUM 139 mmol/L (136-145); THYROID STIMULATING HORMONE 2.53 uIU/mL (0.36-3.74); TOTAL PROTEIN, SERUM 7.4 g/dL (6.4-8.2); TRIGLYCERIDES 118 mg/dL (15-150); UREA NITROGEN, BLOOD 22 mg/dL (7-18)
[2019-05-03 13:46] LABS: GLOMERULAR FILTR. RATE CALC > 60 mL/min (>60)
== END | disposition home or self-care (01) ==
LOC: LABMN 12:50
PROVIDERS: ATTEND Internal Medicine Cardiovascular Disease
DX: I10 Essential (primary) hypertension (principal); I50.9 Heart failure, unspecified; E11.8 Type 2 diabetes mellitus with unspecified complications; E55.9 Vitamin D deficiency, unspecified; D56.5 Hemoglobin E-beta thalassemia
CPT/HCPCS: 83036; 83735; 84439; 84443

== ENCOUNTER 2019-05-26 14:31 | Emergency (ER) | payer MEDICARE, OTHER ==
[~2019-05-26] VITALS: Ht 170.2 cm; Wt 77.3 kg
[~2019-05-26 14:31] MED LIST changes: +ASPI-1111 PO; -ASPI-1182 PO; +LOSA-88 PO; -LOSA50TA64 PO
[2019-05-26 16:41] LABS: BASOPHILS % (AUTO) 0.4 % (0.0-2.0); HEMATOCRIT 32.8 % (36-46); HEMOGLOBIN 10.7 g/dL (12.0-16.0); LYMPHOCYTES # (AUTO) 1.4 K/uL (1.0-4.8); LYMPHOCYTES % (AUTO) 39.1 % (22.0-44.0); MEAN CORPUSCULAR HEMOGLOBIN 23.8 pg (26.0-34.0); MEAN CORPUSCULAR HGB CONC 32.6 G/dL (31.0-37.0); MEAN CORPUSCULAR VOLUME 73 fL (80-100); MONOCYTES # (AUTO) 0.4 K/uL (0.1-1.0); MONOCYTES % (AUTO) 10.5 % (2.0-9.0); NEUTROPHILS # (AUTO) 1.8 K/uL (1.8-7.7); PLATELET COUNT (AUTO) 181 K/uL (150-450)
[2019-05-26 16:53] LABS: ANION GAP 5 mmol/L (8-16); CALCIUM, TOTAL 9.4 mg/dL (8.8-10.5); CARBON DIOXIDE 31 mmol/L (22-29); CHLORIDE 105 mmol/L (98-107); CREATININE 0.82 mg/dL (0.60-1.30); GLUCOSE,RANDOM 95 mg/dL (70-110); POTASSIUM 4.5 mmol/L (3.5-5.1); SODIUM SERUM 141 mmol/L (136-145); UREA NITROGEN, BLOOD 13 mg/dL (7-18)
[2019-05-26 16:56] LABS: GLOMERULAR FILTR. RATE CALC > 60 mL/min (>60)
[2019-05-26 16:59] LABS: ALANINE AMINOTRANSFERASE 20 U/L (12-78); ALBUMIN 3.6 g/dL (3.4-5.0); ALKALINE PHOSPHATASE 82 U/L (46-116); ASPARTATE AMINOTRANSFERASE 17 U/L (15-37); BILIRUBIN,TOTAL 0.2 mg/dL (0.1-1.0); TOTAL PROTEIN, SERUM 7.1 g/dL (6.4-8.2)
[2019-05-26 17:01] LABS: APPEARANCE,URINE CLEAR (CLEAR); BILIRUBIN,URINE NEGATIVE (NEGATIVE); GLUCOSE, URINE (UA) NEGATIVE (NEGATIVE); KETONES,URINE NEGATIVE (NEGATIVE); LEUKOCYTE ESTERASE ,URINE NEGATIVE (NEGATIVE); NITRATE,URINE NEGATIVE (NEGATIVE); OCCULT BLOOD,URINE NEGATIVE (NEGATIVE); PROTEIN,URINE NEGATIVE (NEGATIVE); UROBILINOGEN,URINE 0.2 mg/dL (<=1.0)
[2019-05-26] MEDS ORDERED: IBUPROFEN 600 MG TABLET PO ONE (18:15)
[2019-05-26 18:36] VITALS: BP 158/79
== END 2019-05-26 19:08 | disposition home or self-care (01) ==
LOC: EMS 14:35
DX: R10.9 Unspecified abdominal pain (principal); R35.0 Frequency of micturition; J44.9 Chronic obstructive pulmonary disease, unspecified; I10 Essential (primary) hypertension; F32.9 Major depressive disorder, single episode, unspecified; F17.210 Nicotine dependence, cigarettes, uncomplicated; Z86.73 Personal history of transient ischemic attack (TIA), and cerebral infarction without residual deficits; Z90.710 Acquired absence of both cervix and uterus; Z88.5 Allergy status to narcotic agent; Z88.1 Allergy status to other antibiotic agents; Z88.0 Allergy status to penicillin

== ENCOUNTER 2019-06-01 11:44 | Emergency (ER) | payer MEDICARE, OTHER ==
[~2019-06-01] VITALS: Ht 170.2 cm; Wt 77.3 kg
[~2019-06-01 11:44] MED LIST changes: -DOCU-342 PO
[2019-06-01 12:59] LABS: BASOPHILS % (AUTO) 0.3 % (0.0-2.0); EOSINOPHILS % (AUTO) 1.4 % (1.0-6.0); HEMATOCRIT 32.5 % (36-46); HEMOGLOBIN 10.1 g/dL (12.0-16.0); LYMPHOCYTES # (AUTO) 0.9 K/uL (1.0-4.8); LYMPHOCYTES % (AUTO) 35.3 % (22.0-44.0); MEAN CORPUSCULAR HEMOGLOBIN 22.6 pg (26.0-34.0); MEAN CORPUSCULAR HGB CONC 31.2 G/dL (31.0-37.0); MEAN CORPUSCULAR VOLUME 72 fL (80-100); MONOCYTES # (AUTO) 0.2 K/uL (0.1-1.0); MONOCYTES % (AUTO) 9.2 % (2.0-9.0); NEUTROPHILS # (AUTO) 1.4 K/uL (1.8-7.7); NEUTROPHILS % (AUTO) 53.8 % (40.0-70.0); PLATELET COUNT (AUTO) 184 K/uL (150-450)
[2019-06-01 13:06] LABS: ANION GAP 9 mmol/L (8-16); CALCIUM, TOTAL 8.7 mg/dL (8.8-10.5); CARBON DIOXIDE 29 mmol/L (22-29); CHLORIDE 106 mmol/L (98-107); CREATININE 0.85 mg/dL (0.60-1.30); GLOMERULAR FILTR. RATE CALC > 60 mL/min (>60); GLUCOSE,RANDOM 94 mg/dL (70-110); POTASSIUM 3.6 mmol/L (3.5-5.1); SODIUM SERUM 144 mmol/L (136-145); UREA NITROGEN, BLOOD 15 mg/dL (7-18)
[2019-06-01 13:12] LABS: ALANINE AMINOTRANSFERASE 23 U/L (12-78); ALBUMIN 3.5 g/dL (3.4-5.0); ALKALINE PHOSPHATASE 73 U/L (46-116); ASPARTATE AMINOTRANSFERASE 16 U/L (15-37); BILIRUBIN,TOTAL 0.3 mg/dL (0.1-1.0); TOTAL PROTEIN, SERUM 6.7 g/dL (6.4-8.2)
[2019-06-01 13:24] LABS: APPEARANCE,URINE CLOUDY (CLEAR); BILIRUBIN,URINE NEGATIVE (NEGATIVE); GLUCOSE, URINE (UA) NEGATIVE (NEGATIVE); KETONES,URINE NEGATIVE (NEGATIVE); LEUKOCYTE ESTERASE ,URINE SMALL (NEGATIVE); NITRATE,URINE NEGATIVE (NEGATIVE); OCCULT BLOOD,URINE NEGATIVE (NEGATIVE); PH,URINE 6.5 (5.0-8.0); PROTEIN,URINE NEGATIVE (NEGATIVE); UROBILINOGEN,URINE 0.2 mg/dL (<=1.0)
[2019-06-01 13:43] LABS: BACTERIA,URINE Many /HPF (None Seen); RBC,URINE None Seen /HPF (0-2); SQUAMOUS EPITHELIAL CELL,UR Many /LPF (None Seen)
[2019-06-01] MEDS ORDERED: TraMADol HCL 50 MG TABLET PO ONE (14:45)
[2019-06-01] MEDS ORDERED: IBUPROFEN 600 MG TABLET PO ONE (18:15)
[2019-06-01 18:22] VITALS: BP 152/71
== END 2019-06-01 18:32 | disposition home or self-care (01) ==
LOC: EMS 11:45
DX: K59.00 Constipation, unspecified (principal); N39.0 Urinary tract infection, site not specified; F17.210 Nicotine dependence, cigarettes, uncomplicated; J44.9 Chronic obstructive pulmonary disease, unspecified; F32.9 Major depressive disorder, single episode, unspecified; I10 Essential (primary) hypertension; Z90.710 Acquired absence of both cervix and uterus; Z88.1 Allergy status to other antibiotic agents; Z88.5 Allergy status to narcotic agent; Z88.0 Allergy status to penicillin; Z79.82 Long term (current) use of aspirin
CPT/HCPCS: 74176; 87086

== ENCOUNTER → 2019-06-20 | Outpatient (CLI) | payer MEDICARE, OTHER ==
[~2019-06-20] VITALS: Ht 180.3 cm; Wt 80.0 kg
[2019-06-20 11:49] VITALS: BP 125/58
== END | disposition home or self-care (01) ==
LOC: SRCNTR 11:46
PROVIDERS: ATTEND Hospitalist
DX: J44.0 Chronic obstructive pulmonary disease with (acute) lower respiratory infection (principal); D50.9 Iron deficiency anemia, unspecified; I11.0 Hypertensive heart disease with heart failure; I50.30 Unspecified diastolic (congestive) heart failure; E78.5 Hyperlipidemia, unspecified; I27.21 Secondary pulmonary arterial hypertension; I35.1 Nonrheumatic aortic (valve) insufficiency; M54.5 Low back pain; F03.90 Unspecified dementia, unspecified severity, without behavioral disturbance, psychotic disturbance, mood disturbance, and anxiety; Z86.718 Personal history of other venous thrombosis and embolism
CPT/HCPCS: G0463

== ENCOUNTER 2019-08-28 00:19 | Emergency (ER) | payer MEDICARE, OTHER ==
[~2019-08-28] VITALS: Ht 171.4 cm; Wt 87.7 kg
[2019-08-28 01:21] LABS: GLUCOSE,POINT OF CARE 131 MG/DL (70-110)
[2019-08-28 01:39] LABS: BASOPHILS % (AUTO) 0.2 % (0.0-2.0); HEMATOCRIT 32.9 % (36-46); HEMOGLOBIN 10.2 g/dL (12.0-16.0); LYMPHOCYTES % (AUTO) 22.3 % (22.0-44.0); MEAN CORPUSCULAR HEMOGLOBIN 22.7 pg (26.0-34.0); MEAN CORPUSCULAR HGB CONC 31.2 G/dL (31.0-37.0); MEAN CORPUSCULAR VOLUME 73 fL (80-100); MONOCYTES # (AUTO) 0.4 K/uL (0.1-1.0); MONOCYTES % (AUTO) 7.7 % (2.0-9.0); NEUTROPHILS # (AUTO) 3.2 K/uL (1.8-7.7); NEUTROPHILS % (AUTO) 68.8 % (40.0-70.0); PLATELET COUNT (AUTO) 181 K/uL (150-450); RED CELL DISTRIBUTION WIDTH 16.9 % (11.5-14.5)
[2019-08-28 01:44] LABS: ANION GAP 6 mmol/L (8-16); CALCIUM, TOTAL 9.2 mg/dL (8.8-10.5); CARBON DIOXIDE 33 mmol/L (22-29); CHLORIDE 105 mmol/L (98-107); CREATININE 1.05 mg/dL (0.60-1.30); GLUCOSE,RANDOM 152 mg/dL (70-110); POTASSIUM 3.8 mmol/L (3.5-5.1); SODIUM SERUM 144 mmol/L (136-145); UREA NITROGEN, BLOOD 16 mg/dL (7-18)
[2019-08-28 01:46] LABS: GLOMERULAR FILTR. RATE CALC > 60 mL/min (>60)
[2019-08-28 02:00] LABS: ALANINE AMINOTRANSFERASE 17 U/L (12-78); ALBUMIN 3.4 g/dL (3.4-5.0); ALKALINE PHOSPHATASE 74 U/L (46-116); ASPARTATE AMINOTRANSFERASE 13 U/L (15-37); BILIRUBIN,TOTAL 0.2 mg/dL (0.1-1.0); FREE T4 (FREE THYROXINE) 0.89 ng/dL (0.76-1.46); THYROID STIMULATING HORMONE 3.08 uIU/mL (0.36-3.74); TOTAL PROTEIN, SERUM 6.8 g/dL (6.4-8.2)
[2019-08-28 02:01] LABS: B-TYPE NATRIURETIC PEPTIDE 87 pg/mL (0-100)
[2019-08-28 03:18] VITALS: BP 138/68
== END 2019-08-28 04:04 | disposition home or self-care (01) ==
LOC: EMS 00:21
DX: I63.9 Cerebral infarction, unspecified (principal); W19.XXXA Unspecified fall, initial encounter; Y93.89 Activity, other specified; Y92.89 Other specified places as the place of occurrence of the external cause; Y99.8 Other external cause status
CPT/HCPCS: 70450; 84439; 84443; 93005

== ENCOUNTER → 2019-12-05 | Outpatient (CLI) | payer MEDICARE, OTHER ==
[~2019-12-05] MED LIST changes: +AMLO-258 PO; -AMLO10TA7 PO; +CLOP-31 PO; -CLOP75TA3 PO; -LOSA-88 PO; +LOSA50TA37 PO
== END | disposition home or self-care (01) ==
LOC: SRCNTR 15:36
PROVIDERS: ATTEND Hospitalist
DX: I11.0 Hypertensive heart disease with heart failure (principal); I50.9 Heart failure, unspecified; J44.9 Chronic obstructive pulmonary disease, unspecified; E78.5 Hyperlipidemia, unspecified; I27.20 Pulmonary hypertension, unspecified; F03.90 Unspecified dementia, unspecified severity, without behavioral disturbance, psychotic disturbance, mood disturbance, and anxiety; E66.01 Morbid (severe) obesity due to excess calories
CPT/HCPCS: Q3014

== ENCOUNTER → 2020-01-02 | Outpatient (CLI) | payer MEDICARE, OTHER | END | disposition home or self-care (01) | LOC: RADMN 09:28 | PROVIDERS: ATTEND Physical Medicine & Rehabilitation | DX: M48.07 Spinal stenosis, lumbosacral region (principal); M51.27 Other intervertebral disc displacement, lumbosacral region; M48.061 Spinal stenosis, lumbar region without neurogenic claudication; M25.78 Osteophyte, vertebrae | CPT/HCPCS: 72148 ==

== ENCOUNTER → 2020-02-20 | Outpatient (CLI) | payer MEDICARE, OTHER ==
[~2020-02-20] VITALS: Ht 180.3 cm; Wt 78.0 kg
[~2020-02-20] MED LIST changes: +INFLUENZA VIRUS VACCINE QVS 2020-21 (6MO+)/PF 60 MCG/0.5 ML SYRINGE IM ONE; +OXYB5XL PO
[2020-02-20 16:04] VITALS: BP 145/82
== END | disposition home or self-care (01) ==
LOC: SRCNTR 11:13
PROVIDERS: ATTEND Hospitalist
DX: F41.9 Anxiety disorder, unspecified (principal); I10 Essential (primary) hypertension; E78.5 Hyperlipidemia, unspecified; K21.9 Gastro-esophageal reflux disease without esophagitis; R10.9 Unspecified abdominal pain; F31.9 Bipolar disorder, unspecified; F03.90 Unspecified dementia, unspecified severity, without behavioral disturbance, psychotic disturbance, mood disturbance, and anxiety; H40.9 Unspecified glaucoma; Z23 Encounter for immunization
CPT/HCPCS: 90471; 90686; G0463

== ENCOUNTER → 2020-06-04 | Outpatient (CLI) | payer MEDICARE, OTHER ==
[~2020-06-04] VITALS: Ht 180.3 cm; Wt 78.0 kg
[~2020-06-04] MED LIST changes: -CLOP-31 PO; +CLOP75TA60 PO; -INFLUENZA VIRUS VACCINE QVS 2020-21 (6MO+)/PF 60 MCG/0.5 ML SYRINGE IM ONE; +METOPROLOL PO
[2020-06-04 11:54] VITALS: BP 127/58
== END | disposition home or self-care (01) ==
LOC: SRCNTR 11:19
PROVIDERS: ATTEND Hospitalist
DX: M54.5 Low back pain (principal); I11.0 Hypertensive heart disease with heart failure; I50.30 Unspecified diastolic (congestive) heart failure; J44.9 Chronic obstructive pulmonary disease, unspecified; D50.9 Iron deficiency anemia, unspecified; E78.5 Hyperlipidemia, unspecified; J18.9 Pneumonia, unspecified organism; I27.20 Pulmonary hypertension, unspecified; I35.1 Nonrheumatic aortic (valve) insufficiency; I82.90 Acute embolism and thrombosis of unspecified vein; E66.9 Obesity, unspecified; F03.90 Unspecified dementia, unspecified severity, without behavioral disturbance, psychotic disturbance, mood disturbance, and anxiety; I67.9 Cerebrovascular disease, unspecified
CPT/HCPCS: G0463

== ENCOUNTER → 2020-07-16 | Outpatient (CLI) | payer MEDICARE, OTHER ==
[~2020-07-16] MED LIST changes: -ASPI-1111 PO; +ASPI-1444 PO; +DONE5TAB5 PO; +MAGN400T7 PO; -MAGOX PO
[2020-07-16 12:26] LABS: BASOPHILS % (AUTO) 0.3 % (0.0-2.0); EOSINOPHILS % (AUTO) 2.7 % (1.0-6.0); HEMATOCRIT 32.5 % (36-46); HEMOGLOBIN 10.3 g/dL (12.0-16.0); LYMPHOCYTES # (AUTO) 0.8 K/uL (1.0-4.8); LYMPHOCYTES % (AUTO) 26.9 % (22.0-44.0); MEAN CORPUSCULAR HEMOGLOBIN 23.5 pg (26.0-34.0); MEAN CORPUSCULAR HGB CONC 31.7 G/dL (31.0-37.0); MEAN CORPUSCULAR VOLUME 74 fL (80-100); MONOCYTES # (AUTO) 0.3 K/uL (0.1-1.0); MONOCYTES % (AUTO) 10.4 % (2.0-9.0); NEUTROPHILS # (AUTO) 1.8 K/uL (1.8-7.7); NEUTROPHILS % (AUTO) 59.7 % (40.0-70.0); PLATELET COUNT (AUTO) 187 K/uL (150-450); RED BLOOD CELL COUNT(AUTO) 4.38 MIL/uL (4.00-5.20); RED CELL DISTRIBUTION WIDTH 16.7 % (11.5-14.5)
[2020-07-16 12:52] LABS: ALANINE AMINOTRANSFERASE 12 U/L (12-78); ALBUMIN 3.8 g/dL (3.4-5.0); ALKALINE PHOSPHATASE 69 U/L (46-116); ANION GAP 9 mmol/L (8-16); ASPARTATE AMINOTRANSFERASE 16 U/L (15-37); BILIRUBIN,TOTAL 0.4 mg/dL (0.1-1.0); CALCIUM, TOTAL 9.2 mg/dL (8.8-10.5); CARBON DIOXIDE 29 mmol/L (22-29); CHLORIDE 104 mmol/L (98-107); CHOL/HDL RATIO 2.4 (3.9-5.7); CHOLESTEROL 138 mg/dL (131-200); GLUCOSE,RANDOM 101 mg/dL (70-110); HDL CHOLESTEROL 57 mg/dL (40-60); LDL CHOL (CALC.) 57 mg/dL (0-130); POTASSIUM 3.8 mmol/L (3.5-5.1); SODIUM SERUM 142 mmol/L (136-145); THYROID STIMULATING HORMONE 2.66 uIU/mL (0.36-3.74); TOTAL PROTEIN, SERUM 7.4 g/dL (6.4-8.2); TRIGLYCERIDES 121 mg/dL (15-150); UREA NITROGEN, BLOOD 16 mg/dL (7-18)
[2020-07-16 12:54] LABS: GLOMERULAR FILTR. RATE CALC > 60 mL/min (>60)
== END | disposition home or self-care (01) ==
LOC: LABPV 11:42
PROVIDERS: ATTEND Hospitalist
DX: G45.9 Transient cerebral ischemic attack, unspecified (principal); R41.0 Disorientation, unspecified
CPT/HCPCS: 84443

== ENCOUNTER → 2020-07-16 | Outpatient (CLI) | payer MEDICARE, OTHER ==
[~2020-07-16] VITALS: Ht 180.3 cm; Wt 74.0 kg
[2020-07-16 10:28] VITALS: BP 138/68
== END | disposition home or self-care (01) ==
LOC: SRCNTR 10:06
PROVIDERS: ATTEND Hospitalist
DX: I11.0 Hypertensive heart disease with heart failure (principal); I50.30 Unspecified diastolic (congestive) heart failure; J44.9 Chronic obstructive pulmonary disease, unspecified; D50.9 Iron deficiency anemia, unspecified; E78.5 Hyperlipidemia, unspecified; J18.9 Pneumonia, unspecified organism; I27.20 Pulmonary hypertension, unspecified; I35.1 Nonrheumatic aortic (valve) insufficiency; I82.409 Acute embolism and thrombosis of unspecified deep veins of unspecified lower extremity; E66.9 Obesity, unspecified; M54.5 Low back pain; F03.90 Unspecified dementia, unspecified severity, without behavioral disturbance, psychotic disturbance, mood disturbance, and anxiety
CPT/HCPCS: G0463

== ENCOUNTER → 2020-07-29 | Outpatient (CLI) | payer MEDICARE, OTHER ==
[~2020-07-29] VITALS: Ht 180.3 cm; Wt 77.5 kg
[2020-07-29 12:06] VITALS: BP 140/58
== END | disposition home or self-care (01) ==
LOC: SRCNTR 11:24
PROVIDERS: ATTEND Internal Medicine Critical Care Medicine
DX: I10 Essential (primary) hypertension (principal); J44.1 Chronic obstructive pulmonary disease with (acute) exacerbation; J96.10 Chronic respiratory failure, unspecified whether with hypoxia or hypercapnia; G47.33 Obstructive sleep apnea (adult) (pediatric); F32.9 Major depressive disorder, single episode, unspecified
CPT/HCPCS: G0463

== ENCOUNTER → 2020-08-03 | Outpatient (CLI) | payer MEDICARE, OTHER ==
[2020-08-03 12:08] LABS: APPEARANCE,URINE CLEAR (CLEAR); BILIRUBIN,URINE NEGATIVE (NEGATIVE); GLUCOSE, URINE (UA) NEGATIVE (NEGATIVE); KETONES,URINE NEGATIVE (NEGATIVE); LEUKOCYTE ESTERASE ,URINE TRACE (NEGATIVE); NITRATE,URINE NEGATIVE (NEGATIVE); OCCULT BLOOD,URINE NEGATIVE (NEGATIVE); PH,URINE 5.5 (5.0-8.0); PROTEIN,URINE NEGATIVE (NEGATIVE); UROBILINOGEN,URINE 0.2 mg/dL (<=1.0)
[2020-08-03 12:41] LABS: BACTERIA,URINE None Seen /HPF (None Seen); RBC,URINE None Seen /HPF (0-2); SQUAMOUS EPITHELIAL CELL,UR Few /LPF (None Seen); WBC,URINE 0-2 /HPF (0-5)
== END | disposition home or self-care (01) ==
LOC: RADPV 10:13
PROVIDERS: ATTEND Hospitalist
DX: I51.7 Cardiomegaly (principal); J44.9 Chronic obstructive pulmonary disease, unspecified; R41.0 Disorientation, unspecified; G45.9 Transient cerebral ischemic attack, unspecified
CPT/HCPCS: 82043; 82570; 93880; 71046; 71046-TC

== ENCOUNTER → 2020-10-22 | Outpatient (CLI) | payer MEDICARE, OTHER ==
[~2020-10-22] MED LIST changes: -EZET10TA13 PO; +EZET10TA57 PO; +FLUO10CA24 PO; -PROZ10 PO
[2020-10-22 11:27] VITALS: BP 104/57
== END | disposition home or self-care (01) ==
LOC: SRCNTR 10:46
PROVIDERS: ATTEND Hospitalist
DX: J44.9 Chronic obstructive pulmonary disease, unspecified (principal); I11.0 Hypertensive heart disease with heart failure; I50.30 Unspecified diastolic (congestive) heart failure; E78.5 Hyperlipidemia, unspecified; I27.20 Pulmonary hypertension, unspecified; E66.9 Obesity, unspecified; M54.5 Low back pain; J18.9 Pneumonia, unspecified organism; F03.90 Unspecified dementia, unspecified severity, without behavioral disturbance, psychotic disturbance, mood disturbance, and anxiety; D50.9 Iron deficiency anemia, unspecified; I67.9 Cerebrovascular disease, unspecified; Z79.82 Long term (current) use of aspirin; Z79.899 Other long term (current) drug therapy; Z88.0 Allergy status to penicillin; Z88.2 Allergy status to sulfonamides; Z88.5 Allergy status to narcotic agent
CPT/HCPCS: G0463; Z7500

== ENCOUNTER → 2020-10-29 | Outpatient (CLI) | payer MEDICARE, OTHER ==
[~2020-10-29] MED LIST changes: +IOHEXOL 350 MG/ML 100 ML VIAL ONE; +SODIUM CHLORIDE 0.9% 100 ML ONE
== END | disposition home or self-care (01) ==
LOC: RADMN 09:59
PROVIDERS: ATTEND Hospitalist
DX: I31.3 Pericardial effusion (noninflammatory) (principal); K83.8 Other specified diseases of biliary tract; I51.7 Cardiomegaly; R16.0 Hepatomegaly, not elsewhere classified; R19.09 Other intra-abdominal and pelvic swelling, mass and lump; Z90.49 Acquired absence of other specified parts of digestive tract
CPT/HCPCS: 74177; A9575; J7050

== ENCOUNTER → 2020-12-17 | Outpatient (CLI) | payer MEDICARE, OTHER ==
[~2020-12-17] VITALS: Ht 180.3 cm; Wt 79.0 kg
[~2020-12-17] MED LIST changes: -BIMA12.5OS OU; +BIMA2.5D4 OU; -IOHEXOL 350 MG/ML 100 ML VIAL ONE; +OXYB-34 PO; -OXYB5XL PO; -SODIUM CHLORIDE 0.9% 100 ML ONE
[2020-12-17 11:12] VITALS: BP 128/66
== END | disposition home or self-care (01) ==
LOC: SRCNTR 10:34
PROVIDERS: ATTEND Hospitalist
DX: Z45.010 Encounter for checking and testing of cardiac pacemaker pulse generator [battery] (principal)
CPT/HCPCS: G0463; Z7500

== ENCOUNTER → 2021-03-17 | Outpatient (CLI) | payer MEDICARE, OTHER ==
[~2021-03-17] VITALS: Ht 180.3 cm; Wt 79.6 kg
[~2021-03-17] MED LIST changes: +INFLUENZA VIRUS VACCINE QVS 2021-22 (6MO+)/PF 60 MCG/0.5 ML SYRINGE IM. ONE
[2021-03-17 12:07] VITALS: BP 130/57
== END | disposition home or self-care (01) ==
LOC: SRCNTR 11:36
PROVIDERS: ATTEND Hospitalist
DX: Z23 Encounter for immunization (principal)
CPT/HCPCS: 90471; 90686; G0463

== ENCOUNTER 2021-05-02 12:15 | Emergency (ER) | payer MEDICARE, OTHER ==
[~2021-05-02] VITALS: Ht 170.2 cm; Wt 75.0 kg
[~2021-05-02 12:15] MED LIST changes: -INFLUENZA VIRUS VACCINE QVS 2021-22 (6MO+)/PF 60 MCG/0.5 ML SYRINGE IM. ONE; +LOSA-382 PO; -LOSA50TA37 PO
[2021-05-02 15:42] LABS: COVID AG,FIA SOURCE NASOPHARYNGEAL
[2021-05-02 16:57] VITALS: BP 118/60
== END 2021-05-02 17:00 | disposition home or self-care (01) ==
LOC: EMS 12:17
DX: U07.1 COVID-19 (principal); I10 Essential (primary) hypertension; E78.00 Pure hypercholesterolemia, unspecified; J44.9 Chronic obstructive pulmonary disease, unspecified; Z88.0 Allergy status to penicillin; Z88.2 Allergy status to sulfonamides; Z88.8 Allergy status to other drugs, medicaments and biological substances; Z79.899 Other long term (current) drug therapy; Z79.82 Long term (current) use of aspirin
CPT/HCPCS: 71045; 87426; 99284; U0003

== ENCOUNTER → 2021-06-09 | Outpatient (CLI) | payer MEDICARE, OTHER ==
[~2021-06-09] VITALS: Ht 180.3 cm; Wt 78.0 kg
[2021-06-09 11:20] VITALS: BP 118/63
== END | disposition home or self-care (01) ==
LOC: SRCNTR 10:43
PROVIDERS: ATTEND Hospitalist
DX: J44.9 Chronic obstructive pulmonary disease, unspecified (principal); G89.29 Other chronic pain; I10 Essential (primary) hypertension; I27.20 Pulmonary hypertension, unspecified; E78.5 Hyperlipidemia, unspecified; J18.9 Pneumonia, unspecified organism; D50.9 Iron deficiency anemia, unspecified; I50.30 Unspecified diastolic (congestive) heart failure; I35.1 Nonrheumatic aortic (valve) insufficiency; I82.409 Acute embolism and thrombosis of unspecified deep veins of unspecified lower extremity; E66.9 Obesity, unspecified; M54.50 Low back pain, unspecified; F03.90 Unspecified dementia, unspecified severity, without behavioral disturbance, psychotic disturbance, mood disturbance, and anxiety; I67.9 Cerebrovascular disease, unspecified; M43.6 Torticollis
CPT/HCPCS: G0463; Z7500

== ENCOUNTER → 2021-07-05 | Outpatient (CLI) | payer MEDICARE, OTHER ==
[~2021-07-05] MED LIST changes: +CYCL10TA17 PO
== END | disposition home or self-care (01) ==
LOC: RADMN 13:47
PROVIDERS: ATTEND Hospitalist
DX: R90.82 White matter disease, unspecified (principal); I63.50 Cerebral infarction due to unspecified occlusion or stenosis of unspecified cerebral artery; G93.89 Other specified disorders of brain; J32.0 Chronic maxillary sinusitis; R51.9 Headache, unspecified
CPT/HCPCS: 70450

== ENCOUNTER 2021-07-07 14:24 | Emergency (ER) | payer MEDICARE, OTHER ==
[~2021-07-07] VITALS: Ht 170.2 cm; Wt 75.9 kg
[~2021-07-07 14:24] MED LIST changes: -CYCL10TA17 PO
[2021-07-07] MEDS ORDERED: METOCLOPRAMIDE HCL 5 MG/ML 2 ML VIAL IVP ONE (15:30)
[2021-07-07] MEDS ORDERED: KETOROLAC TROMETHAMINE 30 MG/ML VIAL IVP ONE (15:30)
[2021-07-07] MEDS ORDERED: SODIUM CHLORIDE 0.9% 1,000 ML IV ONE (15:30)
[2021-07-07] MEDS ORDERED: DiphenhydrAMINE HCL 50 MG/ML VIAL IVP ONE (15:30)
[2021-07-07 15:48] LABS: BASOPHILS % (AUTO) 0.5 % (0.0-2.0); EOSINOPHILS % (AUTO) 0.9 % (1.0-6.0); LYMPHOCYTES # (AUTO) 0.9 K/uL (1.0-4.8); LYMPHOCYTES % (AUTO) 24.5 % (22.0-44.0); MEAN CORPUSCULAR HEMOGLOBIN 22.7 pg (26.0-34.0); MEAN CORPUSCULAR HGB CONC 30.2 G/dL (31.0-37.0); MEAN CORPUSCULAR VOLUME 75 fL (80-100); MONOCYTES # (AUTO) 0.4 K/uL (0.1-1.0); MONOCYTES % (AUTO) 10.4 % (2.0-9.0); NEUTROPHILS # (AUTO) 2.2 K/uL (1.8-7.7); NEUTROPHILS % (AUTO) 63.7 % (40.0-70.0); PLATELET COUNT (AUTO) 205 K/uL (150-450); RED BLOOD CELL COUNT(AUTO) 4.39 MIL/uL (4.00-5.20); RED CELL DISTRIBUTION WIDTH 17.3 % (11.5-14.5)
[2021-07-07 16:02] LABS: ANION GAP 9 mmol/L (8-16); CALCIUM, TOTAL 9.4 mg/dL (8.8-10.5); CARBON DIOXIDE 29 mmol/L (22-29); CHLORIDE 102 mmol/L (98-107); CREATININE 0.89 mg/dL (0.60-1.30); GLUCOSE,RANDOM 95 mg/dL (70-110); POTASSIUM 4.2 mmol/L (3.5-5.1); SODIUM SERUM 140 mmol/L (136-145); UREA NITROGEN, BLOOD 17 mg/dL (7-18)
[2021-07-07 16:06] LABS: GLOMERULAR FILTR. RATE CALC > 60 mL/min (>60)
[2021-07-07 16:22] VITALS: BP 112/54
[2021-07-07] MEDS ORDERED: CYCL10TA17 PO (17:10)
== END 2021-07-07 17:57 | disposition home or self-care (01) ==
LOC: EMS 14:30
DX: R51.9 Headache, unspecified (principal); R42 Dizziness and giddiness; J44.9 Chronic obstructive pulmonary disease, unspecified; F32.9 Major depressive disorder, single episode, unspecified; E78.00 Pure hypercholesterolemia, unspecified; I10 Essential (primary) hypertension; Z90.89 Acquired absence of other organs; Z86.73 Personal history of transient ischemic attack (TIA), and cerebral infarction without residual deficits; Z88.8 Allergy status to other drugs, medicaments and biological substances; Z88.0 Allergy status to penicillin; Z88.1 Allergy status to other antibiotic agents
CPT/HCPCS: 36415; 80048; 85025; 96361; 96374; 96375; 99284; J1200; J1885; J2765; J7030

== ENCOUNTER → 2022-01-19 | Outpatient (CLI) | payer MEDICARE, OTHER ==
[~2022-01-19] MED LIST changes: +ALPR-705 PO; +CYCL-448 PO; +DONE-52 PO; -DONE5TAB5 PO; +INFLUENZA VIRUS VACCINE QVS 2022-23 (6MO+)/PF 60 MCG/0.5 ML SYRINGE IM. ONE
[2022-01-19 14:33] VITALS: BP 138/68
== END | disposition home or self-care (01) ==
LOC: SRCNTR 11:03
PROVIDERS: ATTEND Hospitalist
DX: Z23 Encounter for immunization (principal); J44.1 Chronic obstructive pulmonary disease with (acute) exacerbation; E66.9 Obesity, unspecified; I11.0 Hypertensive heart disease with heart failure; I50.9 Heart failure, unspecified; E78.5 Hyperlipidemia, unspecified; J96.10 Chronic respiratory failure, unspecified whether with hypoxia or hypercapnia
CPT/HCPCS: 90471; 90686; G0008

== ENCOUNTER → 2022-01-31 | Outpatient (CLI) | payer MEDICARE, OTHER ==
[~2022-01-31] MED LIST changes: -INFLUENZA VIRUS VACCINE QVS 2022-23 (6MO+)/PF 60 MCG/0.5 ML SYRINGE IM. ONE
== END | disposition home or self-care (01) ==
LOC: RADMN 13:23
PROVIDERS: ATTEND Internal Medicine Pulmonary Disease
DX: J44.1 Chronic obstructive pulmonary disease with (acute) exacerbation (principal)
CPT/HCPCS: 71046

== ENCOUNTER → 2022-01-31 | Outpatient (CLI) | payer MEDICARE, OTHER ==
[2022-01-31 13:45] VITALS: BP 127/58
== END | disposition home or self-care (01) ==
LOC: SRCNTR 12:01
PROVIDERS: ATTEND Internal Medicine Critical Care Medicine
DX: I11.0 Hypertensive heart disease with heart failure (principal); I50.9 Heart failure, unspecified; J44.1 Chronic obstructive pulmonary disease with (acute) exacerbation; E78.5 Hyperlipidemia, unspecified; I27.20 Pulmonary hypertension, unspecified; I35.1 Nonrheumatic aortic (valve) insufficiency; E66.9 Obesity, unspecified; G47.33 Obstructive sleep apnea (adult) (pediatric); J96.10 Chronic respiratory failure, unspecified whether with hypoxia or hypercapnia
CPT/HCPCS: G0463; Z7500

== ENCOUNTER → 2022-06-07 | Outpatient (CLI) | payer MEDICARE, OTHER ==
[~2022-06-07] VITALS: Ht 177.8 cm; Wt 74.0 kg
[~2022-06-07] MED LIST changes: +LACT10SO10 PO; -RANO500T3 PO; +[UNRECOGNIZED DRUG - CODE] PO
[2022-06-07 13:49] VITALS: BP 121/54
== END | disposition home or self-care (01) ==
LOC: SRCNTR 13:33
PROVIDERS: ATTEND Hospitalist
DX: I11.0 Hypertensive heart disease with heart failure (principal); I50.30 Unspecified diastolic (congestive) heart failure; Z09 Encounter for follow-up examination after completed treatment for conditions other than malignant neoplasm; D50.9 Iron deficiency anemia, unspecified; E78.5 Hyperlipidemia, unspecified; J18.9 Pneumonia, unspecified organism; I27.21 Secondary pulmonary arterial hypertension; I35.1 Nonrheumatic aortic (valve) insufficiency; I82.409 Acute embolism and thrombosis of unspecified deep veins of unspecified lower extremity; E66.9 Obesity, unspecified; M54.50 Low back pain, unspecified; F03.90 Unspecified dementia, unspecified severity, without behavioral disturbance, psychotic disturbance, mood disturbance, and anxiety; G89.29 Other chronic pain
CPT/HCPCS: G0463; Z7500

== ENCOUNTER → 2022-07-12 | Outpatient (CLI) | payer MEDICARE, OTHER ==
[~2022-07-12] MED LIST changes: +CODE10LI PO; +RANO500T27 PO; -[UNRECOGNIZED DRUG - CODE] PO
== END | disposition home or self-care (01) ==
LOC: RADMN 14:49
PROVIDERS: ATTEND Hospitalist
DX: R91.8 Other nonspecific abnormal finding of lung field (principal); I51.7 Cardiomegaly; Q25.46 Tortuous aortic arch; M47.814 Spondylosis without myelopathy or radiculopathy, thoracic region; R05.9 Cough, unspecified
CPT/HCPCS: 71046

== ENCOUNTER 2022-07-18 03:04 | Emergency (ER) | payer MEDICARE, OTHER ==
[~2022-07-18] VITALS: Ht 167.6 cm; Wt 76.0 kg
[2022-07-18] MEDS ORDERED: PROPOFOL 1000 MG/ISO-OSM 100 ML ONE (03:23)
[2022-07-18] MEDS ORDERED: PROPOFOL 1000 MG/ISO-OSM 100 ML IV PRN (03:30)
[2022-07-18] MEDS ORDERED: 0.9% SODIUM CHLORIDE 10 ML SYRINGE IVP PRN (03:45)
[2022-07-18] MEDS ORDERED: SODIUM CHLORIDE 0.9% 2,300 ML IV ONE (03:45)
[2022-07-18] MEDS ORDERED: LEVOFLOXACIN 750 MG/D5% WATER 150 ML IV ONE (03:45)
[2022-07-18 03:52] LABS: SOURCE, BLOOD GAS ARTERIAL; TEMPERATURE, FAHRENHEIT, BG 98.6 FAHREN (96.0-98.6)
[2022-07-18] MEDS ORDERED: NOREPINEPHRINE 8 MG/D5%-WATER 250 ML IV PRN (04:15)
[2022-07-18 04:46] LABS: ANION GAP 13 mmol/L (8-16); CALCIUM, TOTAL 8.2 mg/dL (8.8-10.5); CARBON DIOXIDE 25 mmol/L (22-29); CHLORIDE 107 mmol/L (98-107); CREATININE 1.32 mg/dL (0.60-1.30); GLOMERULAR FILTR. RATE CALC 47 mL/min (>60); GLUCOSE,RANDOM 282 mg/dL (70-110); POTASSIUM 5.2 mmol/L (3.5-5.1); SODIUM SERUM 145 mmol/L (136-145); UREA NITROGEN, BLOOD 17 mg/dL (7-18)
[2022-07-18 04:50] LABS: ABG BASE EXCESS -11.6 mmol/L (-2.0-3.0); ABG CARBOXYHEMOGLOBIN 0.2 % (0.0-1.5); ABG HCO3 14.6 mmol/L (22.0-26.0); ABG METHEMOGLOBIN 0.4 % (0.0-1.5); ABG OXYGEN CONTENT 7.3 mL/dL (15.0-23.0); ABG OXYHEMOGLOBIN 62.4 % (94.0-100.0); ABG TOTAL HEMOGLOBIN 8.2 G/dL (12.0-18.0); PO2, ARTERIAL BG 58.4 mmHg (71.0-79.0)
[2022-07-18 04:52] LABS: ABG OXYGEN SATURATION 62.8 % (95.0-98.0); ABG PCO2 111 mmHg (35-45); ABG PH 6.899 (7.35-7.450)
[2022-07-18 04:53] LABS: O2 DEVICE,BLOOD GAS VENTILATOR (ROOM AIR); PEEP,BG 5 cm H2O; SITE, BLOOD GAS RT BRACHIAL; VT, ABG 450 ml
[2022-07-18 05:19] LABS: B-TYPE NATRIURETIC PEPTIDE 569 pg/mL (0-100)
[2022-07-18] MEDS ORDERED: IOHEXOL 350 MG/ML 100 ML VIAL ONE (05:25)
[2022-07-18] MEDS ORDERED: SODIUM CHLORIDE 0.9% 100 ML ONE (05:25)
[2022-07-18 05:49] LABS: COVID AG,FIA SOURCE NASAL SWAB
[2022-07-18 05:54] LABS: APPEARANCE,URINE CLEAR (CLEAR); BILIRUBIN,URINE NEGATIVE (NEGATIVE); GLUCOSE, URINE (UA) NEGATIVE (NEGATIVE); KETONES,URINE NEGATIVE (NEGATIVE); LEUKOCYTE ESTERASE ,URINE NEGATIVE (NEGATIVE); NITRATE,URINE NEGATIVE (NEGATIVE); OCCULT BLOOD,URINE NEGATIVE (NEGATIVE); PROTEIN,URINE NEGATIVE (NEGATIVE); SPECIFIC GRAVITIY, URINE 1.015 (1.003-1.030); UROBILINOGEN,URINE <=1.0 mg/dL (<=1.0)
[2022-07-18 05:59] LABS: AMPHET/METH SCREEN,URINE POSITIVE (NEGATIVE); BARBITURATE SCREEN, URINE NEGATIVE (NEGATIVE); BENZODIAZEPINES SCREEN,URINE NEGATIVE (NEGATIVE); CANNABINOID SCREEN,URINE NEGATIVE (NEGATIVE); COCAINE SCREEN,URINE NEGATIVE (NEGATIVE); METHADONE SCREEN, URINE NEGATIVE (NEGATIVE); OPIATE SCREEN,URINE NEGATIVE (NEGATIVE); PHENCYCLIDINE SCREEN,URINE NEGATIVE (NEGATIVE)
[2022-07-18 06:10] LABS: INFLUENZA TYPE A NEGATIVE FOR TYPE A (NEGATIVE); INFLUENZA TYPE B NEGATIVE FOR TYPE B (NEGATIVE)
[2022-07-18] MEDS: EPINEPHrine 2 MG in DEXTROSE 5%-WATER 248 ML IV PRN ×10 (06:14→14:05)
[2022-07-18 06:15] LABS: HEMATOCRIT 22.6 % (36-46); MEAN CORPUSCULAR HEMOGLOBIN 23.6 pg (26.0-34.0); MEAN CORPUSCULAR HGB CONC 30.8 G/dL (31.0-37.0); MEAN CORPUSCULAR VOLUME 77 fL (80-100); PLATELET COUNT (AUTO) 285 K/uL (150-450); RED BLOOD CELL COUNT(AUTO) 2.96 MIL/uL (4.00-5.20); RED CELL DISTRIBUTION WIDTH 16.9 % (11.5-14.5)
[2022-07-18] MEDS ORDERED: SENN-187 PO (06:29)
[2022-07-18] MEDS ORDERED: BENZ-227 PO (06:29)
[2022-07-18] MEDS ORDERED: FLUO20CA36 PO (06:29)
[2022-07-18] MEDS ORDERED: POLY17PO47 PO (06:29)
[2022-07-18] MEDS ORDERED: MEMA10TA11 PO (06:29)
[2022-07-18] MEDS ORDERED: AMLO-257 PO (06:29)
[2022-07-18 06:44] LABS: AMMONIA 38 umol/L (11-32)
[2022-07-18 06:47] LABS: ALANINE AMINOTRANSFERASE 141 U/L (12-78); ALBUMIN 1.7 g/dL (3.4-5.0); ALKALINE PHOSPHATASE 248 U/L (46-116); ASPARTATE AMINOTRANSFERASE 224 U/L (15-37); BILIRUBIN,TOTAL 0.3 mg/dL (0.1-1.0); C-REACTIVE PROTEIN QUANT 16.75 mg/dL (0.00-0.30); CREATINE KINASE, TOTAL ONLY 89 U/L (26-192); FERRITIN 2153 ng/mL (8-252); TOTAL PROTEIN, SERUM 5.3 g/dL (6.4-8.2)
[2022-07-18 06:50] LABS: LACTIC ACID 11.3 mmol/L (0.4-2.0)
[2022-07-18 07:36] LABS: BAND NEUTROPHILS % (MANUAL) 20 % (0-5); LYMPHOCYTES % (MANUAL) 18 % (22-44); METAMYELOCYTES % 1 % (0-0); MONOCYTES % (MANUAL) 6 % (2-9); SEGMENTED NEUTROPHILS % 55 % (40-70); WBC MORPHOLOGY TOXIC GRANULATION
[2022-07-18 09:08] LABS: INR 1.7 (0.9-1.1); PROTHROMBIN TIME 17.7 SEC (9.4-11.6)
[2022-07-18 10:04] LABS: D-DIMER > 35.20 mg/L FEU (0.00-0.50)
[2022-07-18] MEDS ORDERED: *CLINICAL-LEVOFLOXACIN IVPB DOSING CLINICAL ONE (11:45)
[2022-07-18] MEDS ORDERED: MetroNIDAZOLE 500 MG/NACL 100 ML IV SCH (12:00)
[2022-07-18 13:15] LABS: ABG BASE EXCESS -19.3 mmol/L (-2.0-3.0); ABG CARBOXYHEMOGLOBIN 0.3 % (0.0-1.5); ABG HCO3 9.7 mmol/L (22.0-26.0); ABG METHEMOGLOBIN 0.1 % (0.0-1.5); ABG OXYGEN CONTENT 6.6 mL/dL (15.0-23.0); ABG OXYGEN SATURATION 55.9 % (95.0-98.0); ABG OXYHEMOGLOBIN 55.7 % (94.0-100.0); ABG PCO2 65 mmHg (35-45); ABG TOTAL HEMOGLOBIN 8.4 G/dL (12.0-18.0); PO2, ARTERIAL BG 36.9 mmHg (71.0-79.0); SITE, BLOOD GAS RT RADIAL; SOURCE, BLOOD GAS ARTERIAL
[2022-07-18 13:16] LABS: ABG A-A DIFF O2 618.2 mmHg (10-20.0); O2 DEVICE,BLOOD GAS VENTILATOR (ROOM AIR); PEEP,BG 5 cm H2O; VT, ABG 450 ml
[2022-07-18] MEDS ORDERED: LINEZOLID 600 MG/ISO-OSM 300 ML IV SCH (14:00)
[2022-07-18 14:25] VITALS: BP 148/80
[2022-07-18] MEDS ORDERED: IPRATROPIUM BROMIDE 0.5 MG/2.5 ML NEB SOLUTION NEB SCH (15:00)
[2022-07-18] MEDS ORDERED: ALBUTEROL SULFATE 2.5 MG/0.5 ML NEB SOLUTION NEB SCH (15:00)
[2022-07-18] MEDS ORDERED: SODIUM BICARBONATE 150 MEQ in DEXTROSE 5%-WATER 1,000 ML IV SCH (16:00)
[2022-07-18] MEDS ORDERED: DOCU240C25 PO (16:13)
[2022-07-18] MEDS ORDERED: CHOL200074 PO (16:13)
[2022-07-18] MEDS ORDERED: MEMA5TAB42 PO (16:13)
[2022-07-18] MEDS ORDERED: FLUO-341 PO (16:13)
[2022-07-18] MEDS ORDERED: FERR325T23 PO (16:13)
[2022-07-18] MEDS ORDERED: LIDOCAINE/PF 2% 5 ML SYRINGE IVP ONE (17:35)
[2022-07-18] MEDS ORDERED: ATROPINE SULFATE 0.1 MG/ML 10 ML SYRINGE IVP ONE (17:35)
[2022-07-18] MEDS ORDERED: SODIUM BICARBONATE [ADULT] 8.4% 50 MEQ/50 ML SYRINGE IVP ONE (17:35)
[2022-07-18] MEDS ORDERED: BUDESONIDE 0.5 MG/2 ML NEB SOLUTION NEB SCH (21:00)
[2022-07-20] MEDS ORDERED: LEVOFLOXACIN 750 MG/D5% WATER 150 ML IV SCH (06:00)
== END 2022-07-19 01:41 ==
LOC: EMS 03:05 → AHU 15:15 → UNDOADMIN 15:15 → EMS 07-19 01:41
DX: J96.90 Respiratory failure, unspecified, unspecified whether with hypoxia or hypercapnia (principal); I46.9 Cardiac arrest, cause unspecified; J18.9 Pneumonia, unspecified organism; J44.9 Chronic obstructive pulmonary disease, unspecified; F32.A Depression, unspecified; I10 Essential (primary) hypertension; Z90.49 Acquired absence of other specified parts of digestive tract; Z98.890 Other specified postprocedural states; Z88.0 Allergy status to penicillin; Z88.2 Allergy status to sulfonamides; Z88.8 Allergy status to other drugs, medicaments and biological substances; Z20.822 Contact with and (suspected) exposure to COVID-19
CPT/HCPCS: 99291; 94002; 70450; 31500; 96365; 71045; 96367; 96366; 87426; 80053; 81003; 82140; 82550; 82728; 83605; 83880; 84484; 85025; 85379; 85610; 85730; 86140; 87040; 87205; 87804; 87077; 82805; 36600; 71275; 99292; 93005; 96368; 84145; 36415; 80307 ×2; J0461; J2020; J3490 ×3; J2704; J1956; Q9967; J7050; J0171; J7060; G0378